=== PATIENT | male | born 1980 | race Caucasian/White ===

== ENCOUNTER 2017-11-24 05:33 | Inpatient (IN) ==
[2017-11-24] MEDS ORDERED: LORazepam 1 MG Tablet PO PRN (05:40)
--- NOTE | 2017-11-24 05:42 | ED ---
HPI General Chief Complaint: Psychiatric Symptoms Stated Complaint: Change in status Time Seen by Provider: 11/24/17 05:39 History of Present Illness HPI narrative: Patient is voluntary at [facility] alcohol detox became confused possibly hallucinating possibly going to alcohol withdrawal in spite of him being on a withdrawal protocol and is paramedics EVAC finds him to be hallucinating tachycardic hypertensive he arrives he is put on a [place] protocol Ativan 2 mg IV push is given and is put on a every 2hr CIWA protocol as well . continues with hallucinations and DT like presentation Related Data Home Medications Medication Instructions Recorded Confirmed desvenlafaxine succinate 50 mg PO DAILY 11/24/17 11/24/17 dexlansoprazole 60 mg PO DAILY 11/24/17 11/24/17 Allergies Allergy/AdvReac Type Severity Reaction Status Date / Time No Known Allergies Allergy Unverified 11/24/17 05:43 Review of Systems ROS Unobtainable ROS Unobtainable: unobtainable due to mental condition (acute alcohol withdrawal hallucinations) [facility] Medical History Medical History ETOH abuse (Acute) Social History Social History Substance History: No History of Abuse Smoking Status: Current every day smoker Tobacco Type: Cigarettes How Often Do You Have a Drink Containing Alcohol: 4 or more times a week Recent Travel in [facility] within the Last 8 Weeks: No Recent Out of Country Travel within the Last 8 Weeks: No Exam Narrative Exam Narrative: GENERAL: diaphoretic confused reacting to internal stimuli SKIN: Warm and diaphoretic HEAD: Atraumatic. Normocephalic. EYES: Pupils equal and round. No scleral icterus. No injection or drainage. ENT: No nasal bleeding or discharge. Mucous membranes pink and moist. NECK: Trachea midline. No JVD. CARDIOVASCULAR: tachycardia , htn RESPIRATORY: No accessory muscle use. Clear to auscultation. Breath sounds equal bilaterally. GASTROINTESTINAL: Abdomen soft, non-tender, nondistended. Hepatic and splenic margins not palpable. MUSCULOSKELETAL: Extremities without clubbing, cyanosis, or edema. No obvious deformities. NEUROLOGICAL: Awake confused ..No obvious cranial nerve deficits. Motor grossly within normal limits. Five out of 5 muscle strength in the arms and legs. bizarre speech reacting to hallucination PSYCHIATRIC: appears to be actively hallucinating in DTs Course Initial Documented Vital Signs Temperature 98.5 F 11/24/17 05:39 Pulse Rate 121 H 11/24/17 05:39 Respiratory Rate 18 11/24/17 05:39 Blood Pressure 145/77 H 11/24/17 05:39 Pulse Oximetry 95 11/24/17 05:39 Last Documented Vital Signs Temperature 101 F H 11/28/17 20:00 Pulse Rate 77 11/29/17 00:00 Respiratory Rate 21 11/28/17 23:45 Blood Pressure 118/74 11/28/17 20:00 Pulse Oximetry 100 11/29/17 01:40 Medical Decision Making MDM Narrative Medical decision making narrative: Pt immediately started on CIWA proeticol and Ativan @ mg IVP immediate and repeated 3 times in first hour still worsening DT benadryl 50 mg IVP and haldol 2 mg IVP and the Ketamine 50 mg IVP and ativan 2 mg followed by 2 mg ativan and then admitted to ICU discussed possible intubation and propofol drip with Dr Guerin of ICU , He will decide whether Intubation indicated when pt arriveds ti ICU Medical Screen Exam Complete: Yes Emergency Medical Condition: Yes Differential Diagnosis Differential Diagnosis: acute polysubstance intox vs acute alcohol withdrawal DTs hypertension tachycardia autonomic instability of etoh withdrawal syndrome acute Lab Data Result diagrams: 11/29/17 05:40 11/29/17 02:23 Lab Results 11/24/17 11/24/17 11/24/17 Range/Units 05:45 05:45 05:45 WBC 8.7 (4.0-11.0) th/mm3 RBC 5.61 (4.50-5.90) mil/mm3 Hgb 17.0 (13.0-17.0) gm/dL Hct 49.6 (39.0-51.0) % MCV 88.3 (80.0-100.0) fL MCH 30.3 (27.0-34.0) pg MCHC 34.3 (32.0-36.0) % RDW 15.2 (11.6-17.2) % Plt Count 184 (150-450) th/mm3 MPV 9.2 (7.0-11.0) fL Prelim Diff (Auto) Neut % (Auto) 77.0 H (16.0-70.0) % Lymph % (Auto) 11.1 (9.0-44.0) % Atkinson % (Auto) 10.7 H (0.0-8.0) % Eos % (Auto) 0.7 (0.0-4.0) % Baso % (Auto) 0.5 (0.0-2.0) % Neut # (Auto) 6.7 (1.8-7.7) th/mm3 Lymph # (Auto) 1.0 (1.0-4.8) th/mm3 Atkinson # (Auto) 0.9 (0.0-0.9) th/mm3 Eos # (Auto) 0.1 (0.0-0.4) th/mm3 Baso # (Auto) 0.0 (0.0-0.2) th/mm3 WBC Differential . Seg Neuts % (Manual) (16-70) % Band Neuts % (Manual) (0-6) % Lymphocytes % (Manual) (9-44) % Monocytes % (Manual) (0-8) % Myelocytes % (Man) (0-0) % Abs Neuts (Manual) (1.8-7.7) th/mm3 Differential Comment Auto diff final Toxic Vacuolation (None) Dohle Bodies (None) Platelet Estimate (Normal) Platelet Morphology (Normal) Stomatocytes (None) PT (9.8-11.6) sec INR Ratio APTT (24.3-30.1) sec Thrombin Time Fibrinogen (227-377) mg/dL Lupus Anticoagulant (NOT DETECTED) LA PTT Screen (< OR = 40) seconds dRVVT Screen (< OR = 45) seconds LA dRVVT Confirm (NEGATIVE) dRVVT Mix (CORRECTED) Hexagonal Phase Confirm APC Resistance (> OR = 2.1) ratio Antithrombin III Activ (80-120) % normal Factor VIII Activity (50-180) % normal Puncture Site Patient Temperature O2 Saturation (90-100) % ABG pH (7.380-7.420) ABG pCO2 (38-42) mmHg ABG pO2 (61-120) mmHG ABG HCO3 (22-26) mmol/L ABG O2 Content (12.0-20.0) Vol % ABG Base Excess (-2-2) mmol/L ABG Methemoglobin (0-2) % Hemal Test Hemoglobin (12.0-16.0) G/DL Carboxyhemoglobin (0-4) % O2 Delivery Device Vent Setting Inspired O2 % Critical Value Sodium 133 L (136-145) meq/L Potassium 3.2 L (3.5-5.1) meq/L Chloride 97 L (98-107) meq/L Carbon Dioxide 22.7 (21.0-32.0) meq/L Anion Gap 13 (5-15) meq/L BUN 8 (7-18) mg/dL Creatinine 1.00 (0.60-1.30) mg/dL Estimated GFR 85 L (>89) mL/min POC Glucose (68-110) mg/dl Random Glucose 119 H (74-106) mg/dL Calcium 9.1 (8.5-10.1) mg/dL Prot Corrected Calcium (8.5-10.1) mg/dL Phosphorus 2.7 (2.5-4.9) mg/dL Magnesium 1.5 (1.5-2.5) mg/dL Total Bilirubin 1.8 H (0.2-1.0) mg/dL AST 154 H (15-37) U/L ALT 158 H (12-78) U/L Alkaline Phosphatase 65 (45-117) U/L Total Creatine Kinase 450 H (39-308) U/L CK-MB (CK-2) 2.1 (0.5-3.6) ng/mL CK-MB (CK-2) % 0.5 (0.0-4.0) % Troponin I (0.02-0.05) ng/mL B-Natriuretic Peptide (0-100) pg/mL Total Protein 8.3 H (6.4-8.2) g/dL Albumin 4.2 (3.4-5.0) g/dL Lipase 131 (73-393) U/L Homocysteine Cardiovas (<11.4) umol/L Urine Color (Yellw/Straw) Urine Clarity (Clear) Urine pH (5.0-8.5) Ur Specific [place] (1.002-1.035) Urine Protein (Neg-Trace) mg/dL Urine Glucose (UA) (Negative) mg/dL Urine Ketones (Negative) mg/dL Urine Occult Blood (Negative) Urine Nitrate (Negative) Urine Bilirubin (Negative) Urine Urobilinogen (Less than 2) mg/dL Ur Leukocyte Esterase (Negative) Urine RBC (0-3) /hpf Urine WBC (0-5) /hpf Ur Squamous Epith Cells (0-5) /hpf Urine Bacteria (None) /hpf Urine Mucus (Occasional) /lpf Micro UA Comment Ur Microscopic Review Urine Culture Comments Nasal Screen MRSA (PCR) (Negative) Vancomycin Trough (5.0-10.0) mcg/mL Urine Opiates Screen (Neg) Ur Barbiturates Screen (Neg) Ur Amphetamines Screen (Neg) U Benzodiazepines Scrn (Neg) Urine Cocaine Screen (Neg) U Cannabinoids Screen (Neg) Serum Alcohol Less than 3 (0-5) mg/dL Hepatitis A IgM Ab (Nonreactive) Hep Bs Antigen (Nonreactive) Hep B Core IgM Ab (Nonreactive) Hep C IgG Ab (Nonreactive) MTHFR Mutation Detect Prothrombin [id number] Mut 11/24/17 11/24/17 11/24/17 Range/Units 07:14 07:33 07:33 WBC (4.0-11.0) th/mm3 RBC (4.50-5.90) mil/mm3 Hgb (13.0-17.0) gm/dL Hct (39.0-51.0) % MCV (80.0-100.0) fL MCH (27.0-34.0) pg MCHC (32.0-36.0) % RDW (11.6-17.2) % Plt Count (150-450) th/mm3 MPV (7.0-11.0) fL Prelim Diff (Auto) Neut % (Auto) (16.0-70.0) % Lymph % (Auto) (9.0-44.0) % Atkinson % (Auto) (0.0-8.0) % Eos % (Auto) (0.0-4.0) % Baso % (Auto) (0.0-2.0) % Neut # (Auto) (1.8-7.7) th/mm3 Lymph # (Auto) (1.0-4.8) th/mm3 Atkinson # (Auto) (0.0-0.9) th/mm3 Eos # (Auto) (0.0-0.4) th/mm3 Baso # (Auto) (0.0-0.2) th/mm3 WBC Differential Seg Neuts % (Manual) (16-70) % Band Neuts % (Manual) (0-6) % Lymphocytes % (Manual) (9-44) % Monocytes % (Manual) (0-8) % Myelocytes % (Man) (0-0) % Abs Neuts (Manual) (1.8-7.7) th/mm3 Differential Comment Toxic Vacuolation (None) Dohle Bodies (None) Platelet Estimate (Normal) Platelet Morphology (Normal) Stomatocytes (None) PT (9.8-11.6) sec INR Ratio APTT (24.3-30.1) sec Thrombin Time Fibrinogen (227-377) mg/dL Lupus Anticoagulant (NOT DETECTED) LA PTT Screen (< OR = 40) seconds dRVVT Screen (< OR = 45) seconds LA dRVVT Confirm (NEGATIVE) dRVVT Mix (CORRECTED) Hexagonal Phase Confirm APC Resistance (> OR = 2.1) ratio Antithrombin III Activ (80-120) % normal Factor VIII Activity (50-180) % normal Puncture Site Patient Temperature O2 Saturation (90-100) % ABG pH (7.380-7.420) ABG pCO2 (38-42) mmHg ABG pO2 (61-120) mmHG ABG HCO3 (22-26) mmol/L ABG O2 Content (12.0-20.0) Vol % ABG Base Excess (-2-2) mmol/L ABG Methemoglobin (0-2) % Hemal Test Hemoglobin (12.0-16.0) G/DL Carboxyhemoglobin (0-4) % O2 Delivery Device Vent Setting Inspired O2 % Critical Value Sodium (136-145) meq/L Potassium (3.5-5.1) meq/L Chloride (98-107) meq/L Carbon Dioxide (21.0-32.0) meq/L Anion Gap (5-15) meq/L BUN (7-18) mg/dL Creatinine (0.60-1.30) mg/dL Estimated GFR (>89) mL/min POC Glucose 123 H (68-110) mg/dl Random Glucose (74-106) mg/dL Calcium (8.5-10.1) mg/dL Prot Corrected Calcium (8.5-10.1) mg/dL Phosphorus (2.5-4.9) mg/dL Magnesium (1.5-2.5) mg/dL Total Bilirubin (0.2-1.0) mg/dL AST (15-37) U/L ALT (12-78) U/L Alkaline Phosphatase (45-117) U/L Total Creatine Kinase (39-308) U/L CK-MB (CK-2) (0.5-3.6) ng/mL CK-MB (CK-2) % (0.0-4.0) % Troponin I (0.02-0.05) ng/mL B-Natriuretic Peptide (0-100) pg/mL Total Protein (6.4-8.2) g/dL Albumin (3.4-5.0) g/dL Lipase (73-393) U/L Homocysteine Cardiovas (<11.4) umol/L Urine Color Yellow (Yellw/Straw) Urine Clarity Clear (Clear) Urine pH 6.0 (5.0-8.5) Ur Specific [place] 1.003 (1.002-1.035) Urine Protein Negative (Neg-Trace) mg/dL Urine Glucose (UA) Negative (Negative) mg/dL Urine Ketones Negative (Negative) mg/dL Urine Occult Blood Negative (Negative) Urine Nitrate Negative (Negative) Urine Bilirubin Negative (Negative) Urine Urobilinogen Less than 2 (Less than 2) mg/dL Ur Leukocyte Esterase Negative (Negative) Urine RBC 1 (0-3) /hpf Urine WBC Less than 1 (0-5) /hpf Ur Squamous Epith Cells (0-5) /hpf Urine Bacteria (None) /hpf Urine Mucus (Occasional) /lpf Micro UA Comment Ur Microscopic Review Not Reportable Urine Culture Comments Nasal Screen MRSA (PCR) (Negative) Vancomycin Trough (5.0-10.0) mcg/mL Urine Opiates Screen Neg (Neg) Ur Barbiturates Screen Neg (Neg) Ur Amphetamines Screen Neg (Neg) U Benzodiazepines Scrn Neg (Neg) Urine Cocaine Screen Neg (Neg) U Cannabinoids Screen Neg (Neg) Serum Alcohol (0-5) mg/dL Hepatitis A IgM Ab (Nonreactive) Hep Bs Antigen (Nonreactive) Hep B Core IgM Ab (Nonreactive) Hep C IgG Ab (Nonreactive) MTHFR Mutation Detect Prothrombin [id number] Mut 11/24/17 11/24/17 11/24/17 Range/Units 10:00 10:31 10:45 WBC (4.0-11.0) th/mm3 RBC (4.50-5.90) mil/mm3 Hgb (13.0-17.0) gm/dL Hct (39.0-51.0) % MCV (80.0-100.0) fL MCH (27.0-34.0) pg MCHC (32.0-36.0) % RDW (11.6-17.2) % Plt Count (150-450) th/mm3 MPV (7.0-11.0) fL Prelim Diff (Auto) Neut % (Auto) (16.0-70.0) % Lymph % (Auto) (9.0-44.0) % Atkinson % (Auto) (0.0-8.0) % Eos % (Auto) (0.0-4.0) % Baso % (Auto) (0.0-2.0) % Neut # (Auto) (1.8-7.7) th/mm3 Lymph # (Auto) (1.0-4.8) th/mm3 Atkinson # (Auto) (0.0-0.9) th/mm3 Eos # (Auto) (0.0-0.4) th/mm3 Baso # (Auto) (0.0-0.2) th/mm3 WBC Differential Seg Neuts % (Manual) (16-70) % Band Neuts % (Manual) (0-6) % Lymphocytes % (Manual) (9-44) % Monocytes % (Manual) (0-8) % Myelocytes % (Man) (0-0) % Abs Neuts (Manual) (1.8-7.7) th/mm3 Differential Comment Toxic Vacuolation (None) Dohle Bodies (None) Platelet Estimate (Normal) Platelet Morphology (Normal) Stomatocytes (None) PT (9.8-11.6) sec INR Ratio APTT (24.3-30.1) sec Thrombin Time Fibrinogen (227-377) mg/dL Lupus Anticoagulant (NOT DETECTED) LA PTT Screen (< OR = 40) seconds dRVVT Screen (< OR = 45) seconds LA dRVVT Confirm (NEGATIVE) dRVVT Mix (CORRECTED) Hexagonal Phase Confirm APC Resistance (> OR = 2.1) ratio Antithrombin III Activ (80-120) % normal Factor VIII Activity (50-180) % normal Puncture Site Right radial Patient Temperature 98.6 O2 Saturation 95 (90-100) % ABG pH 7.39 (7.380-7.420) ABG pCO2 40 (38-42) mmHg ABG pO2 114 (61-120) mmHG ABG HCO3 23 (22-26) mmol/L ABG O2 Content 20.1 H (12.0-20.0) Vol % ABG Base Excess -0.9 (-2-2) mmol/L ABG Methemoglobin 1.6 (0-2) % Hemal Test Present Hemoglobin 14.9 (12.0-16.0) G/DL Carboxyhemoglobin 0.9 (0-4) % O2 Delivery Device Ventilator Vent Setting [id number] Inspired O2 50 % Critical Value No Sodium (136-145) meq/L Potassium (3.5-5.1) meq/L Chloride (98-107) meq/L Carbon Dioxide (21.0-32.0) meq/L Anion Gap (5-15) meq/L BUN (7-18) mg/dL Creatinine (0.60-1.30) mg/dL Estimated GFR (>89) mL/min POC Glucose (68-110) mg/dl Random Glucose (74-106) mg/dL Calcium (8.5-10.1) mg/dL Prot Corrected Calcium (8.5-10.1) mg/dL Phosphorus (2.5-4.9) mg/dL Magnesium (1.5-2.5) mg/dL Total Bilirubin (0.2-1.0) mg/dL AST (15-37) U/L ALT (12-78) U/L Alkaline Phosphatase (45-117) U/L Total Creatine Kinase (39-308) U/L CK-MB (CK-2) (0.5-3.6) ng/mL CK-MB (CK-2) % (0.0-4.0) % Troponin I (0.02-0.05) ng/mL B-Natriuretic Peptide (0-100) pg/mL Total Protein (6.4-8.2) g/dL Albumin (3.4-5.0) g/dL Lipase (73-393) U/L Homocysteine Cardiovas (<11.4) umol/L Urine Color (Yellw/Straw) Urine Clarity (Clear) Urine pH (5.0-8.5) Ur Specific [place] (1.002-1.035) Urine Protein (Neg-Trace) mg/dL Urine Glucose (UA) (Negative) mg/dL Urine Ketones (Negative) mg/dL Urine Occult Blood (Negative) Urine Nitrate (Negative) Urine Bilirubin (Negative) Urine Urobilinogen (Less than 2) mg/dL Ur Leukocyte Esterase (Negative) Urine RBC (0-3) /hpf Urine WBC (0-5) /hpf Ur Squamous Epith Cells (0-5) /hpf Urine Bacteria (None) /hpf Urine Mucus (Occasional) /lpf Micro UA Comment Ur Microscopic Review Urine Culture Comments Nasal Screen MRSA (PCR) Not detected (Negative) Vancomycin Trough (5.0-10.0) mcg/mL Urine Opiates Screen (Neg) Ur Barbiturates Screen (Neg) Ur Amphetamines Screen (Neg) U Benzodiazepines Scrn (Neg) Urine Cocaine Screen (Neg) U Cannabinoids Screen (Neg) Serum Alcohol (0-5) mg/dL Hepatitis A IgM Ab Nonreactive (Nonreactive) Hep Bs Antigen Nonreactive (Nonreactive) Hep B Core IgM Ab Nonreactive (Nonreactive) Hep C IgG Ab Nonreactive (Nonreactive) MTHFR Mutation Detect Prothrombin [id number] Mut 11/24/17 11/24/17 11/24/17 Range/Units 11:16 12:07 16:46 WBC (4.0-11.0) th/mm3 RBC (4.50-5.90) mil/mm3 Hgb (13.0-17.0) gm/dL Hct (39.0-51.0) % MCV (80.0-100.0) fL MCH (27.0-34.0) pg MCHC (32.0-36.0) % RDW (11.6-17.2) % Plt Count (150-450) th/mm3 MPV (7.0-11.0) fL Prelim Diff (Auto) Neut % (Auto) (16.0-70.0) % Lymph % (Auto) (9.0-44.0) % Atkinson % (Auto) (0.0-8.0) % Eos % (Auto) (0.0-4.0) % Baso % (Auto) (0.0-2.0) % Neut # (Auto) (1.8-7.7) th/mm3 Lymph # (Auto) (1.0-4.8) th/mm3 Atkinson # (Auto) (0.0-0.9) th/mm3 Eos # (Auto) (0.0-0.4) th/mm3 Baso # (Auto) (0.0-0.2) th/mm3 WBC Differential Seg Neuts % (Manual) (16-70) % Band Neuts % (Manual) (0-6) % Lymphocytes % (Manual) (9-44) % Monocytes % (Manual) (0-8) % Myelocytes % (Man) (0-0) % Abs Neuts (Manual) (1.8-7.7) th/mm3 Differential Comment Toxic Vacuolation (None) Dohle Bodies (None) Platelet Estimate (Normal) Platelet Morphology (Normal) Stomatocytes (None) PT (9.8-11.6) sec INR Ratio APTT (24.3-30.1) sec Thrombin Time Fibrinogen (227-377) mg/dL Lupus Anticoagulant (NOT DETECTED) LA PTT Screen (< OR = 40) seconds dRVVT Screen (< OR = 45) seconds LA dRVVT Confirm (NEGATIVE) dRVVT Mix (CORRECTED) Hexagonal Phase Confirm APC Resistance (> OR = 2.1) ratio Antithrombin III Activ (80-120) % normal Factor VIII Activity (50-180) % normal Puncture Site Patient Temperature O2 Saturation (90-100) % ABG pH (7.380-7.420) ABG pCO2 (38-42) mmHg ABG pO2 (61-120) mmHG ABG HCO3 (22-26) mmol/L ABG O2 Content (12.0-20.0) Vol % ABG Base Excess (-2-2) mmol/L ABG Methemoglobin (0-2) % Hemal Test Hemoglobin (12.0-16.0) G/DL Carboxyhemoglobin (0-4) % O2 Delivery Device Vent Setting Inspired O2 % Critical Value Sodium (136-145) meq/L Potassium (3.5-5.1) meq/L Chloride (98-107) meq/L Carbon Dioxide (21.0-32.0) meq/L Anion Gap (5-15) meq/L BUN (7-18) mg/dL Creatinine (0.60-1.30) mg/dL Estimated GFR (>89) mL/min POC Glucose 112 H 127 H (68-110) mg/dl Random Glucose (74-106) mg/dL Calcium (8.5-10.1) mg/dL Prot Corrected Calcium (8.5-10.1) mg/dL Phosphorus (2.5-4.9) mg/dL Magnesium (1.5-2.5) mg/dL Total Bilirubin (0.2-1.0) mg/dL AST (15-37) U/L ALT (12-78) U/L Alkaline Phosphatase (45-117) U/L Total Creatine Kinase (39-308) U/L CK-MB (CK-2) (0.5-3.6) ng/mL CK-MB (CK-2) % (0.0-4.0) % Troponin I (0.02-0.05) ng/mL B-Natriuretic Peptide (0-100) pg/mL Total Protein (6.4-8.2) g/dL Albumin (3.4-5.0) g/dL Lipase (73-393) U/L Homocysteine Cardiovas (<11.4) umol/L Urine Color (Yellw/Straw) Urine Clarity (Clear) Urine pH (5.0-8.5) Ur Specific [place] (1.002-1.035) Urine Protein (Neg-Trace) mg/dL Urine Glucose (UA) (Negative) mg/dL Urine Ketones (Negative) mg/dL Urine Occult Blood (Negative) Urine Nitrate (Negative) Urine Bilirubin (Negative) Urine Urobilinogen (Less than 2) mg/dL Ur Leukocyte Esterase (Negative) Urine RBC (0-3) /hpf Urine WBC (0-5) /hpf Ur Squamous Epith Cells (0-5) /hpf Urine Bacteria (None) /hpf Urine Mucus (Occasional) /lpf Micro UA Comment Ur Microscopic Review Urine Culture Comments Nasal Screen MRSA (PCR) (Negative) Vancomycin Trough (5.0-10.0) mcg/mL Urine Opiates Screen Neg (Neg) Ur Barbiturates Screen Neg (Neg) Ur Amphetamines Screen Neg (Neg) U Benzodiazepines Scrn Neg (Neg) Urine Cocaine Screen Neg (Neg) U Cannabinoids Screen Neg (Neg) Serum Alcohol (0-5) mg/dL Hepatitis A IgM Ab (Nonreactive) Hep Bs Antigen (Nonreactive) Hep B Core IgM Ab (Nonreactive) Hep C IgG Ab (Nonreactive) MTHFR Mutation Detect Prothrombin [id number] Mut 11/25/17 11/25/17 11/25/17 Range/Units 00:06 00:46 04:04 WBC 8.3 (4.0-11.0) th/mm3 RBC 4.91 (4.50-5.90) mil/mm3 Hgb 14.8 D (13.0-17.0) gm/dL Hct 43.8 (39.0-51.0) % MCV 89.2 (80.0-100.0) fL MCH 30.1 (27.0-34.0) pg MCHC 33.7 (32.0-36.0) % RDW 15.3 (11.6-17.2) % Plt Count 147 L (150-450) th/mm3 MPV 9.6 (7.0-11.0) fL Prelim Diff (Auto) Neut % (Auto) 68.8 (16.0-70.0) % Lymph % (Auto) 16.0 (9.0-44.0) % Atkinson % (Auto) 9.6 H (0.0-8.0) % Eos % (Auto) 4.5 H (0.0-4.0) % Baso % (Auto) 1.1 (0.0-2.0) % Neut # (Auto) 5.7 (1.8-7.7) th/mm3 Lymph # (Auto) 1.3 (1.0-4.8) th/mm3 Atkinson # (Auto) 0.8 (0.0-0.9) th/mm3 Eos # (Auto) 0.4 (0.0-0.4) th/mm3 Baso # (Auto) 0.1 (0.0-0.2) th/mm3 WBC Differential . Seg Neuts % (Manual) (16-70) % Band Neuts % (Manual) (0-6) % Lymphocytes % (Manual) (9-44) % Monocytes % (Manual) (0-8) % Myelocytes % (Man) (0-0) % Abs Neuts (Manual) (1.8-7.7) th/mm3 Differential Comment Auto diff final Toxic Vacuolation (None) Dohle Bodies (None) Platelet Estimate (Normal) Platelet Morphology (Normal) Stomatocytes (None) PT (9.8-11.6) sec INR Ratio APTT (24.3-30.1) sec Thrombin Time Fibrinogen (227-377) mg/dL Lupus Anticoagulant (NOT DETECTED) LA PTT Screen (< OR = 40) seconds dRVVT Screen (< OR = 45) seconds LA dRVVT Confirm (NEGATIVE) dRVVT Mix (CORRECTED) Hexagonal Phase Confirm APC Resistance (> OR = 2.1) ratio Antithrombin III Activ (80-120) % normal Factor VIII Activity (50-180) % normal Puncture Site Patient Temperature O2 Saturation (90-100) % ABG pH (7.380-7.420) ABG pCO2 (38-42) mmHg ABG pO2 (61-120) mmHG ABG HCO3 (22-26) mmol/L ABG O2 Content (12.0-20.0) Vol % ABG Base Excess (-2-2) mmol/L ABG Methemoglobin (0-2) % Hemal Test Hemoglobin (12.0-16.0) G/DL Carboxyhemoglobin (0-4) % O2 Delivery Device Vent Setting Inspired O2 % Critical Value Sodium (136-145) meq/L Potassium 3.4 L (3.5-5.1) meq/L Chloride (98-107) meq/L Carbon Dioxide (21.0-32.0) meq/L Anion Gap (5-15) meq/L BUN (7-18) mg/dL Creatinine (0.60-1.30) mg/dL Estimated GFR (>89) mL/min POC Glucose 103 (68-110) mg/dl Random Glucose (74-106) mg/dL Calcium (8.5-10.1) mg/dL Prot Corrected Calcium (8.5-10.1) mg/dL Phosphorus (2.5-4.9) mg/dL Magnesium (1.5-2.5) mg/dL Total Bilirubin (0.2-1.0) mg/dL AST (15-37) U/L ALT (12-78) U/L Alkaline Phosphatase (45-117) U/L Total Creatine Kinase (39-308) U/L CK-MB (CK-2) (0.5-3.6) ng/mL CK-MB (CK-2) % (0.0-4.0) % Troponin I (0.02-0.05) ng/mL B-Natriuretic Peptide (0-100) pg/mL Total Protein (6.4-8.2) g/dL Albumin (3.4-5.0) g/dL Lipase (73-393) U/L Homocysteine Cardiovas (<11.4) umol/L Urine Color (Yellw/Straw) Urine Clarity (Clear) Urine pH (5.0-8.5) Ur Specific Forest (1.002-1.035) Urine Protein (Neg-Trace) mg/dL Urine Glucose (UA) (Negative) mg/dL Urine Ketones (Negative) mg/dL Urine Occult Blood (Negative) Urine Nitrate (Negative) Urine Bilirubin (Negative) Urine Urobilinogen (Less than 2) mg/dL Ur Leukocyte Esterase (Negative) Urine RBC (0-3) /hpf Urine WBC (0-5) /hpf Ur Squamous Epith Cells (0-5) /hpf Urine Bacteria (None) /hpf Urine Mucus (Occasional) /lpf Micro UA Comment Ur Microscopic Review Urine Culture Comments Nasal Screen MRSA (PCR) (Negative) Vancomycin Trough (5.0-10.0) mcg/mL Urine Opiates Screen (Neg) Ur Barbiturates Screen (Neg) Ur Amphetamines Screen (Neg) U Benzodiazepines Scrn (Neg) Urine Cocaine Screen (Neg) U Cannabinoids Screen (Neg) Serum Alcohol (0-5) mg/dL Hepatitis A IgM Ab (Nonreactive) Hep Bs Antigen (Nonreactive) Hep B Core IgM Ab (Nonreactive) Hep C IgG Ab (Nonreactive) MTHFR Mutation Detect Prothrombin [id number] Mut 11/25/17 11/25/17 11/25/17 Range/Units 04:04 05:25 11:00 WBC (4.0-11.0) th/mm3 RBC (4.50-5.90) mil/mm3 Hgb (13.0-17.0) gm/dL Hct (39.0-51.0) % MCV (80.0-100.0) fL MCH (27.0-34.0) pg MCHC (32.0-36.0) % RDW (11.6-17.2) % Plt Count (150-450) th/mm3 MPV (7.0-11.0) fL Prelim Diff (Auto) Neut % (Auto) (16.0-70.0) % Lymph % (Auto) (9.0-44.0) % Atkinson % (Auto) (0.0-8.0) % Eos % (Auto) (0.0-4.0) % Baso % (Auto) (0.0-2.0) % Neut # (Auto) (1.8-7.7) th/mm3 Lymph # (Auto) (1.0-4.8) th/mm3 Atkinson # (Auto) (0.0-0.9) th/mm3 Eos # (Auto) (0.0-0.4) th/mm3 Baso # (Auto) (0.0-0.2) th/mm3 WBC Differential Seg Neuts % (Manual) (16-70) % Band Neuts % (Manual) (0-6) % Lymphocytes % (Manual) (9-44) % Monocytes % (Manual) (0-8) % Myelocytes % (Man) (0-0) % Abs Neuts (Manual) (1.8-7.7) th/mm3 Differential Comment Toxic Vacuolation (None) Dohle Bodies (None) Platelet Estimate (Normal) Platelet Morphology (Normal) Stomatocytes (None) PT (9.8-11.6) sec INR Ratio APTT (24.3-30.1) sec Thrombin Time Fibrinogen (227-377) mg/dL Lupus Anticoagulant (NOT DETECTED) LA PTT Screen (< OR = 40) seconds dRVVT Screen (< OR = 45) seconds LA dRVVT Confirm (NEGATIVE) dRVVT Mix (CORRECTED) Hexagonal Phase Confirm APC Resistance (> OR = 2.1) ratio Antithrombin III Activ (80-120) % normal Factor VIII Activity (50-180) % normal Puncture Site Patient Temperature O2 Saturation (90-100) % ABG pH (7.380-7.420) ABG pCO2 (38-42) mmHg ABG pO2 (61-120) mmHG ABG HCO3 (22-26) mmol/L ABG O2 Content (12.0-20.0) Vol % ABG Base Excess (-2-2) mmol/L ABG Methemoglobin (0-2) % Hemal Test Hemoglobin (12.0-16.0) G/DL Carboxyhemoglobin (0-4) % O2 Delivery Device Vent Setting Inspired O2 % Critical Value Sodium 143 D (136-145) meq/L Potassium 3.3 L 3.5 (3.5-5.1) meq/L Chloride 109 H D (98-107) meq/L Carbon Dioxide 24.4 (21.0-32.0) meq/L Anion Gap 10 (5-15) meq/L BUN 6 L (7-18) mg/dL Creatinine 0.84 (0.60-1.30) mg/dL Estimated GFR Greater than 89 (>89) mL/min POC Glucose 109 (68-110) mg/dl Random Glucose 79 (74-106) mg/dL Calcium 7.9 L D (8.5-10.1) mg/dL Prot Corrected Calcium (8.5-10.1) mg/dL Phosphorus 2.5 (2.5-4.9) mg/dL Magnesium 2.5 D (1.5-2.5) mg/dL Total Bilirubin 0.9 (0.2-1.0) mg/dL AST 243 H (15-37) U/L ALT 224 H (12-78) U/L Alkaline Phosphatase 55 (45-117) U/L Total Creatine Kinase (39-308) U/L CK-MB (CK-2) (0.5-3.6) ng/mL CK-MB (CK-2) % (0.0-4.0) % Troponin I (0.02-0.05) ng/mL B-Natriuretic Peptide (0-100) pg/mL Total Protein 6.4 D (6.4-8.2) g/dL Albumin 3.1 L D (3.4-5.0) g/dL Lipase (73-393) U/L Homocysteine Cardiovas (<11.4) umol/L Urine Color (Yellw/Straw) Urine Clarity (Clear) Urine pH (5.0-8.5) Ur Specific [place] (1.002-1.035) Urine Protein (Neg-Trace) mg/dL Urine Glucose (UA) (Negative) mg/dL Urine Ketones (Negative) mg/dL Urine Occult Blood (Negative) Urine Nitrate (Negative) Urine Bilirubin (Negative) Urine Urobilinogen (Less than 2) mg/dL Ur Leukocyte Esterase (Negative) Urine RBC (0-3) /hpf Urine WBC (0-5) /hpf Ur Squamous Epith Cells (0-5) /hpf Urine Bacteria (None) /hpf Urine Mucus (Occasional) /lpf Micro UA Comment Ur Microscopic Review Urine Culture Comments Nasal Screen MRSA (PCR) (Negative) Vancomycin Trough (5.0-10.0) mcg/mL Urine Opiates Screen (Neg) Ur Barbiturates Screen (Neg) Ur Amphetamines Screen (Neg) U Benzodiazepines Scrn (Neg) Urine Cocaine Screen (Neg) U Cannabinoids Screen (Neg) Serum Alcohol (0-5) mg/dL Hepatitis A IgM Ab (Nonreactive) Hep Bs Antigen (Nonreactive) Hep B Core IgM Ab (Nonreactive) Hep C IgG Ab (Nonreactive) MTHFR Mutation Detect Prothrombin [id number] Mut 11/25/17 11/25/17 11/26/17 Range/Units 11:52 17:13 00:23 WBC (4.0-11.0) th/mm3 RBC (4.50-5.90) mil/mm3 Hgb (13.0-17.0) gm/dL Hct (39.0-51.0) % MCV (80.0-100.0) fL MCH (27.0-34.0) pg MCHC (32.0-36.0) % RDW (11.6-17.2) % Plt Count (150-450) th/mm3 MPV (7.0-11.0) fL Prelim Diff (Auto) Neut % (Auto) (16.0-70.0) % Lymph % (Auto) (9.0-44.0) % Atkinson % (Auto) (0.0-8.0) % Eos % (Auto) (0.0-4.0) % Baso % (Auto) (0.0-2.0) % Neut # (Auto) (1.8-7.7) th/mm3 Lymph # (Auto) (1.0-4.8) th/mm3 Atkinson # (Auto) (0.0-0.9) th/mm3 Eos # (Auto) (0.0-0.4) th/mm3 Baso # (Auto) (0.0-0.2) th/mm3 WBC Differential Seg Neuts % (Manual) (16-70) % Band Neuts % (Manual) (0-6) % Lymphocytes % (Manual) (9-44) % Monocytes % (Manual) (0-8) % Myelocytes % (Man) (0-0) % Abs Neuts (Manual) (1.8-7.7) th/mm3 Differential Comment Toxic Vacuolation (None) Dohle Bodies (None) Platelet Estimate (Normal) Platelet Morphology (Normal) Stomatocytes (None) PT (9.8-11.6) sec INR Ratio APTT (24.3-30.1) sec Thrombin Time Fibrinogen (227-377) mg/dL Lupus Anticoagulant (NOT DETECTED) LA PTT Screen (< OR = 40) seconds dRVVT Screen (< OR = 45) seconds LA dRVVT Confirm (NEGATIVE) dRVVT Mix (CORRECTED) Hexagonal Phase Confirm APC Resistance (> OR = 2.1) ratio Antithrombin III Activ (80-120) % normal Factor VIII Activity (50-180) % normal Puncture Site Patient Temperature O2 Saturation (90-100) % ABG pH (7.380-7.420) ABG pCO2 (38-42) mmHg ABG pO2 (61-120) mmHG ABG HCO3 (22-26) mmol/L ABG O2 Content (12.0-20.0) Vol % ABG Base Excess (-2-2) mmol/L ABG Methemoglobin (0-2) % Hemal Test Hemoglobin (12.0-16.0) G/DL Carboxyhemoglobin (0-4) % O2 Delivery Device Vent Setting Inspired O2 % Critical Value Sodium (136-145) meq/L Potassium (3.5-5.1) meq/L Chloride (98-107) meq/L Carbon Dioxide (21.0-32.0) meq/L Anion Gap (5-15) meq/L BUN (7-18) mg/dL Creatinine (0.60-1.30) mg/dL Estimated GFR (>89) mL/min POC Glucose 114 H 103 92 (68-110) mg/dl Random Glucose (74-106) mg/dL Calcium (8.5-10.1) mg/dL Prot Corrected Calcium (8.5-10.1) mg/dL Phosphorus (2.5-4.9) mg/dL Magnesium (1.5-2.5) mg/dL Total Bilirubin (0.2-1.0) mg/dL AST (15-37) U/L ALT (12-78) U/L Alkaline Phosphatase (45-117) U/L Total Creatine Kinase (39-308) U/L CK-MB (CK-2) (0.5-3.6) ng/mL CK-MB (CK-2) % (0.0-4.0) % Troponin I (0.02-0.05) ng/mL B-Natriuretic Peptide (0-100) pg/mL Total Protein (6.4-8.2) g/dL Albumin (3.4-5.0) g/dL Lipase (73-393) U/L Homocysteine Cardiovas (<11.4) umol/L Urine Color (Yellw/Straw) Urine Clarity (Clear) Urine pH (5.0-8.5) Ur Specific [place] (1.002-1.035) Urine Protein (Neg-Trace) mg/dL Urine Glucose (UA) (Negative) mg/dL Urine Ketones (Negative) mg/dL Urine Occult Blood (Negative) Urine Nitrate (Negative) Urine Bilirubin (Negative) Urine Urobilinogen (Less than 2) mg/dL Ur Leukocyte Esterase (Negative) Urine RBC (0-3) /hpf Urine WBC (0-5) /hpf Ur Squamous Epith Cells (0-5) /hpf Urine Bacteria (None) /hpf Urine Mucus (Occasional) /lpf Micro UA Comment Ur Microscopic Review Urine Culture Comments Nasal Screen MRSA (PCR) (Negative) Vancomycin Trough (5.0-10.0) mcg/mL Urine Opiates Screen (Neg) Ur Barbiturates Screen (Neg) Ur Amphetamines Screen (Neg) U Benzodiazepines Scrn (Neg) Urine Cocaine Screen (Neg) U Cannabinoids Screen (Neg) Serum Alcohol (0-5) mg/dL Hepatitis A IgM Ab (Nonreactive) Hep Bs Antigen (Nonreactive) Hep B Core IgM Ab (Nonreactive) Hep C IgG Ab (Nonreactive) MTHFR Mutation Detect Prothrombin [id number] Mut 11/26/17 11/26/17 11/26/17 Range/Units 03:38 05:05 05:38 WBC 13.6 H (4.0-11.0) th/mm3 RBC 5.06 (4.50-5.90) mil/mm3 Hgb 15.2 (13.0-17.0) gm/dL Hct 45.1 (39.0-51.0) % MCV 89.2 (80.0-100.0) fL MCH 30.0 (27.0-34.0) pg MCHC 33.7 (32.0-36.0) % RDW 16.0 (11.6-17.2) % Plt Count 158 (150-450) th/mm3 MPV 9.1 (7.0-11.0) fL Prelim Diff (Auto) Slide review pending Neut % (Auto) 84.6 H (16.0-70.0) % Lymph % (Auto) 4.3 L (9.0-44.0) % Atkinson % (Auto) 10.4 H (0.0-8.0) % Eos % (Auto) 0.4 (0.0-4.0) % Baso % (Auto) 0.3 (0.0-2.0) % Neut # (Auto) 11.5 H (1.8-7.7) th/mm3 Lymph # (Auto) 0.6 L (1.0-4.8) th/mm3 Atkinson # (Auto) 1.4 H (0.0-0.9) th/mm3 Eos # (Auto) 0.1 (0.0-0.4) th/mm3 Baso # (Auto) 0.0 (0.0-0.2) th/mm3 WBC Differential Manual diff final Seg Neuts % (Manual) 70 (16-70) % Band Neuts % (Manual) 19 H (0-6) % Lymphocytes % (Manual) 3 L (9-44) % Monocytes % (Manual) 7 (0-8) % Myelocytes % (Man) 1 H (0-0) % Abs Neuts (Manual) 12.2 H (1.8-7.7) th/mm3 Differential Comment . Toxic Vacuolation Present H (None) Dohle Bodies Present H (None) Platelet Estimate Normal (Normal) Platelet Morphology Normal (Normal) Stomatocytes 1+ H (None) PT (9.8-11.6) sec INR Ratio APTT (24.3-30.1) sec Thrombin Time Fibrinogen (227-377) mg/dL Lupus Anticoagulant (NOT DETECTED) LA PTT Screen (< OR = 40) seconds dRVVT Screen (< OR = 45) seconds LA dRVVT Confirm (NEGATIVE) dRVVT Mix (CORRECTED) Hexagonal Phase Confirm APC Resistance (> OR = 2.1) ratio Antithrombin III Activ (80-120) % normal Factor VIII Activity (50-180) % normal Puncture Site Right radial Right radial Patient Temperature 98.6 98.6 O2 Saturation 91 93 (90-100) % ABG pH 7.34 L 7.35 L (7.380-7.420) ABG pCO2 48 H 42 (38-42) mmHg ABG pO2 73 83 (61-120) mmHG ABG HCO3 25 23 (22-26) mmol/L ABG O2 Content 19.5 21.0 H (12.0-20.0) Vol % ABG Base Excess 0.1 -2.0 (-2-2) mmol/L ABG Methemoglobin 1.8 1.7 (0-2) % Hemal Test Present Present Hemoglobin 15.4 16.0 (12.0-16.0) G/DL Carboxyhemoglobin 0.8 0.6 (0-4) % O2 Delivery Device Ventilator Ventilator Vent Setting Aprv/biphasic Inspired O2 100 100 % Critical Value No No Sodium (136-145) meq/L Potassium (3.5-5.1) meq/L Chloride (98-107) meq/L Carbon Dioxide (21.0-32.0) meq/L Anion Gap (5-15) meq/L BUN (7-18) mg/dL Creatinine (0.60-1.30) mg/dL Estimated GFR (>89) mL/min POC Glucose (68-110) mg/dl Random Glucose (74-106) mg/dL Calcium (8.5-10.1) mg/dL Prot Corrected Calcium (8.5-10.1) mg/dL Phosphorus (2.5-4.9) mg/dL Magnesium (1.5-2.5) mg/dL Total Bilirubin (0.2-1.0) mg/dL AST (15-37) U/L ALT (12-78) U/L Alkaline Phosphatase (45-117) U/L Total Creatine Kinase (39-308) U/L CK-MB (CK-2) (0.5-3.6) ng/mL CK-MB (CK-2) % (0.0-4.0) % Troponin I (0.02-0.05) ng/mL B-Natriuretic Peptide (0-100) pg/mL Total Protein (6.4-8.2) g/dL Albumin (3.4-5.0) g/dL Lipase (73-393) U/L Homocysteine Cardiovas (<11.4) umol/L Urine Color (Yellw/Straw) Urine Clarity (Clear) Urine pH (5.0-8.5) Ur Specific [place] (1.002-1.035) Urine Protein (Neg-Trace) mg/dL Urine Glucose (UA) (Negative) mg/dL Urine Ketones (Negative) mg/dL Urine Occult Blood (Negative) Urine Nitrate (Negative) Urine Bilirubin (Negative) Urine Urobilinogen (Less than 2) mg/dL Ur Leukocyte Esterase (Negative) Urine RBC (0-3) /hpf Urine WBC (0-5) /hpf Ur Squamous Epith Cells (0-5) /hpf Urine Bacteria (None) /hpf Urine Mucus (Occasional) /lpf Micro UA Comment Ur Microscopic Review Urine Culture Comments Nasal Screen MRSA (PCR) (Negative) Vancomycin Trough (5.0-10.0) mcg/mL Urine Opiates Screen (Neg) Ur Barbiturates Screen (Neg) Ur Amphetamines Screen (Neg) U Benzodiazepines Scrn (Neg) Urine Cocaine Screen (Neg) U Cannabinoids Screen (Neg) Serum Alcohol (0-5) mg/dL Hepatitis A IgM Ab (Nonreactive) Hep Bs Antigen (Nonreactive) Hep B Core IgM Ab (Nonreactive) Hep C IgG Ab (Nonreactive) MTHFR Mutation Detect Prothrombin [id number] Mut 11/26/17 11/26/17 11/26/17 Range/Units 05:38 05:57 06:45 WBC (4.0-11.0) th/mm3 RBC (4.50-5.90) mil/mm3 Hgb (13.0-17.0) gm/dL Hct (39.0-51.0) % MCV (80.0-100.0) fL MCH (27.0-34.0) pg MCHC (32.0-36.0) % RDW (11.6-17.2) % Plt Count (150-450) th/mm3 MPV (7.0-11.0) fL Prelim Diff (Auto) Neut % (Auto) (16.0-70.0) % Lymph % (Auto) (9.0-44.0) % Atkinson % (Auto) (0.0-8.0) % Eos % (Auto) (0.0-4.0) % Baso % (Auto) (0.0-2.0) % Neut # (Auto) (1.8-7.7) th/mm3 Lymph # (Auto) (1.0-4.8) th/mm3 Atkinson # (Auto) (0.0-0.9) th/mm3 Eos # (Auto) (0.0-0.4) th/mm3 Baso # (Auto) (0.0-0.2) th/mm3 WBC Differential Seg Neuts % (Manual) (16-70) % Band Neuts % (Manual) (0-6) % Lymphocytes % (Manual) (9-44) % Monocytes % (Manual) (0-8) % Myelocytes % (Man) (0-0) % Abs Neuts (Manual) (1.8-7.7) th/mm3 Differential Comment Toxic Vacuolation (None) Dohle Bodies (None) Platelet Estimate (Normal) Platelet Morphology (Normal) Stomatocytes (None) PT (9.8-11.6) sec INR Ratio APTT (24.3-30.1) sec Thrombin Time Fibrinogen (227-377) mg/dL Lupus Anticoagulant (NOT DETECTED) LA PTT Screen (< OR = 40) seconds dRVVT Screen (< OR = 45) seconds LA dRVVT Confirm (NEGATIVE) dRVVT Mix (CORRECTED) Hexagonal Phase Confirm APC Resistance (> OR = 2.1) ratio Antithrombin III Activ (80-120) % normal Factor VIII Activity (50-180) % normal Puncture Site Art line Patient Temperature 98.6 O2 Saturation 91 (90-100) % ABG pH 7.40 (7.380-7.420) ABG pCO2 37 L (38-42) mmHg ABG pO2 67 (61-120) mmHG ABG HCO3 23 (22-26) mmol/L ABG O2 Content 19.1 (12.0-20.0) Vol % ABG Base Excess -1.3 (-2-2) mmol/L ABG Methemoglobin 1.7 (0-2) % Hemal Test Present Hemoglobin 15.0 (12.0-16.0) G/DL Carboxyhemoglobin 0.9 (0-4) % O2 Delivery Device Ventilator Vent Setting See comments Inspired O2 100 % Critical Value No Sodium 140 (136-145) meq/L Potassium 3.4 L (3.5-5.1) meq/L Chloride 107 (98-107) meq/L Carbon Dioxide 23.9 (21.0-32.0) meq/L Anion Gap 9 (5-15) meq/L BUN 7 (7-18) mg/dL Creatinine 1.04 (0.60-1.30) mg/dL Estimated GFR 81 L (>89) mL/min POC Glucose 96 (68-110) mg/dl Random Glucose 95 (74-106) mg/dL Calcium 8.0 L (8.5-10.1) mg/dL Prot Corrected Calcium (8.5-10.1) mg/dL Phosphorus 3.2 (2.5-4.9) mg/dL Magnesium 2.1 (1.5-2.5) mg/dL Total Bilirubin 1.5 H (0.2-1.0) mg/dL AST 144 H (15-37) U/L ALT 183 H (12-78) U/L Alkaline Phosphatase 90 (45-117) U/L Total Creatine Kinase (39-308) U/L CK-MB (CK-2) (0.5-3.6) ng/mL CK-MB (CK-2) % (0.0-4.0) % Troponin I (0.02-0.05) ng/mL B-Natriuretic Peptide (0-100) pg/mL Total Protein 6.8 (6.4-8.2) g/dL Albumin 3.1 L (3.4-5.0) g/dL Lipase (73-393) U/L Homocysteine Cardiovas (<11.4) umol/L Urine Color (Yellw/Straw) Urine Clarity (Clear) Urine pH (5.0-8.5) Ur Specific [place] (1.002-1.035) Urine Protein (Neg-Trace) mg/dL Urine Glucose (UA) (Negative) mg/dL Urine Ketones (Negative) mg/dL Urine Occult Blood (Negative) Urine Nitrate (Negative) Urine Bilirubin (Negative) Urine Urobilinogen (Less than 2) mg/dL Ur Leukocyte Esterase (Negative) Urine RBC (0-3) /hpf Urine WBC (0-5) /hpf Ur Squamous Epith Cells (0-5) /hpf Urine Bacteria (None) /hpf Urine Mucus (Occasional) /lpf Micro UA Comment Ur Microscopic Review Urine Culture Comments Nasal Screen MRSA (PCR) (Negative) Vancomycin Trough (5.0-10.0) mcg/mL Urine Opiates Screen (Neg) Ur Barbiturates Screen (Neg) Ur Amphetamines Screen (Neg) U Benzodiazepines Scrn (Neg) Urine Cocaine Screen (Neg) U Cannabinoids Screen (Neg) Serum Alcohol (0-5) mg/dL Hepatitis A IgM Ab (Nonreactive) Hep Bs Antigen (Nonreactive) Hep B Core IgM Ab (Nonreactive) Hep C IgG Ab (Nonreactive) MTHFR Mutation Detect Prothrombin [id number] Mut 11/26/17 11/26/17 11/26/17 Range/Units 10:20 10:20 11:00 WBC (4.0-11.0) th/mm3 RBC (4.50-5.90) mil/mm3 Hgb (13.0-17.0) gm/dL Hct (39.0-51.0) % MCV (80.0-100.0) fL MCH (27.0-34.0) pg MCHC (32.0-36.0) % RDW (11.6-17.2) % Plt Count (150-450) th/mm3 MPV (7.0-11.0) fL Prelim Diff (Auto) Neut % (Auto) (16.0-70.0) % Lymph % (Auto) (9.0-44.0) % Atkinson % (Auto) (0.0-8.0) % Eos % (Auto) (0.0-4.0) % Baso % (Auto) (0.0-2.0) % Neut # (Auto) (1.8-7.7) th/mm3 Lymph # (Auto) (1.0-4.8) th/mm3 Atkinson # (Auto) (0.0-0.9) th/mm3 Eos # (Auto) (0.0-0.4) th/mm3 Baso # (Auto) (0.0-0.2) th/mm3 WBC Differential Seg Neuts % (Manual) (16-70) % Band Neuts % (Manual) (0-6) % Lymphocytes % (Manual) (9-44) % Monocytes % (Manual) (0-8) % Myelocytes % (Man) (0-0) % Abs Neuts (Manual) (1.8-7.7) th/mm3 Differential Comment Toxic Vacuolation (None) Dohle Bodies (None) Platelet Estimate (Normal) Platelet Morphology (Normal) Stomatocytes (None) PT 10.3 (9.8-11.6) sec INR 1.0 Ratio APTT 25.5 (24.3-30.1) sec Thrombin Time Fibrinogen 464 H (227-377) mg/dL Lupus Anticoagulant (NOT DETECTED) LA PTT Screen (< OR = 40) seconds dRVVT Screen (< OR = 45) seconds LA dRVVT Confirm (NEGATIVE) dRVVT Mix (CORRECTED) Hexagonal Phase Confirm APC Resistance (> OR = 2.1) ratio Antithrombin III Activ (80-120) % normal Factor VIII Activity (50-180) % normal Puncture Site Patient Temperature O2 Saturation (90-100) % ABG pH (7.380-7.420) ABG pCO2 (38-42) mmHg ABG pO2 (61-120) mmHG ABG HCO3 (22-26) mmol/L ABG O2 Content (12.0-20.0) Vol % ABG Base Excess (-2-2) mmol/L ABG Methemoglobin (0-2) % Hemal Test Hemoglobin (12.0-16.0) G/DL Carboxyhemoglobin (0-4) % O2 Delivery Device Vent Setting Inspired O2 % Critical Value Sodium (136-145) meq/L Potassium (3.5-5.1) meq/L Chloride (98-107) meq/L Carbon Dioxide (21.0-32.0) meq/L Anion Gap (5-15) meq/L BUN (7-18) mg/dL Creatinine (0.60-1.30) mg/dL Estimated GFR (>89) mL/min POC Glucose (68-110) mg/dl Random Glucose (74-106) mg/dL Calcium (8.5-10.1) mg/dL Prot Corrected Calcium (8.5-10.1) mg/dL Phosphorus (2.5-4.9) mg/dL Magnesium (1.5-2.5) mg/dL Total Bilirubin (0.2-1.0) mg/dL AST (15-37) U/L ALT (12-78) U/L Alkaline Phosphatase (45-117) U/L Total Creatine Kinase (39-308) U/L CK-MB (CK-2) (0.5-3.6) ng/mL CK-MB (CK-2) % (0.0-4.0) % Troponin I Less than 0.02 L (0.02-0.05) ng/mL B-Natriuretic Peptide 25 (0-100) pg/mL Total Protein (6.4-8.2) g/dL Albumin (3.4-5.0) g/dL Lipase (73-393) U/L Homocysteine Cardiovas (<11.4) umol/L Urine Color (Yellw/Straw) Urine Clarity (Clear) Urine pH (5.0-8.5) Ur Specific [place] (1.002-1.035) Urine Protein (Neg-Trace) mg/dL Urine Glucose (UA) (Negative) mg/dL Urine Ketones (Negative) mg/dL Urine Occult Blood (Negative) Urine Nitrate (Negative) Urine Bilirubin (Negative) Urine Urobilinogen (Less than 2) mg/dL Ur Leukocyte Esterase (Negative) Urine RBC (0-3) /hpf Urine WBC (0-5) /hpf Ur Squamous Epith Cells (0-5) /hpf Urine Bacteria (None) /hpf Urine Mucus (Occasional) /lpf Micro UA Comment Ur Microscopic Review Urine Culture Comments Nasal Screen MRSA (PCR) (Negative) Vancomycin Trough (5.0-10.0) mcg/mL Urine Opiates Screen (Neg) Ur Barbiturates Screen (Neg) Ur Amphetamines Screen (Neg) U Benzodiazepines Scrn (Neg) Urine Cocaine Screen (Neg) U Cannabinoids Screen (Neg) Serum Alcohol (0-5) mg/dL Hepatitis A IgM Ab (Nonreactive) Hep Bs Antigen (Nonreactive) Hep B Core IgM Ab (Nonreactive) Hep C IgG Ab (Nonreactive) MTHFR Mutation Detect Prothrombin [id number] Mut 11/26/17 11/26/17 11/26/17 Range/Units 11:00 11:00 11:04 WBC (4.0-11.0) th/mm3 RBC (4.50-5.90) mil/mm3 Hgb (13.0-17.0) gm/dL Hct (39.0-51.0) % MCV (80.0-100.0) fL MCH (27.0-34.0) pg MCHC (32.0-36.0) % RDW (11.6-17.2) % Plt Count (150-450) th/mm3 MPV (7.0-11.0) fL Prelim Diff (Auto) Neut % (Auto) (16.0-70.0) % Lymph % (Auto) (9.0-44.0) % Atkinson % (Auto) (0.0-8.0) % Eos % (Auto) (0.0-4.0) % Baso % (Auto) (0.0-2.0) % Neut # (Auto) (1.8-7.7) th/mm3 Lymph # (Auto) (1.0-4.8) th/mm3 Atkinson # (Auto) (0.0-0.9) th/mm3 Eos # (Auto) (0.0-0.4) th/mm3 Baso # (Auto) (0.0-0.2) th/mm3 WBC Differential Seg Neuts % (Manual) (16-70) % Band Neuts % (Manual) (0-6) % Lymphocytes % (Manual) (9-44) % Monocytes % (Manual) (0-8) % Myelocytes % (Man) (0-0) % Abs Neuts (Manual) (1.8-7.7) th/mm3 Differential Comment Toxic Vacuolation (None) Dohle Bodies (None) Platelet Estimate (Normal) Platelet Morphology (Normal) Stomatocytes (None) PT (9.8-11.6) sec INR Ratio APTT (24.3-30.1) sec Thrombin Time ND Fibrinogen (227-377) mg/dL Lupus Anticoagulant (NOT DETECTED) LA PTT Screen 35 (< OR = 40) seconds dRVVT Screen 47 H (< OR = 45) seconds LA dRVVT Confirm Positive A (NEGATIVE) dRVVT Mix Corrected (CORRECTED) Hexagonal Phase Confirm ND APC Resistance 5.0 (> OR = 2.1) ratio Antithrombin III Activ 85 (80-120) % normal Factor VIII Activity 151 (50-180) % normal Puncture Site Patient Temperature O2 Saturation (90-100) % ABG pH (7.380-7.420) ABG pCO2 (38-42) mmHg ABG pO2 (61-120) mmHG ABG HCO3 (22-26) mmol/L ABG O2 Content (12.0-20.0) Vol % ABG Base Excess (-2-2) mmol/L ABG Methemoglobin (0-2) % Hemal Test Hemoglobin (12.0-16.0) G/DL Carboxyhemoglobin (0-4) % O2 Delivery Device Vent Setting Inspired O2 % Critical Value Sodium (136-145) meq/L Potassium (3.5-5.1) meq/L Chloride (98-107) meq/L Carbon Dioxide (21.0-32.0) meq/L Anion Gap (5-15) meq/L BUN (7-18) mg/dL Creatinine (0.60-1.30) mg/dL Estimated GFR (>89) mL/min POC Glucose 95 (68-110) mg/dl Random Glucose (74-106) mg/dL Calcium (8.5-10.1) mg/dL Prot Corrected Calcium (8.5-10.1) mg/dL Phosphorus (2.5-4.9) mg/dL Magnesium (1.5-2.5) mg/dL Total Bilirubin (0.2-1.0) mg/dL AST (15-37) U/L ALT (12-78) U/L Alkaline Phosphatase (45-117) U/L Total Creatine Kinase (39-308) U/L CK-MB (CK-2) (0.5-3.6) ng/mL CK-MB (CK-2) % (0.0-4.0) % Troponin I (0.02-0.05) ng/mL B-Natriuretic Peptide (0-100) pg/mL Total Protein (6.4-8.2) g/dL Albumin (3.4-5.0) g/dL Lipase (73-393) U/L Homocysteine Cardiovas 7.4 (<11.4) umol/L Urine Color (Yellw/Straw) Urine Clarity (Clear) Urine pH (5.0-8.5) Ur Specific [place] (1.002-1.035) Urine Protein (Neg-Trace) mg/dL Urine Glucose (UA) (Negative) mg/dL Urine Ketones (Negative) mg/dL Urine Occult Blood (Negative) Urine Nitrate (Negative) Urine Bilirubin (Negative) Urine Urobilinogen (Less than 2) mg/dL Ur Leukocyte Esterase (Negative) Urine RBC (0-3) /hpf Urine WBC (0-5) /hpf Ur Squamous Epith Cells (0-5) /hpf Urine Bacteria (None) /hpf Urine Mucus (Occasional) /lpf Micro UA Comment Ur Microscopic Review Urine Culture Comments Nasal Screen MRSA (PCR) (Negative) Vancomycin Trough (5.0-10.0) mcg/mL Urine Opiates Screen (Neg) Ur Barbiturates Screen (Neg) Ur Amphetamines Screen (Neg) U Benzodiazepines Scrn (Neg) Urine Cocaine Screen (Neg) U Cannabinoids Screen (Neg) Serum Alcohol (0-5) mg/dL Hepatitis A IgM Ab (Nonreactive) Hep Bs Antigen (Nonreactive) Hep B Core IgM Ab (Nonreactive) Hep C IgG Ab (Nonreactive) MTHFR Mutation Detect Prothrombin [id number] Mut 11/26/17 11/26/17 11/26/17 Range/Units 11:40 15:35 18:17 WBC (4.0-11.0) th/mm3 RBC (4.50-5.90) mil/mm3 Hgb (13.0-17.0) gm/dL Hct (39.0-51.0) % MCV (80.0-100.0) fL MCH (27.0-34.0) pg MCHC (32.0-36.0) % RDW (11.6-17.2) % Plt Count (150-450) th/mm3 MPV (7.0-11.0) fL Prelim Diff (Auto) Neut % (Auto) (16.0-70.0) % Lymph % (Auto) (9.0-44.0) % Atkinson % (Auto) (0.0-8.0) % Eos % (Auto) (0.0-4.0) % Baso % (Auto) (0.0-2.0) % Neut # (Auto) (1.8-7.7) th/mm3 Lymph # (Auto) (1.0-4.8) th/mm3 Atkinson # (Auto) (0.0-0.9) th/mm3 Eos # (Auto) (0.0-0.4) th/mm3 Baso # (Auto) (0.0-0.2) th/mm3 WBC Differential Seg Neuts % (Manual) (16-70) % Band Neuts % (Manual) (0-6) % Lymphocytes % (Manual) (9-44) % Monocytes % (Manual) (0-8) % Myelocytes % (Man) (0-0) % Abs Neuts (Manual) (1.8-7.7) th/mm3 Differential Comment Toxic Vacuolation (None) Dohle Bodies (None) Platelet Estimate (Normal) Platelet Morphology (Normal) Stomatocytes (None) PT (9.8-11.6) sec INR Ratio APTT 50.7 H D (24.3-30.1) sec Thrombin Time Fibrinogen (227-377) mg/dL Lupus Anticoagulant (NOT DETECTED) LA PTT Screen (< OR = 40) seconds dRVVT Screen (< OR = 45) seconds LA dRVVT Confirm (NEGATIVE) dRVVT Mix (CORRECTED) Hexagonal Phase Confirm APC Resistance (> OR = 2.1) ratio Antithrombin III Activ (80-120) % normal Factor VIII Activity (50-180) % normal Puncture Site Patient Temperature O2 Saturation (90-100) % ABG pH (7.380-7.420) ABG pCO2 (38-42) mmHg ABG pO2 (61-120) mmHG ABG HCO3 (22-26) mmol/L ABG O2 Content (12.0-20.0) Vol % ABG Base Excess (-2-2) mmol/L ABG Methemoglobin (0-2) % Hemal Test Hemoglobin (12.0-16.0) G/DL Carboxyhemoglobin (0-4) % O2 Delivery Device Vent Setting Inspired O2 % Critical Value Sodium (136-145) meq/L Potassium (3.5-5.1) meq/L Chloride (98-107) meq/L Carbon Dioxide (21.0-32.0) meq/L Anion Gap (5-15) meq/L BUN (7-18) mg/dL Creatinine (0.60-1.30) mg/dL Estimated GFR (>89) mL/min POC Glucose 100 (68-110) mg/dl Random Glucose (74-106) mg/dL Calcium (8.5-10.1) mg/dL Prot Corrected Calcium (8.5-10.1) mg/dL Phosphorus (2.5-4.9) mg/dL Magnesium (1.5-2.5) mg/dL Total Bilirubin (0.2-1.0) mg/dL AST (15-37) U/L ALT (12-78) U/L Alkaline Phosphatase (45-117) U/L Total Creatine Kinase (39-308) U/L CK-MB (CK-2) (0.5-3.6) ng/mL CK-MB (CK-2) % (0.0-4.0) % Troponin I (0.02-0.05) ng/mL B-Natriuretic Peptide (0-100) pg/mL Total Protein (6.4-8.2) g/dL Albumin (3.4-5.0) g/dL Lipase (73-393) U/L Homocysteine Cardiovas (<11.4) umol/L Urine Color Yellow (Yellw/Straw) Urine Clarity Clear (Clear) Urine pH 5.0 (5.0-8.5) Ur Specific [place] 1.051 H (1.002-1.035) Urine Protein Negative (Neg-Trace) mg/dL Urine Glucose (UA) Negative (Negative) mg/dL Urine Ketones Negative (Negative) mg/dL Urine Occult Blood Negative (Negative) Urine Nitrate Negative (Negative) Urine Bilirubin Negative (Negative) Urine Urobilinogen Less than 2 (Less than 2) mg/dL Ur Leukocyte Esterase Negative (Negative) Urine RBC 4 H (0-3) /hpf Urine WBC 1 (0-5) /hpf Ur Squamous Epith Cells <1 (0-5) /hpf Urine Bacteria Rare H (None) /hpf Urine Mucus Few H (Occasional) /lpf Micro UA Comment Cath-culture ind Ur Microscopic Review Not Reportable Urine Culture Comments Cath-cult indicated Nasal Screen MRSA (PCR) (Negative) Vancomycin Trough (5.0-10.0) mcg/mL Urine Opiates Screen (Neg) Ur Barbiturates Screen (Neg) Ur Amphetamines Screen (Neg) U Benzodiazepines Scrn (Neg) Urine Cocaine Screen (Neg) U Cannabinoids Screen (Neg) Serum Alcohol (0-5) mg/dL Hepatitis A IgM Ab (Nonreactive) Hep Bs Antigen (Nonreactive) Hep B Core IgM Ab (Nonreactive) Hep C IgG Ab (Nonreactive) MTHFR Mutation Detect Prothrombin [id number] Mut 11/26/17 11/27/17 11/27/17 Range/Units 18:20 00:59 01:00 WBC 10.1 (4.0-11.0) th/mm3 RBC 4.36 L (4.50-5.90) mil/mm3 Hgb 13.2 D (13.0-17.0) gm/dL Hct 38.3 L (39.0-51.0) % MCV 87.9 (80.0-100.0) fL MCH 30.3 (27.0-34.0) pg MCHC 34.5 (32.0-36.0) % RDW 15.6 (11.6-17.2) % Plt Count 131 L (150-450) th/mm3 MPV 9.3 (7.0-11.0) fL Prelim Diff (Auto) Neut % (Auto) (16.0-70.0) % Lymph % (Auto) (9.0-44.0) % Atkinson % (Auto) (0.0-8.0) % Eos % (Auto) (0.0-4.0) % Baso % (Auto) (0.0-2.0) % Neut # (Auto) (1.8-7.7) th/mm3 Lymph # (Auto) (1.0-4.8) th/mm3 Atkinson # (Auto) (0.0-0.9) th/mm3 Eos # (Auto) (0.0-0.4) th/mm3 Baso # (Auto) (0.0-0.2) th/mm3 WBC Differential Seg Neuts % (Manual) (16-70) % Band Neuts % (Manual) (0-6) % Lymphocytes % (Manual) (9-44) % Monocytes % (Manual) (0-8) % Myelocytes % (Man) (0-0) % Abs Neuts (Manual) (1.8-7.7) th/mm3 Differential Comment Toxic Vacuolation (None) Dohle Bodies (None) Platelet Estimate (Normal) Platelet Morphology (Normal) Stomatocytes (None) PT (9.8-11.6) sec INR Ratio APTT 54.1 H (24.3-30.1) sec Thrombin Time Fibrinogen (227-377) mg/dL Lupus Anticoagulant (NOT DETECTED) LA PTT Screen (< OR = 40) seconds dRVVT Screen (< OR = 45) seconds LA dRVVT Confirm (NEGATIVE) dRVVT Mix (CORRECTED) Hexagonal Phase Confirm APC Resistance (> OR = 2.1) ratio Antithrombin III Activ (80-120) % normal Factor VIII Activity (50-180) % normal Puncture Site Patient Temperature O2 Saturation (90-100) % ABG pH (7.380-7.420) ABG pCO2 (38-42) mmHg ABG pO2 (61-120) mmHG ABG HCO3 (22-26) mmol/L ABG O2 Content (12.0-20.0) Vol % ABG Base Excess (-2-2) mmol/L ABG Methemoglobin (0-2) % Hemal Test Hemoglobin (12.0-16.0) G/DL Carboxyhemoglobin (0-4) % O2 Delivery Device Vent Setting Inspired O2 % Critical Value Sodium (136-145) meq/L Potassium (3.5-5.1) meq/L Chloride (98-107) meq/L Carbon Dioxide (21.0-32.0) meq/L Anion Gap (5-15) meq/L BUN (7-18) mg/dL Creatinine (0.60-1.30) mg/dL Estimated GFR (>89) mL/min POC Glucose 115 H (68-110) mg/dl Random Glucose (74-106) mg/dL Calcium (8.5-10.1) mg/dL Prot Corrected Calcium (8.5-10.1) mg/dL Phosphorus (2.5-4.9) mg/dL Magnesium (1.5-2.5) mg/dL Total Bilirubin (0.2-1.0) mg/dL AST (15-37) U/L ALT (12-78) U/L Alkaline Phosphatase (45-117) U/L Total Creatine Kinase (39-308) U/L CK-MB (CK-2) (0.5-3.6) ng/mL CK-MB (CK-2) % (0.0-4.0) % Troponin I (0.02-0.05) ng/mL B-Natriuretic Peptide (0-100) pg/mL Total Protein (6.4-8.2) g/dL Albumin (3.4-5.0) g/dL Lipase (73-393) U/L Homocysteine Cardiovas (<11.4) umol/L Urine Color (Yellw/Straw) Urine Clarity (Clear) Urine pH (5.0-8.5) Ur Specific [place] (1.002-1.035) Urine Protein (Neg-Trace) mg/dL Urine Glucose (UA) (Negative) mg/dL Urine Ketones (Negative) mg/dL Urine Occult Blood (Negative) Urine Nitrate (Negative) Urine Bilirubin (Negative) Urine Urobilinogen (Less than 2) mg/dL Ur Leukocyte Esterase (Negative) Urine RBC (0-3) /hpf Urine WBC (0-5) /hpf Ur Squamous Epith Cells (0-5) /hpf Urine Bacteria (None) /hpf Urine Mucus (Occasional) /lpf Micro UA Comment Ur Microscopic Review Urine Culture Comments Nasal Screen MRSA (PCR) (Negative) Vancomycin Trough (5.0-10.0) mcg/mL Urine Opiates Screen (Neg) Ur Barbiturates Screen (Neg) Ur Amphetamines Screen (Neg) U Benzodiazepines Scrn (Neg) Urine Cocaine Screen (Neg) U Cannabinoids Screen (Neg) Serum Alcohol (0-5) mg/dL Hepatitis A IgM Ab (Nonreactive) Hep Bs Antigen (Nonreactive) Hep B Core IgM Ab (Nonreactive) Hep C IgG Ab (Nonreactive) MTHFR Mutation Detect Prothrombin [id number] Mut 11/27/17 11/27/17 11/27/17 Range/Units 01:00 01:00 05:47 WBC (4.0-11.0) th/mm3 RBC (4.50-5.90) mil/mm3 Hgb (13.0-17.0) gm/dL Hct (39.0-51.0) % MCV (80.0-100.0) fL MCH (27.0-34.0) pg MCHC (32.0-36.0) % RDW (11.6-17.2) % Plt Count (150-450) th/mm3 MPV (7.0-11.0) fL Prelim Diff (Auto) Neut % (Auto) (16.0-70.0) % Lymph % (Auto) (9.0-44.0) % Atkinson % (Auto) (0.0-8.0) % Eos % (Auto) (0.0-4.0) % Baso % (Auto) (0.0-2.0) % Neut # (Auto) (1.8-7.7) th/mm3 Lymph # (Auto) (1.0-4.8) th/mm3 Atkinson # (Auto) (0.0-0.9) th/mm3 Eos # (Auto) (0.0-0.4) th/mm3 Baso # (Auto) (0.0-0.2) th/mm3 WBC Differential Seg Neuts % (Manual) (16-70) % Band Neuts % (Manual) (0-6) % Lymphocytes % (Manual) (9-44) % Monocytes % (Manual) (0-8) % Myelocytes % (Man) (0-0) % Abs Neuts (Manual) (1.8-7.7) th/mm3 Differential Comment Toxic Vacuolation (None) Dohle Bodies (None) Platelet Estimate (Normal) Platelet Morphology (Normal) Stomatocytes (None) PT 10.7 (9.8-11.6) sec INR 1.1 Ratio APTT 60.4 H (24.3-30.1) sec Thrombin Time Fibrinogen (227-377) mg/dL Lupus Anticoagulant (NOT DETECTED) LA PTT Screen (< OR = 40) seconds dRVVT Screen (< OR = 45) seconds LA dRVVT Confirm (NEGATIVE) dRVVT Mix (CORRECTED) Hexagonal Phase Confirm APC Resistance (> OR = 2.1) ratio Antithrombin III Activ (80-120) % normal Factor VIII Activity (50-180) % normal Puncture Site Art line Patient Temperature 98.6 O2 Saturation 94 (90-100) % ABG pH 7.47 H (7.380-7.420) ABG pCO2 30 L (38-42) mmHg ABG pO2 78 (61-120) mmHG ABG HCO3 22 (22-26) mmol/L ABG O2 Content 18.1 (12.0-20.0) Vol % ABG Base Excess -1.5 (-2-2) mmol/L ABG Methemoglobin 1.6 (0-2) % Hemal Test Present Hemoglobin 13.7 (12.0-16.0) G/DL Carboxyhemoglobin 0.9 (0-4) % O2 Delivery Device Ventilator Vent Setting Pc/ac Inspired O2 45 % Critical Value No Sodium 141 (136-145) meq/L Potassium 3.2 L (3.5-5.1) meq/L Chloride 106 (98-107) meq/L Carbon Dioxide 22.8 (21.0-32.0) meq/L Anion Gap 12 (5-15) meq/L BUN 9 (7-18) mg/dL Creatinine 0.69 (0.60-1.30) mg/dL Estimated GFR Greater than 89 (>89) mL/min POC Glucose (68-110) mg/dl Random Glucose 104 (74-106) mg/dL Calcium 7.3 L* (8.5-10.1) mg/dL Prot Corrected Calcium 7.8 L (8.5-10.1) mg/dL Phosphorus 2.3 L (2.5-4.9) mg/dL Magnesium 1.9 (1.5-2.5) mg/dL Total Bilirubin 1.5 H (0.2-1.0) mg/dL AST 58 H (15-37) U/L ALT 109 H (12-78) U/L Alkaline Phosphatase 56 (45-117) U/L Total Creatine Kinase (39-308) U/L CK-MB (CK-2) (0.5-3.6) ng/mL CK-MB (CK-2) % (0.0-4.0) % Troponin I (0.02-0.05) ng/mL B-Natriuretic Peptide (0-100) pg/mL Total Protein 6.2 L D (6.4-8.2) g/dL Albumin 2.5 L D (3.4-5.0) g/dL Lipase (73-393) U/L Homocysteine Cardiovas (<11.4) umol/L Urine Color (Yellw/Straw) Urine Clarity (Clear) Urine pH (5.0-8.5) Ur Specific [place] (1.002-1.035) Urine Protein (Neg-Trace) mg/dL Urine Glucose (UA) (Negative) mg/dL Urine Ketones (Negative) mg/dL Urine Occult Blood (Negative) Urine Nitrate (Negative) Urine Bilirubin (Negative) Urine Urobilinogen (Less than 2) mg/dL Ur Leukocyte Esterase (Negative) Urine RBC (0-3) /hpf Urine WBC (0-5) /hpf Ur Squamous Epith Cells (0-5) /hpf Urine Bacteria (None) /hpf Urine Mucus (Occasional) /lpf Micro UA Comment Ur Microscopic Review Urine Culture Comments Nasal Screen MRSA (PCR) (Negative) Vancomycin Trough (5.0-10.0) mcg/mL Urine Opiates Screen (Neg) Ur Barbiturates Screen (Neg) Ur Amphetamines Screen (Neg) U Benzodiazepines Scrn (Neg) Urine Cocaine Screen (Neg) U Cannabinoids Screen (Neg) Serum Alcohol (0-5) mg/dL Hepatitis A IgM Ab (Nonreactive) Hep Bs Antigen (Nonreactive) Hep B Core IgM Ab (Nonreactive) Hep C IgG Ab (Nonreactive) MTHFR Mutation Detect Prothrombin [id number] Mut 11/27/17 11/27/17 11/27/17 Range/Units 06:20 06:35 08:14 WBC (4.0-11.0) th/mm3 RBC (4.50-5.90) mil/mm3 Hgb (13.0-17.0) gm/dL Hct (39.0-51.0) % MCV (80.0-100.0) fL MCH (27.0-34.0) pg MCHC (32.0-36.0) % RDW (11.6-17.2) % Plt Count (150-450) th/mm3 MPV (7.0-11.0) fL Prelim Diff (Auto) Neut % (Auto) (16.0-70.0) % Lymph % (Auto) (9.0-44.0) % Atkinson % (Auto) (0.0-8.0) % Eos % (Auto) (0.0-4.0) % Baso % (Auto) (0.0-2.0) % Neut # (Auto) (1.8-7.7) th/mm3 Lymph # (Auto) (1.0-4.8) th/mm3 Atkinson # (Auto) (0.0-0.9) th/mm3 Eos # (Auto) (0.0-0.4) th/mm3 Baso # (Auto) (0.0-0.2) th/mm3 WBC Differential Seg Neuts % (Manual) (16-70) % Band Neuts % (Manual) (0-6) % Lymphocytes % (Manual) (9-44) % Monocytes % (Manual) (0-8) % Myelocytes % (Man) (0-0) % Abs Neuts (Manual) (1.8-7.7) th/mm3 Differential Comment Toxic Vacuolation (None) Dohle Bodies (None) Platelet Estimate (Normal) Platelet Morphology (Normal) Stomatocytes (None) PT (9.8-11.6) sec INR Ratio APTT 54.0 H (24.3-30.1) sec Thrombin Time Fibrinogen (227-377) mg/dL Lupus Anticoagulant (NOT DETECTED) LA PTT Screen (< OR = 40) seconds dRVVT Screen (< OR = 45) seconds LA dRVVT Confirm (NEGATIVE) dRVVT Mix (CORRECTED) Hexagonal Phase Confirm APC Resistance (> OR = 2.1) ratio Antithrombin III Activ (80-120) % normal Factor VIII Activity (50-180) % normal Puncture Site Art line Patient Temperature 98.6 O2 Saturation 96 (90-100) % ABG pH 7.47 H (7.380-7.420) ABG pCO2 29 L (38-42) mmHg ABG pO2 129 H (61-120) mmHG ABG HCO3 21 L (22-26) mmol/L ABG O2 Content 17.5 (12.0-20.0) Vol % ABG Base Excess -2.6 L (-2-2) mmol/L ABG Methemoglobin 1.7 (0-2) % Hemal Test Present Hemoglobin 12.8 (12.0-16.0) G/DL Carboxyhemoglobin 0.9 (0-4) % O2 Delivery Device Ventilator Vent Setting Aprv/bilevel Inspired O2 45 % Critical Value No Sodium (136-145) meq/L Potassium (3.5-5.1) meq/L Chloride (98-107) meq/L Carbon Dioxide (21.0-32.0) meq/L Anion Gap (5-15) meq/L BUN (7-18) mg/dL Creatinine (0.60-1.30) mg/dL Estimated GFR (>89) mL/min POC Glucose 102 (68-110) mg/dl Random Glucose (74-106) mg/dL Calcium (8.5-10.1) mg/dL Prot Corrected Calcium (8.5-10.1) mg/dL Phosphorus (2.5-4.9) mg/dL Magnesium (1.5-2.5) mg/dL Total Bilirubin (0.2-1.0) mg/dL AST (15-37) U/L ALT (12-78) U/L Alkaline Phosphatase (45-117) U/L Total Creatine Kinase (39-308) U/L CK-MB (CK-2) (0.5-3.6) ng/mL CK-MB (CK-2) % (0.0-4.0) % Troponin I (0.02-0.05) ng/mL B-Natriuretic Peptide (0-100) pg/mL Total Protein (6.4-8.2) g/dL Albumin (3.4-5.0) g/dL Lipase (73-393) U/L Homocysteine Cardiovas (<11.4) umol/L Urine Color (Yellw/Straw) Urine Clarity (Clear) Urine pH (5.0-8.5) Ur Specific [place] (1.002-1.035) Urine Protein (Neg-Trace) mg/dL Urine Glucose (UA) (Negative) mg/dL Urine Ketones (Negative) mg/dL Urine Occult Blood (Negative) Urine Nitrate (Negative) Urine Bilirubin (Negative) Urine Urobilinogen (Less than 2) mg/dL Ur Leukocyte Esterase (Negative) Urine RBC (0-3) /hpf Urine WBC (0-5) /hpf Ur Squamous Epith Cells (0-5) /hpf Urine Bacteria (None) /hpf Urine Mucus (Occasional) /lpf Micro UA Comment Ur Microscopic Review Urine Culture Comments Nasal Screen MRSA (PCR) (Negative) Vancomycin Trough (5.0-10.0) mcg/mL Urine Opiates Screen (Neg) Ur Barbiturates Screen (Neg) Ur Amphetamines Screen (Neg) U Benzodiazepines Scrn (Neg) Urine Cocaine Screen (Neg) U Cannabinoids Screen (Neg) Serum Alcohol (0-5) mg/dL Hepatitis A IgM Ab (Nonreactive) Hep Bs Antigen (Nonreactive) Hep B Core IgM Ab (Nonreactive) Hep C IgG Ab (Nonreactive) MTHFR Mutation Detect Prothrombin [id number] Mut 11/27/17 11/27/17 11/27/17 Range/Units 11:47 17:20 17:25 WBC (4.0-11.0) th/mm3 RBC (4.50-5.90) mil/mm3 Hgb (13.0-17.0) gm/dL Hct (39.0-51.0) % MCV (80.0-100.0) fL MCH (27.0-34.0) pg MCHC (32.0-36.0) % RDW (11.6-17.2) % Plt Count (150-450) th/mm3 MPV (7.0-11.0) fL Prelim Diff (Auto) Neut % (Auto) (16.0-70.0) % Lymph % (Auto) (9.0-44.0) % Atkinson % (Auto) (0.0-8.0) % Eos % (Auto) (0.0-4.0) % Baso % (Auto) (0.0-2.0) % Neut # (Auto) (1.8-7.7) th/mm3 Lymph # (Auto) (1.0-4.8) th/mm3 Atkinson # (Auto) (0.0-0.9) th/mm3 Eos # (Auto) (0.0-0.4) th/mm3 Baso # (Auto) (0.0-0.2) th/mm3 WBC Differential Seg Neuts % (Manual) (16-70) % Band Neuts % (Manual) (0-6) % Lymphocytes % (Manual) (9-44) % Monocytes % (Manual) (0-8) % Myelocytes % (Man) (0-0) % Abs Neuts (Manual) (1.8-7.7) th/mm3 Differential Comment Toxic Vacuolation (None) Dohle Bodies (None) Platelet Estimate (Normal) Platelet Morphology (Normal) Stomatocytes (None) PT (9.8-11.6) sec INR Ratio APTT (24.3-30.1) sec Thrombin Time Fibrinogen (227-377) mg/dL Lupus Anticoagulant (NOT DETECTED) LA PTT Screen (< OR = 40) seconds dRVVT Screen (< OR = 45) seconds LA dRVVT Confirm (NEGATIVE) dRVVT Mix (CORRECTED) Hexagonal Phase Confirm APC Resistance (> OR = 2.1) ratio Antithrombin III Activ (80-120) % normal Factor VIII Activity (50-180) % normal Puncture Site Patient Temperature O2 Saturation (90-100) % ABG pH (7.380-7.420) ABG pCO2 (38-42) mmHg ABG pO2 (61-120) mmHG ABG HCO3 (22-26) mmol/L ABG O2 Content (12.0-20.0) Vol % ABG Base Excess (-2-2) mmol/L ABG Methemoglobin (0-2) % Hemal Test Hemoglobin (12.0-16.0) G/DL Carboxyhemoglobin (0-4) % O2 Delivery Device Vent Setting Inspired O2 % Critical Value Sodium (136-145) meq/L Potassium 3.6 (3.5-5.1) meq/L Chloride (98-107) meq/L Carbon Dioxide (21.0-32.0) meq/L Anion Gap (5-15) meq/L BUN (7-18) mg/dL Creatinine (0.60-1.30) mg/dL Estimated GFR (>89) mL/min POC Glucose 100 124 H (68-110) mg/dl Random Glucose (74-106) mg/dL Calcium (8.5-10.1) mg/dL Prot Corrected Calcium (8.5-10.1) mg/dL Phosphorus (2.5-4.9) mg/dL Magnesium (1.5-2.5) mg/dL Total Bilirubin (0.2-1.0) mg/dL AST (15-37) U/L ALT (12-78) U/L Alkaline Phosphatase (45-117) U/L Total Creatine Kinase (39-308) U/L CK-MB (CK-2) (0.5-3.6) ng/mL CK-MB (CK-2) % (0.0-4.0) % Troponin I (0.02-0.05) ng/mL B-Natriuretic Peptide (0-100) pg/mL Total Protein (6.4-8.2) g/dL Albumin (3.4-5.0) g/dL Lipase (73-393) U/L Homocysteine Cardiovas (<11.4) umol/L Urine Color (Yellw/Straw) Urine Clarity (Clear) Urine pH (5.0-8.5) Ur Specific [place] (1.002-1.035) Urine Protein (Neg-Trace) mg/dL Urine Glucose (UA) (Negative) mg/dL Urine Ketones (Negative) mg/dL Urine Occult Blood (Negative) Urine Nitrate (Negative) Urine Bilirubin (Negative) Urine Urobilinogen (Less than 2) mg/dL Ur Leukocyte Esterase (Negative) Urine RBC (0-3) /hpf Urine WBC (0-5) /hpf Ur Squamous Epith Cells (0-5) /hpf Urine Bacteria (None) /hpf Urine Mucus (Occasional) /lpf Micro UA Comment Ur Microscopic Review Urine Culture Comments Nasal Screen MRSA (PCR) (Negative) Vancomycin Trough (5.0-10.0) mcg/mL Urine Opiates Screen (Neg) Ur Barbiturates Screen (Neg) Ur Amphetamines Screen (Neg) U Benzodiazepines Scrn (Neg) Urine Cocaine Screen (Neg) U Cannabinoids Screen (Neg) Serum Alcohol (0-5) mg/dL Hepatitis A IgM Ab (Nonreactive) Hep Bs Antigen (Nonreactive) Hep B Core IgM Ab (Nonreactive) Hep C IgG Ab (Nonreactive) MTHFR Mutation Detect Prothrombin [id number] Mut 11/28/17 11/28/17 11/28/17 Range/Units 00:50 04:08 04:08 WBC 7.9 (4.0-11.0) th/mm3 RBC 3.80 L (4.50-5.90) mil/mm3 Hgb 11.4 L (13.0-17.0) gm/dL Hct 33.1 L (39.0-51.0) % MCV 87.1 (80.0-100.0) fL MCH 30.1 (27.0-34.0) pg MCHC 34.5 (32.0-36.0) % RDW 15.3 (11.6-17.2) % Plt Count 138 L (150-450) th/mm3 MPV 9.9 (7.0-11.0) fL Prelim Diff (Auto) Neut % (Auto) (16.0-70.0) % Lymph % (Auto) (9.0-44.0) % Atkinson % (Auto) (0.0-8.0) % Eos % (Auto) (0.0-4.0) % Baso % (Auto) (0.0-2.0) % Neut # (Auto) (1.8-7.7) th/mm3 Lymph # (Auto) (1.0-4.8) th/mm3 Atkinson # (Auto) (0.0-0.9) th/mm3 Eos # (Auto) (0.0-0.4) th/mm3 Baso # (Auto) (0.0-0.2) th/mm3 WBC Differential Seg Neuts % (Manual) (16-70) % Band Neuts % (Manual) (0-6) % Lymphocytes % (Manual) (9-44) % Monocytes % (Manual) (0-8) % Myelocytes % (Man) (0-0) % Abs Neuts (Manual) (1.8-7.7) th/mm3 Differential Comment Toxic Vacuolation (None) Dohle Bodies (None) Platelet Estimate (Normal) Platelet Morphology (Normal) Stomatocytes (None) PT (9.8-11.6) sec INR Ratio APTT (24.3-30.1) sec Thrombin Time Fibrinogen (227-377) mg/dL Lupus Anticoagulant (NOT DETECTED) LA PTT Screen (< OR = 40) seconds dRVVT Screen (< OR = 45) seconds LA dRVVT Confirm (NEGATIVE) dRVVT Mix (CORRECTED) Hexagonal Phase Confirm APC Resistance (> OR = 2.1) ratio Antithrombin III Activ (80-120) % normal Factor VIII Activity (50-180) % normal Puncture Site Patient Temperature O2 Saturation (90-100) % ABG pH (7.380-7.420) ABG pCO2 (38-42) mmHg ABG pO2 (61-120) mmHG ABG HCO3 (22-26) mmol/L ABG O2 Content (12.0-20.0) Vol % ABG Base Excess (-2-2) mmol/L ABG Methemoglobin (0-2) % Hemal Test Hemoglobin (12.0-16.0) G/DL Carboxyhemoglobin (0-4) % O2 Delivery Device Vent Setting Inspired O2 % Critical Value Sodium 139 (136-145) meq/L Potassium 2.9 L* (3.5-5.1) meq/L Chloride 104 (98-107) meq/L Carbon Dioxide 25.3 (21.0-32.0) meq/L Anion Gap 10 (5-15) meq/L BUN 7 (7-18) mg/dL Creatinine 0.61 (0.60-1.30) mg/dL Estimated GFR Greater than 89 (>89) mL/min POC Glucose 100 (68-110) mg/dl Random Glucose 160 H (74-106) mg/dL Calcium 7.3 L* (8.5-10.1) mg/dL Prot Corrected Calcium 7.9 L (8.5-10.1) mg/dL Phosphorus 2.0 L (2.5-4.9) mg/dL Magnesium 2.2 (1.5-2.5) mg/dL Total Bilirubin 1.7 H (0.2-1.0) mg/dL AST 111 H (15-37) U/L ALT 104 H (12-78) U/L Alkaline Phosphatase 54 (45-117) U/L Total Creatine Kinase (39-308) U/L CK-MB (CK-2) (0.5-3.6) ng/mL CK-MB (CK-2) % (0.0-4.0) % Troponin I (0.02-0.05) ng/mL B-Natriuretic Peptide (0-100) pg/mL Total Protein 6.0 L (6.4-8.2) g/dL Albumin 2.2 L (3.4-5.0) g/dL Lipase (73-393) U/L Homocysteine Cardiovas (<11.4) umol/L Urine Color (Yellw/Straw) Urine Clarity (Clear) Urine pH (5.0-8.5) Ur Specific [place] (1.002-1.035) Urine Protein (Neg-Trace) mg/dL Urine Glucose (UA) (Negative) mg/dL Urine Ketones (Negative) mg/dL Urine Occult Blood (Negative) Urine Nitrate (Negative) Urine Bilirubin (Negative) Urine Urobilinogen (Less than 2) mg/dL Ur Leukocyte Esterase (Negative) Urine RBC (0-3) /hpf Urine WBC (0-5) /hpf Ur Squamous Epith Cells (0-5) /hpf Urine Bacteria (None) /hpf Urine Mucus (Occasional) /lpf Micro UA Comment Ur Microscopic Review Urine Culture Comments Nasal Screen MRSA (PCR) (Negative) Vancomycin Trough (5.0-10.0) mcg/mL Urine Opiates Screen (Neg) Ur Barbiturates Screen (Neg) Ur Amphetamines Screen (Neg) U Benzodiazepines Scrn (Neg) Urine Cocaine Screen (Neg) U Cannabinoids Screen (Neg) Serum Alcohol (0-5) mg/dL Hepatitis A IgM Ab (Nonreactive) Hep Bs Antigen (Nonreactive) Hep B Core IgM Ab (Nonreactive) Hep C IgG Ab (Nonreactive) MTHFR Mutation Detect Prothrombin [id number] Mut 11/28/17 11/28/17 11/28/17 Range/Units 04:08 05:05 05:58 WBC (4.0-11.0) th/mm3 RBC (4.50-5.90) mil/mm3 Hgb (13.0-17.0) gm/dL Hct (39.0-51.0) % MCV (80.0-100.0) fL MCH (27.0-34.0) pg MCHC (32.0-36.0) % RDW (11.6-17.2) % Plt Count (150-450) th/mm3 MPV (7.0-11.0) fL Prelim Diff (Auto) Neut % (Auto) (16.0-70.0) % Lymph % (Auto) (9.0-44.0) % Atkinson % (Auto) (0.0-8.0) % Eos % (Auto) (0.0-4.0) % Baso % (Auto) (0.0-2.0) % Neut # (Auto) (1.8-7.7) th/mm3 Lymph # (Auto) (1.0-4.8) th/mm3 Atkinson # (Auto) (0.0-0.9) th/mm3 Eos # (Auto) (0.0-0.4) th/mm3 Baso # (Auto) (0.0-0.2) th/mm3 WBC Differential Seg Neuts % (Manual) (16-70) % Band Neuts % (Manual) (0-6) % Lymphocytes % (Manual) (9-44) % Monocytes % (Manual) (0-8) % Myelocytes % (Man) (0-0) % Abs Neuts (Manual) (1.8-7.7) th/mm3 Differential Comment Toxic Vacuolation (None) Dohle Bodies (None) Platelet Estimate (Normal) Platelet Morphology (Normal) Stomatocytes (None) PT 9.5 L (9.8-11.6) sec INR 0.9 Ratio APTT 36.4 H D (24.3-30.1) sec Thrombin Time Fibrinogen (227-377) mg/dL Lupus Anticoagulant (NOT DETECTED) LA PTT Screen (< OR = 40) seconds dRVVT Screen (< OR = 45) seconds LA dRVVT Confirm (NEGATIVE) dRVVT Mix (CORRECTED) Hexagonal Phase Confirm APC Resistance (> OR = 2.1) ratio Antithrombin III Activ (80-120) % normal Factor VIII Activity (50-180) % normal Puncture Site Antonia Patient Temperature 98.6 O2 Saturation 97 (90-100) % ABG pH 7.47 H (7.380-7.420) ABG pCO2 31 L (38-42) mmHg ABG pO2 160 H (61-120) mmHG ABG HCO3 22 (22-26) mmol/L ABG O2 Content 16.3 (12.0-20.0) Vol % ABG Base Excess -1.1 (-2-2) mmol/L ABG Methemoglobin 1.6 (0-2) % Hemal Test Hemoglobin 11.8 L (12.0-16.0) G/DL Carboxyhemoglobin 1.0 (0-4) % O2 Delivery Device Vent Vent Setting See comments Inspired O2 45 % Critical Value No Sodium (136-145) meq/L Potassium (3.5-5.1) meq/L Chloride (98-107) meq/L Carbon Dioxide (21.0-32.0) meq/L Anion Gap (5-15) meq/L BUN (7-18) mg/dL Creatinine (0.60-1.30) mg/dL Estimated GFR (>89) mL/min POC Glucose 140 H (68-110) mg/dl Random Glucose (74-106) mg/dL Calcium (8.5-10.1) mg/dL Prot Corrected Calcium (8.5-10.1) mg/dL Phosphorus (2.5-4.9) mg/dL Magnesium (1.5-2.5) mg/dL Total Bilirubin (0.2-1.0) mg/dL AST (15-37) U/L ALT (12-78) U/L Alkaline Phosphatase (45-117) U/L Total Creatine Kinase (39-308) U/L CK-MB (CK-2) (0.5-3.6) ng/mL CK-MB (CK-2) % (0.0-4.0) % Troponin I (0.02-0.05) ng/mL B-Natriuretic Peptide (0-100) pg/mL Total Protein (6.4-8.2) g/dL Albumin (3.4-5.0) g/dL Lipase (73-393) U/L Homocysteine Cardiovas (<11.4) umol/L Urine Color (Yellw/Straw) Urine Clarity (Clear) Urine pH (5.0-8.5) Ur Specific [place] (1.002-1.035) Urine Protein (Neg-Trace) mg/dL Urine Glucose (UA) (Negative) mg/dL Urine Ketones (Negative) mg/dL Urine Occult Blood (Negative) Urine Nitrate (Negative) Urine Bilirubin (Negative) Urine Urobilinogen (Less than 2) mg/dL Ur Leukocyte Esterase (Negative) Urine RBC (0-3) /hpf Urine WBC (0-5) /hpf Ur Squamous Epith Cells (0-5) /hpf Urine Bacteria (None) /hpf Urine Mucus (Occasional) /lpf Micro UA Comment Ur Microscopic Review Urine Culture Comments Nasal Screen MRSA (PCR) (Negative) Vancomycin Trough (5.0-10.0) mcg/mL Urine Opiates Screen (Neg) Ur Barbiturates Screen (Neg) Ur Amphetamines Screen (Neg) U Benzodiazepines Scrn (Neg) Urine Cocaine Screen (Neg) U Cannabinoids Screen (Neg) Serum Alcohol (0-5) mg/dL Hepatitis A IgM Ab (Nonreactive) Hep Bs Antigen (Nonreactive) Hep B Core IgM Ab (Nonreactive) Hep C IgG Ab (Nonreactive) MTHFR Mutation Detect Prothrombin [id number] Mut 11/28/17 11/28/17 11/28/17 Range/Units 11:45 11:55 13:30 WBC (4.0-11.0) th/mm3 RBC (4.50-5.90) mil/mm3 Hgb (13.0-17.0) gm/dL Hct (39.0-51.0) % MCV (80.0-100.0) fL MCH (27.0-34.0) pg MCHC (32.0-36.0) % RDW (11.6-17.2) % Plt Count (150-450) th/mm3 MPV (7.0-11.0) fL Prelim Diff (Auto) Neut % (Auto) (16.0-70.0) % Lymph % (Auto) (9.0-44.0) % Atkinson % (Auto) (0.0-8.0) % Eos % (Auto) (0.0-4.0) % Baso % (Auto) (0.0-2.0) % Neut # (Auto) (1.8-7.7) th/mm3 Lymph # (Auto) (1.0-4.8) th/mm3 Atkinson # (Auto) (0.0-0.9) th/mm3 Eos # (Auto) (0.0-0.4) th/mm3 Baso # (Auto) (0.0-0.2) th/mm3 WBC Differential Seg Neuts % (Manual) (16-70) % Band Neuts % (Manual) (0-6) % Lymphocytes % (Manual) (9-44) % Monocytes % (Manual) (0-8) % Myelocytes % (Man) (0-0) % Abs Neuts (Manual) (1.8-7.7) th/mm3 Differential Comment Toxic Vacuolation (None) Dohle Bodies (None) Platelet Estimate (Normal) Platelet Morphology (Normal) Stomatocytes (None) PT (9.8-11.6) sec INR Ratio APTT 32.7 H (24.3-30.1) sec Thrombin Time Fibrinogen (227-377) mg/dL Lupus Anticoagulant (NOT DETECTED) LA PTT Screen (< OR = 40) seconds dRVVT Screen (< OR = 45) seconds LA dRVVT Confirm (NEGATIVE) dRVVT Mix (CORRECTED) Hexagonal Phase Confirm APC Resistance (> OR = 2.1) ratio Antithrombin III Activ (80-120) % normal Factor VIII Activity (50-180) % normal Puncture Site Patient Temperature O2 Saturation (90-100) % ABG pH (7.380-7.420) ABG pCO2 (38-42) mmHg ABG pO2 (61-120) mmHG ABG HCO3 (22-26) mmol/L ABG O2 Content (12.0-20.0) Vol % ABG Base Excess (-2-2) mmol/L ABG Methemoglobin (0-2) % Hemal Test Hemoglobin (12.0-16.0) G/DL Carboxyhemoglobin (0-4) % O2 Delivery Device Vent Setting Inspired O2 % Critical Value Sodium (136-145) meq/L Potassium (3.5-5.1) meq/L Chloride (98-107) meq/L Carbon Dioxide (21.0-32.0) meq/L Anion Gap (5-15) meq/L BUN (7-18) mg/dL Creatinine (0.60-1.30) mg/dL Estimated GFR (>89) mL/min POC Glucose 140 H (68-110) mg/dl Random Glucose (74-106) mg/dL Calcium (8.5-10.1) mg/dL Prot Corrected Calcium (8.5-10.1) mg/dL Phosphorus (2.5-4.9) mg/dL Magnesium (1.5-2.5) mg/dL Total Bilirubin (0.2-1.0) mg/dL AST (15-37) U/L ALT (12-78) U/L Alkaline Phosphatase (45-117) U/L Total Creatine Kinase (39-308) U/L CK-MB (CK-2) (0.5-3.6) ng/mL CK-MB (CK-2) % (0.0-4.0) % Troponin I (0.02-0.05) ng/mL B-Natriuretic Peptide (0-100) pg/mL Total Protein (6.4-8.2) g/dL Albumin (3.4-5.0) g/dL Lipase (73-393) U/L Homocysteine Cardiovas (<11.4) umol/L Urine Color (Yellw/Straw) Urine Clarity (Clear) Urine pH (5.0-8.5) Ur Specific [place] (1.002-1.035) Urine Protein (Neg-Trace) mg/dL Urine Glucose (UA) (Negative) mg/dL Urine Ketones (Negative) mg/dL Urine Occult Blood (Negative) Urine Nitrate (Negative) Urine Bilirubin (Negative) Urine Urobilinogen (Less than 2) mg/dL Ur Leukocyte Esterase (Negative) Urine RBC (0-3) /hpf Urine WBC (0-5) /hpf Ur Squamous Epith Cells (0-5) /hpf Urine Bacteria (None) /hpf Urine Mucus (Occasional) /lpf Micro UA Comment Ur Microscopic Review Urine Culture Comments Nasal Screen MRSA (PCR) (Negative) Vancomycin Trough 11.8 H (5.0-10.0) mcg/mL Urine Opiates Screen (Neg) Ur Barbiturates Screen (Neg) Ur Amphetamines Screen (Neg) U Benzodiazepines Scrn (Neg) Urine Cocaine Screen (Neg) U Cannabinoids Screen (Neg) Serum Alcohol (0-5) mg/dL Hepatitis A IgM Ab (Nonreactive) Hep Bs Antigen (Nonreactive) Hep B Core IgM Ab (Nonreactive) Hep C IgG Ab (Nonreactive) MTHFR Mutation Detect Prothrombin [id number] Mut 11/28/17 11/28/17 11/28/17 Range/Units 16:50 17:54 23:59 WBC (4.0-11.0) th/mm3 RBC (4.50-5.90) mil/mm3 Hgb (13.0-17.0) gm/dL Hct (39.0-51.0) % MCV (80.0-100.0) fL MCH (27.0-34.0) pg MCHC (32.0-36.0) % RDW (11.6-17.2) % Plt Count (150-450) th/mm3 MPV (7.0-11.0) fL Prelim Diff (Auto) Neut % (Auto) (16.0-70.0) % Lymph % (Auto) (9.0-44.0) % Atkinson % (Auto) (0.0-8.0) % Eos % (Auto) (0.0-4.0) % Baso % (Auto) (0.0-2.0) % Neut # (Auto) (1.8-7.7) th/mm3 Lymph # (Auto) (1.0-4.8) th/mm3 Atkinson # (Auto) (0.0-0.9) th/mm3 Eos # (Auto) (0.0-0.4) th/mm3 Baso # (Auto) (0.0-0.2) th/mm3 WBC Differential Seg Neuts % (Manual) (16-70) % Band Neuts % (Manual) (0-6) % Lymphocytes % (Manual) (9-44) % Monocytes % (Manual) (0-8) % Myelocytes % (Man) (0-0) % Abs Neuts (Manual) (1.8-7.7) th/mm3 Differential Comment Toxic Vacuolation (None) Dohle Bodies (None) Platelet Estimate (Normal) Platelet Morphology (Normal) Stomatocytes (None) PT (9.8-11.6) sec INR Ratio APTT (24.3-30.1) sec Thrombin Time Fibrinogen (227-377) mg/dL Lupus Anticoagulant (NOT DETECTED) LA PTT Screen (< OR = 40) seconds dRVVT Screen (< OR = 45) seconds LA dRVVT Confirm (NEGATIVE) dRVVT Mix (CORRECTED) Hexagonal Phase Confirm APC Resistance (> OR = 2.1) ratio Antithrombin III Activ (80-120) % normal Factor VIII Activity (50-180) % normal Puncture Site Patient Temperature O2 Saturation (90-100) % ABG pH (7.380-7.420) ABG pCO2 (38-42) mmHg ABG pO2 (61-120) mmHG ABG HCO3 (22-26) mmol/L ABG O2 Content (12.0-20.0) Vol % ABG Base Excess (-2-2) mmol/L ABG Methemoglobin (0-2) % Hemal Test Hemoglobin (12.0-16.0) G/DL Carboxyhemoglobin (0-4) % O2 Delivery Device Vent Setting Inspired O2 % Critical Value Sodium (136-145) meq/L Potassium 3.3 L (3.5-5.1) meq/L Chloride (98-107) meq/L Carbon Dioxide (21.0-32.0) meq/L Anion Gap (5-15) meq/L BUN (7-18) mg/dL Creatinine (0.60-1.30) mg/dL Estimated GFR (>89) mL/min POC Glucose 125 H 135 H (68-110) mg/dl Random Glucose (74-106) mg/dL Calcium (8.5-10.1) mg/dL Prot Corrected Calcium (8.5-10.1) mg/dL Phosphorus 2.5 (2.5-4.9) mg/dL Magnesium (1.5-2.5) mg/dL Total Bilirubin (0.2-1.0) mg/dL AST (15-37) U/L ALT (12-78) U/L Alkaline Phosphatase (45-117) U/L Total Creatine Kinase (39-308) U/L CK-MB (CK-2) (0.5-3.6) ng/mL CK-MB (CK-2) % (0.0-4.0) % Troponin I (0.02-0.05) ng/mL B-Natriuretic Peptide (0-100) pg/mL Total Protein (6.4-8.2) g/dL Albumin (3.4-5.0) g/dL Lipase (73-393) U/L Homocysteine Cardiovas (<11.4) umol/L Urine Color (Yellw/Straw) Urine Clarity (Clear) Urine pH (5.0-8.5) Ur Specific Forest (1.002-1.035) Urine Protein (Neg-Trace) mg/dL Urine Glucose (UA) (Negative) mg/dL Urine Ketones (Negative) mg/dL Urine Occult Blood (Negative) Urine Nitrate (Negative) Urine Bilirubin (Negative) Urine Urobilinogen (Less than 2) mg/dL Ur Leukocyte Esterase (Negative) Urine RBC (0-3) /hpf Urine WBC (0-5) /hpf Ur Squamous Epith Cells (0-5) /hpf Urine Bacteria (None) /hpf Urine Mucus (Occasional) /lpf Micro UA Comment Ur Microscopic Review Urine Culture Comments Nasal Screen MRSA (PCR) (Negative) Vancomycin Trough (5.0-10.0) mcg/mL Urine Opiates Screen (Neg) Ur Barbiturates Screen (Neg) Ur Amphetamines Screen (Neg) U Benzodiazepines Scrn (Neg) Urine Cocaine Screen (Neg) U Cannabinoids Screen (Neg) Serum Alcohol (0-5) mg/dL Hepatitis A IgM Ab (Nonreactive) Hep Bs Antigen (Nonreactive) Hep B Core IgM Ab (Nonreactive) Hep C IgG Ab (Nonreactive) MTHFR Mutation Detect Prothrombin [id number] Mut 11/29/17 11/29/17 11/29/17 Range/Units 02:23 02:36 05:40 WBC 9.9 (4.0-11.0) th/mm3 RBC 4.48 L (4.50-5.90) mil/mm3 Hgb 13.3 (13.0-17.0) gm/dL Hct 39.5 (39.0-51.0) % MCV 88.3 (80.0-100.0) fL MCH 29.6 (27.0-34.0) pg MCHC 33.6 (32.0-36.0) % RDW 15.3 (11.6-17.2) % Plt Count 205 D (150-450) th/mm3 MPV 9.7 (7.0-11.0) fL Prelim Diff (Auto) Neut % (Auto) (16.0-70.0) % Lymph % (Auto) (9.0-44.0) % Atkinson % (Auto) (0.0-8.0) % Eos % (Auto) (0.0-4.0) % Baso % (Auto) (0.0-2.0) % Neut # (Auto) (1.8-7.7) th/mm3 Lymph # (Auto) (1.0-4.8) th/mm3 Atkinson # (Auto) (0.0-0.9) th/mm3 Eos # (Auto) (0.0-0.4) th/mm3 Baso # (Auto) (0.0-0.2) th/mm3 WBC Differential Seg Neuts % (Manual) (16-70) % Band Neuts % (Manual) (0-6) % Lymphocytes % (Manual) (9-44) % Monocytes % (Manual) (0-8) % Myelocytes % (Man) (0-0) % Abs Neuts (Manual) (1.8-7.7) th/mm3 Differential Comment Toxic Vacuolation (None) Dohle Bodies (None) Platelet Estimate (Normal) Platelet Morphology (Normal) Stomatocytes (None) PT (9.8-11.6) sec INR Ratio APTT 31.3 H (24.3-30.1) sec Thrombin Time Fibrinogen (227-377) mg/dL Lupus Anticoagulant (NOT DETECTED) LA PTT Screen (< OR = 40) seconds dRVVT Screen (< OR = 45) seconds LA dRVVT Confirm (NEGATIVE) dRVVT Mix (CORRECTED) Hexagonal Phase Confirm APC Resistance (> OR = 2.1) ratio Antithrombin III Activ (80-120) % normal Factor VIII Activity (50-180) % normal Puncture Site Patient Temperature O2 Saturation (90-100) % ABG pH (7.380-7.420) ABG pCO2 (38-42) mmHg ABG pO2 (61-120) mmHG ABG HCO3 (22-26) mmol/L ABG O2 Content (12.0-20.0) Vol % ABG Base Excess (-2-2) mmol/L ABG Methemoglobin (0-2) % Hemal Test Hemoglobin (12.0-16.0) G/DL Carboxyhemoglobin (0-4) % O2 Delivery Device Vent Setting Inspired O2 % Critical Value Sodium (136-145) meq/L Potassium 3.4 L (3.5-5.1) meq/L Chloride (98-107) meq/L Carbon Dioxide (21.0-32.0) meq/L Anion Gap (5-15) meq/L BUN (7-18) mg/dL Creatinine (0.60-1.30) mg/dL Estimated GFR (>89) mL/min POC Glucose (68-110) mg/dl Random Glucose (74-106) mg/dL Calcium (8.5-10.1) mg/dL Prot Corrected Calcium (8.5-10.1) mg/dL Phosphorus (2.5-4.9) mg/dL Magnesium (1.5-2.5) mg/dL Total Bilirubin (0.2-1.0) mg/dL AST (15-37) U/L ALT (12-78) U/L Alkaline Phosphatase (45-117) U/L Total Creatine Kinase (39-308) U/L CK-MB (CK-2) (0.5-3.6) ng/mL CK-MB (CK-2) % (0.0-4.0) % Troponin I (0.02-0.05) ng/mL B-Natriuretic Peptide (0-100) pg/mL Total Protein (6.4-8.2) g/dL Albumin (3.4-5.0) g/dL Lipase (73-393) U/L Homocysteine Cardiovas (<11.4) umol/L Urine Color (Yellw/Straw) Urine Clarity (Clear) Urine pH (5.0-8.5) Ur Specific Forest (1.002-1.035) Urine Protein (Neg-Trace) mg/dL Urine Glucose (UA) (Negative) mg/dL Urine Ketones (Negative) mg/dL Urine Occult Blood (Negative) Urine Nitrate (Negative) Urine Bilirubin (Negative) Urine Urobilinogen (Less than 2) mg/dL Ur Leukocyte Esterase (Negative) Urine RBC (0-3) /hpf Urine WBC (0-5) /hpf Ur Squamous Epith Cells (0-5) /hpf Urine Bacteria (None) /hpf Urine Mucus (Occasional) /lpf Micro UA Comment Ur Microscopic Review Urine Culture Comments Nasal Screen MRSA (PCR) (Negative) Vancomycin Trough (5.0-10.0) mcg/mL Urine Opiates Screen (Neg) Ur Barbiturates Screen (Neg) Ur Amphetamines Screen (Neg) U Benzodiazepines Scrn (Neg) Urine Cocaine Screen (Neg) U Cannabinoids Screen (Neg) Serum Alcohol (0-5) mg/dL Hepatitis A IgM Ab (Nonreactive) Hep Bs Antigen (Nonreactive) Hep B Core IgM Ab (Nonreactive) Hep C IgG Ab (Nonreactive) MTHFR Mutation Detect Prothrombin [id number] Mut 11/29/17 Range/Units 05:40 WBC (4.0-11.0) th/mm3 RBC (4.50-5.90) mil/mm3 Hgb (13.0-17.0) gm/dL Hct (39.0-51.0) % MCV (80.0-100.0) fL MCH (27.0-34.0) pg MCHC (32.0-36.0) % RDW (11.6-17.2) % Plt Count (150-450) th/mm3 MPV (7.0-11.0) fL Prelim Diff (Auto) Neut % (Auto) (16.0-70.0) % Lymph % (Auto) (9.0-44.0) % Atkinson % (Auto) (0.0-8.0) % Eos % (Auto) (0.0-4.0) % Baso % (Auto) (0.0-2.0) % Neut # (Auto) (1.8-7.7) th/mm3 Lymph # (Auto) (1.0-4.8) th/mm3 Atkinson # (Auto) (0.0-0.9) th/mm3 Eos # (Auto) (0.0-0.4) th/mm3 Baso # (Auto) (0.0-0.2) th/mm3 WBC Differential Seg Neuts % (Manual) (16-70) % Band Neuts % (Manual) (0-6) % Lymphocytes % (Manual) (9-44) % Monocytes % (Manual) (0-8) % Myelocytes % (Man) (0-0) % Abs Neuts (Manual) (1.8-7.7) th/mm3 Differential Comment Toxic Vacuolation (None) Dohle Bodies (None) Platelet Estimate (Normal) Platelet Morphology (Normal) Stomatocytes (None) PT 9.3 L (9.8-11.6) sec INR 0.9 Ratio APTT (24.3-30.1) sec Thrombin Time Fibrinogen (227-377) mg/dL Lupus Anticoagulant (NOT DETECTED) LA PTT Screen (< OR = 40) seconds dRVVT Screen (< OR = 45) seconds LA dRVVT Confirm (NEGATIVE) dRVVT Mix (CORRECTED) Hexagonal Phase Confirm APC Resistance (> OR = 2.1) ratio Antithrombin III Activ (80-120) % normal Factor VIII Activity (50-180) % normal Puncture Site Patient Temperature O2 Saturation (90-100) % ABG pH (7.380-7.420) ABG pCO2 (38-42) mmHg ABG pO2 (61-120) mmHG ABG HCO3 (22-26) mmol/L ABG O2 Content (12.0-20.0) Vol % ABG Base Excess (-2-2) mmol/L ABG Methemoglobin (0-2) % Hemal Test Hemoglobin (12.0-16.0) G/DL Carboxyhemoglobin (0-4) % O2 Delivery Device Vent Setting Inspired O2 % Critical Value Sodium (136-145) meq/L Potassium (3.5-5.1) meq/L Chloride (98-107) meq/L Carbon Dioxide (21.0-32.0) meq/L Anion Gap (5-15) meq/L BUN (7-18) mg/dL Creatinine (0.60-1.30) mg/dL Estimated GFR (>89) mL/min POC Glucose (68-110) mg/dl Random Glucose (74-106) mg/dL Calcium (8.5-10.1) mg/dL Prot Corrected Calcium (8.5-10.1) mg/dL Phosphorus (2.5-4.9) mg/dL Magnesium (1.5-2.5) mg/dL Total Bilirubin (0.2-1.0) mg/dL AST (15-37) U/L ALT (12-78) U/L Alkaline Phosphatase (45-117) U/L Total Creatine Kinase (39-308) U/L CK-MB (CK-2) (0.5-3.6) ng/mL CK-MB (CK-2) % (0.0-4.0) % Troponin I (0.02-0.05) ng/mL B-Natriuretic Peptide (0-100) pg/mL Total Protein (6.4-8.2) g/dL Albumin (3.4-5.0) g/dL Lipase (73-393) U/L Homocysteine Cardiovas (<11.4) umol/L Urine Color (Yellw/Straw) Urine Clarity (Clear) Urine pH (5.0-8.5) Ur Specific Forest (1.002-1.035) Urine Protein (Neg-Trace) mg/dL Urine Glucose (UA) (Negative) mg/dL Urine Ketones (Negative) mg/dL Urine Occult Blood (Negative) Urine Nitrate (Negative) Urine Bilirubin (Negative) Urine Urobilinogen (Less than 2) mg/dL Ur Leukocyte Esterase (Negative) Urine RBC (0-3) /hpf Urine WBC (0-5) /hpf Ur Squamous Epith Cells (0-5) /hpf Urine Bacteria (None) /hpf Urine Mucus (Occasional) /lpf Micro UA Comment Ur Microscopic Review Urine Culture Comments Nasal Screen MRSA (PCR) (Negative) Vancomycin Trough (5.0-10.0) mcg/mL Urine Opiates Screen (Neg) Ur Barbiturates Screen (Neg) Ur Amphetamines Screen (Neg) U Benzodiazepines Scrn (Neg) Urine Cocaine Screen (Neg) U Cannabinoids Screen (Neg) Serum Alcohol (0-5) mg/dL Hepatitis A IgM Ab (Nonreactive) Hep Bs Antigen (Nonreactive) Hep B Core IgM Ab (Nonreactive) Hep C IgG Ab (Nonreactive) MTHFR Mutation Detect Prothrombin [id number] Mut Imaging Data Radiologist's impression: Liver Ultrasound 11/24/17 00:00 CONCLUSION: 1. Hepatomegaly with steatosis. 2. Spleen measures at the upper limits for normal in size. Chest X-Ray 11/24/17 07:25 CONCLUSION: Cardiac silhouette size is at the upper limits for normal. Otherwise, no acute finding is identified. Chest X-Ray 11/24/17 10:11 CONCLUSION: 1. Endotracheal tube in appropriate position with tip measuring approximately 3.7 cm from the lucy. 2. Underinflated examination with suspected subsegmental atelectasis at the bases. Chest CTA 11/26/17 00:00 CONCLUSION: 1. Small volume right sided acute pulmonary emboli. 2. Bibasilar pulmonary consolidations. Chest X-Ray 11/26/17 00:00 CONCLUSION: 1. Stable ETT and NGT. 2. Persistent patchy airspace consolidation throughout the right lung. 3. Improved aeration in the left lower lung zone. Chest X-Ray 11/26/17 00:00 CONCLUSION: 1. No pneumothorax status post placement of right internal jugular central line which has its tip in the superior vena cava. 2. No significant change in the bilateral pulmonary infiltrates (right worse than left). Chest X-Ray 11/26/17 03:21 CONCLUSION: 1. Stable ETT and NGT. 2. Developing right-sided pleural effusion and associated airspace disease. 3. Persistent left lung base airspace disease. Head CT 11/27/17 05:00 CONCLUSION: 1. No acute intracranial abnormality. 2. Paranasal sinus mucosal disease. . Chest X-Ray 11/27/17 07:16 CONCLUSION: Support apparatus in good position. Minimal interval improvement with less interstitial changes. Discharge Plan Discharge Disposition Patient Disposition: 30 Still Patient Physicians Team ED Provider: Mike Pablo Primary Care Provider: Flakita Barroso Attending Provider: Gt Nava Status ED Status: Left Department Discharge Information Discharge Date/Time: 11/24/17 08:15
[2017-11-24 06:08] LABS: Baso % (Auto) 0.5 % (0.0-2.0); Eos # (Auto) 0.1 th/mm3 (0.0-0.4); Eos % (Auto) 0.7 % (0.0-4.0); Hematocrit 49.6 % (39.0-51.0); Lymph % (Auto) 11.1 % (9.0-44.0); Mean Corpuscular HGB Conc 34.3 % (32.0-36.0); Mean Corpuscular Hemoglobin 30.3 pg (27.0-34.0); Mean Corpuscular Volume 88.3 fL (80.0-100.0); Mean Platelet Volume 9.2 fL (7.0-11.0); Mono # (Auto) 0.9 th/mm3 (0.0-0.9); Mono % (Auto) 10.7 % (0.0-8.0); Neut # (Auto) 6.7 th/mm3 (1.8-7.7); Platelet Count 184 th/mm3 (150-450); Red Blood Count 5.61 mil/mm3 (4.50-5.90); Red Cell Distribution Width 15.2 % (11.6-17.2); White Blood Count 8.7 th/mm3 (4.0-11.0)
[2017-11-24 06:29] LABS: Alanine Aminotransferase 158 U/L (12-78); Albumin 4.2 g/dL (3.4-5.0); Alkaline Phosphatase 65 U/L (45-117); Anion Gap 13 meq/L (5-15); Aspartate Aminotransferase 154 U/L (15-37); Blood Urea Nitrogen 8 mg/dL (7-18); Calcium 9.1 mg/dL (8.5-10.1); Carbon Dioxide 22.7 meq/L (21.0-32.0); Chloride 97 meq/L (98-107); Creatine Kinase 450 U/L (39-308); Glomerular Filtration Rate 85 mL/min (>89); Glucose,Random 119 mg/dL (74-106); Lipase 131 U/L (73-393); Sodium 133 meq/L (136-145); Total Protein 8.3 g/dL (6.4-8.2)
[2017-11-24 06:31] LABS: Potassium 3.2 meq/L (3.5-5.1)
[2017-11-24] MEDS ORDERED: Haloperidol Inj 5 MG/ML Ampul IV.PUSH ONE (06:55)
[2017-11-24 06:57] LABS: CKMB Percent 0.5 % (0.0-4.0); Creatine Kinase MB 2.1 ng/mL (0.5-3.6)
[2017-11-24] MEDS ORDERED: Ketamine Inj 50 MG/5 ML Syringe IV.PUSH ONE (07:01)
[2017-11-24] MEDS ORDERED: Multivitamin Inj 10 ML, Thiamine Inj 100 MG, Folic Acid Inj 1 MG in Sodium Chlor 0.9% I... IV.SIG ONE (07:13)
[2017-11-24] MEDS ORDERED: Sodium Phosphate Inj 30 MMOL in Sodium Chlor 0.9% Inj 250 ML IV.SIG PRN (07:32)
[2017-11-24] MEDS ORDERED: Potassium Chloride 25 MEQ Effervescent Tablet PO PRN (07:32)
[2017-11-24] MEDS ORDERED: Potassium Chlor 40 mEq Premix 40 MEQ/100 ML PIGGYBACK IV.SIG PRN (07:32)
[2017-11-24] MEDS ORDERED: Dextrose 50% in Water 50 ML Vial IV.PUSH PRN (07:32)
[2017-11-24] MEDS ORDERED: Magnesium Sulfate Inj 2 GM in Sodium Chlor 0.9% Inj 96 ML IV.SIG PRN (07:32)
[2017-11-24] MEDS ORDERED: Potassium Phosphate 500 MG Soluble Tablet PO PRN ×2 (07:32)
[2017-11-24] MEDS ORDERED: Magnesium Sulfate Inj 4 GM in Sodium Chlor 0.9% Inj 92 ML IV.SIG PRN (07:32)
[2017-11-24] MEDS ORDERED: Magnesium Oxide 400 MG Tablet PO PRN (07:32)
[2017-11-24] MEDS ORDERED: Sod Chloride 0.9% Inj 1,000 ML IV.SIG SCH (07:45)
--- NOTE | 2017-11-24 07:55 | XR ---
EXAM DATE: 11/24/2017 7:25 AM EDT AGE/SEX: 36 years / Male INDICATIONS: Hypertension. CLINICAL DATA: This is the patient's initial encounter. Patient reports that signs and symptoms have been present for 1 day and indicates a pain score of Nonresponsive. MEDICAL/SURGICAL HISTORY: Non-responsive. Non-responsive. COMPARISON: No prior exams available for comparison. FINDINGS: Portable AP view of the chest demonstrates cardiac silhouette size at the upper limits for normal. No effusion, consolidation, or pneumothorax is appreciated. There is possible atelectasis in the left l ower lobe. The bones and soft tissues demonstrate no acute finding. EKG lines overlie the patient. CONCLUSION: Cardiac silhouette size is at the upper limits for normal. Otherwise, no acute finding is identified. Electronically signed by: Higinio Gaitan MD 11/24/2017 7:54 AM EDT
[2017-11-24] MEDS: Dextrose 5%/NaCl 0.9% Inj 1,000 ML IV.CONT SCH ×2 (08:04→19:41)
[2017-11-24 08:26] LABS: Bilirubin,Urine Negative (Negative); Clarity,Urine Clear (Clear); Color,Urine Yellow (Yellw/Straw); Glucose,Urine (UA) Negative (Negative); Leukocyte Esterase,Urine Negative (Negative); Nitrite,Urine Negative (Negative); Specific Gravity,Urine 1.003 (1.002-1.035)
[2017-11-24] MEDS: Haloperidol Inj 5 MG/ML Ampul IV.PUSH PRN ×2 (08:33→21:25)
[2017-11-24] MEDS ORDERED: Dexmedetomidine Inj 200 MCG in Sodium Chlor 0.9% Inj 48 ML IV.CONT PRN (08:38)
[2017-11-24 08:48] LABS: Amphetamine Screen,Urine Neg (Neg); Barbiturate Screen,Urine Neg (Neg); Cannabinoid Screen,Urine Neg (Neg); Cocaine Screen,Urine Neg (Neg)
[2017-11-24 09:08] LABS: Opiate Screen,Urine Neg (Neg)
--- NOTE | 2017-11-24 09:13 | US ---
EXAM DATE: 11/24/2017 12:00 AM EDT AGE/SEX: 36 years / Male INDICATIONS: Elevated liver function. CLINICAL DATA: This is the patient's initial encounter. Patient reports that signs and symptoms have been present for 1 day and indicates a pain score of Nonresponsive. MEDICAL/SURGICAL HISTORY: . ETOH. None. COMPARISON: No prior exams available for comparison. MEASUREMENTS: Liver:__ 19.9 cm. Common Bile Duct:__ 3mm. Right Kidney:__ 10.2 x 5.3 x 5.7 cm. FINDINGS: Liver: Increased echotexture without focal lesion or ductal dilation. Portal Vein: Hepatopedal flow seen in portal vein. Common Duct: No intraluminal mass or stone visualized. Gallbladder: Demonstrates no wall thickening or pericholecystic fluid. No stones visualized. Pancreas: The visualized portions are within normal limits Right Kidney: Normal echotexture and cortical thickness. No mass or hydronephrosis. Other: None. CONCLUSION: 1. Hepatomegaly with steatosis. 2. Spleen measures at the upper limits for normal in size. Electronically signed by: Higinio Gaitan MD 11/24/2017 9:11 AM EDT
--- NOTE | 2017-11-24 09:22 | MH ---
cc: Gt Nava MD DATE OF ADMISSION: 11/24/2017 HISTORY OF PRESENT ILLNESS: The patient is a 36-year-old male with a history of ETOH abuse, who was at a [facility] for alcohol detoxification, became confused, hallucinating and possibly going into alcohol withdrawal. [facility] found him tachycardic, hypertensive. In the ER, he was given Ativan 10 mg total, Benadryl 50 mg and ketamine. His laboratory data is significant for elevated liver enzymes with AST 154, ALT 158 and total bilirubin 1.8. Urine drug screen is pending and his serum alcohol level is less than 3. Chest x-ray in the ED showed no acute findings identified. When seen, the patient is tachycardic with heart rate in the 120s, hypertensive with blood pressure 156/85. He is on room air oxygen with a saturation of 98-100%. History was obtained from reviewing medical records, as the patient is a poor historian due to his mental status. PAST MEDICAL HISTORY: Significant for ETOH abuse. PAST SURGICAL HISTORY: Unknown. ALLERGIES: NO KNOWN DRUG ALLERGIES. SOCIAL HISTORY: Active alcohol use and smoker. FAMILY HISTORY: Noncontributing to present illness. MEDICATIONS AT HOME: Dexlansoprazole. REVIEW OF SYSTEMS: As per HPI. Rest of review of systems is limited. PHYSICAL EXAMINATION: GENERAL: A 36-year-old male lying in bed in no acute distress, hallucinating, tachypneic and tachycardic. VITAL SIGNS: Temperature 98.5, pulse of 124, respiratory rate of 27, blood pressure 156/85, saturation 98-100%. HEENT: Atraumatic, normocephalic. Pupils are equal, round, reactive to light and accommodation. Extraocular muscles intact. Conjunctivae pink, anicteric sclerae. Oral mucosa within normal. NECK: Supple. No JVD, adenopathy or thyromegaly. Trachea in the midline. CARDIOVASCULAR: Tachycardic. Normal S1, S2. No murmurs, rubs or gallops noted. PULMONARY: Bilateral air entry. No rales or wheezing. ABDOMEN: Soft, nontender. No distention. Positive bowel sounds. EXTREMITIES: No cyanosis, clubbing, edema. NEUROLOGIC: No focal sensory deficit. LABORATORY DATA: WBC 8.7, hemoglobin 17, hematocrit 49, platelet count 184. Sodium 133, potassium 3.2, chloride 97, CO2 of 22, BUN 8, creatinine 1, glucose of 119, total bilirubin 1.8, AST 154, ALT 158, total CK 450. RADIOGRAPHIC STUDIES: Chest x-ray showed no acute disease. ASSESSMENT AND PLAN: 1. Altered mental status. 2. ETOH intoxication. 3. Elevated liver enzymes. 4. Hyponatremia. 5. Hypokalemia. RECOMMENDATIONS: 1. Monitor neuro status closely. We will place on a Precedex drip for agitation. Monitor for signs of alcohol withdrawal. Placed on a Clinical Goode Withdrawal Assessment protocol, and will add thiamine, multivitamins and folic acid. 2. Oxygen p.r.n. to maintain sats above 92%. 3. Bronchodilators on a p.r.n. basis and aspiration precautions. Monitor heart rate and blood pressure closely and maintain MAP greater than 65 mmHg. 4. Will give 1 liter bolus of normal saline and place on D5 NS at 84 mL an hour. 5. Monitor renal function, intake and output, and electrolyte replacement per protocol. 6. IV fluids as stated above. 7. Monitor for signs of infection, which include fever and WBC. A cheng culture if spikes a fever. A chest x-ray in ED showed no acute disease. 8. Sliding scale insulin with Accu-Cheks if needed to maintain euglycemia. 9. Keep n.p.o. for now and place on Protonix 40 mg daily for gastrointestinal prophylaxis. 10. Monitor CBC and LFTs. 11. We will check hepatitis profile and ultrasound of the liver. 12. Gastrointestinal prophylaxis with Protonix. 13. Deep vein thrombosis prophylaxis with sequential compression devices and heparin subcutaneous. 14. Further recommendations will be based on hospital course. MD JESSENIA Strange/genoveva , 08:48 AM , 08:58 AM
[2017-11-24] MEDS ORDERED: Etomidate Inj 40 MG/20 ML Vial IV.PUSH ONE (09:43)
[2017-11-24] MEDS ORDERED: Propofol Inj 500 MG/50 ML Vial ONE ×2 (09:44→11:02)
[2017-11-24] MEDS ORDERED: fentaNYL Citrate Inj 100 MCG/2 ML Ampul ONE (09:46)
[2017-11-24] MEDS: Senna/Docusate Sodium 8.6/50 MG Tablet PO SCH ×2 (10:39→20:47)
[2017-11-24] MEDS: Heparin - SQ 10,000 UNITS/ML Vial SQ SCH ×2 (10:40→20:47)
[2017-11-24] MEDS: Folic Acid 1 MG Tablet PO SCH (10:40)
[2017-11-24] MEDS: Pantoprazole Inj 40 MG Vial IV.PUSH SCH (10:40)
[2017-11-24 10:54] LABS: ABG Base Excess -0.9 mmol/L (-2-2); ABG PCO2 40 mmHg (38-42); ABG PO2 114 mmHG (61-120)
--- NOTE | 2017-11-24 11:05 | P.DIET ---
Nutritional Evaluation Type of nutrition evaluation: initial Nutrition consult regarding: Tube Feeding Objective - Diagnosis Acute Delerium Tremens, hallucination - Objective [place] body weight: 81 kg % IBW: 95 Body Weight Used for Calculations: Actual (77.1kg) Energy Needs - Lower Range (kCal/kg): 22 Energy Needs - Upper Range (kCal/kg): 27 Lower Limit kCal/kg (kCals): 1,696 Upper Limit kCal/kg (kCals): 2,082 Lower Limit Protein Factor (Grams per Kg): 1.1 Upper Limit Protein Factor (Grams per Kg): 1.4 Lower Protein Needs (Protein): 85 Upper Protein Needs (Protein): 108 Dietitian Reviewed in Medical Record: Curent medications, Intake & Output, Labs , Medical history, Tube feeding Diet Order: NPO Objective Comments: PMH: Alcohol Abuse Glucose 119 Meds Include: Theragran, Thiamine, folic acid, Haldol, Novolin R, Ativan, Protonix Assessment Assessment: Pt is at nutritional risk r/t diagnosis and need for TF'ing. For TF'ing w/ Glucerna 1.5, Rec a goal rate @ 50ml/hr to offer 1800 kcal, 99g Protein and 911ml free water. Propofol provides some additional kcals(1.1 kcal/ml)when running). Additional Recs r/t Clinical Course. Recommendations: 1. For TF'ing w/Glucerna 1.5, Rec a goal rate @ 50ml/hr 2. Propofol provides some additional kcals(1.1 kcal/ml)when running) 3. Additional Recs r/t Clinical Course Dietitian to Monitor: Lab values, Electrolytes, Liver enzymes, Glucose level, Intake & Output, Tube feeding tolerance, Weight change, Medical course
--- NOTE | 2017-11-24 11:08 | XR ---
EXAM DATE: 11/24/2017 10:11 AM EDT AGE/SEX: 36 years / Male INDICATIONS: Intubation. CLINICAL DATA: This is the patient's initial encounter. Patient reports that signs and symptoms have been present for 1 day and indicates a pain score of Nonresponsive. MEDICAL/SURGICAL HISTORY: None. None. COMPARISON: [facility] – [place], CHEST 1V SINGLE AP, 11/24/2017. . FINDINGS: Portable AP view of the chest demonstrates a normal size cardiac silhouette. Endotracheal tube is pre sent with distal tip measuring approximately 3.7 cm from the lucy. Nasogastric tube courses beyond the GE junction and EKG lines overlie the patient. Lungs are underinflated with mild bibasilar opacit y. No pleural effusion or pneumothorax is identified. Bones and soft tissues demonstrate no acute abn ormality. CONCLUSION: 1. Endotracheal tube in appropriate position with tip measuring approximately 3.7 cm from the lucy . 2. Underinflated examination with suspected subsegmental atelectasis at the bases. Electronically signed by: Higinio Gaitan MD 11/24/2017 11:07 AM EDT
[2017-11-24] MEDS: fentaNYL 10 mcg/mL Premix Drip 2,500 MCG/250 ML BAG IV.SIG PRN ×2 (11:42→19:41)
[2017-11-24 11:45] LABS: Magnesium 1.5 mg/dL (1.5-2.5); Phosphorus 2.7 mg/dL (2.5-4.9)
[2017-11-24 12:16] LABS: Hepatitits B Surface Antigen Nonreactive (Nonreactive)
[2017-11-24 12:27] LABS: Hepatitis A IgM Antibody Nonreactive (Nonreactive)
[2017-11-24] MEDS: Oral Hygiene Kit OROPHARYNG SCH ×2 (12:34→16:04)
[2017-11-24] MEDS: Propofol 1000 mg/100 ml Inj 1,000 MG/100 ML BOTTLE IV.CONT PRN ×4 (12:34→22:05)
[2017-11-24] MEDS: Insulin NovoLIN Regular Correctional Sugar Inj SQ SCH ×2 (12:34→17:52)
[2017-11-24] MEDS: Potassium Chlor 20 mEq Premix 20 MEQ/100 ML PIGGYBACK IV.SIG PRN ×4 (12:35→18:06)
[2017-11-24 12:46] LABS: Amphetamine Screen,Urine Neg (Neg); Barbiturate Screen,Urine Neg (Neg); Cannabinoid Screen,Urine Neg (Neg); Cocaine Screen,Urine Neg (Neg)
[2017-11-24 12:57] LABS: Opiate Screen,Urine Neg (Neg)
[2017-11-24] MEDS: Chlorhexidine 0.12% Oral Kit 15 ML UDC OROPHARYNG SCH (19:42)
[2017-11-25] MEDS: Insulin NovoLIN Regular Correctional Sugar Inj SQ SCH ×4 (00:46→17:28)
[2017-11-25] MEDS: Oral Hygiene Kit OROPHARYNG SCH ×4 (00:46→17:27)
[2017-11-25] MEDS: Propofol 1000 mg/100 ml Inj 1,000 MG/100 ML BOTTLE IV.CONT PRN ×6 (02:05→22:26)
[2017-11-25] MEDS: Haloperidol Inj 5 MG/ML Ampul IV.PUSH PRN (02:30)
[2017-11-25] MEDS: Potassium Chlor 20 mEq Premix 20 MEQ/100 ML PIGGYBACK IV.SIG PRN ×2 (03:07→05:26)
[2017-11-25] MEDS: Chlorhexidine Gluconate 2% 1 Pack (2 Cloths) TOPICAL SCH (03:08)
[2017-11-25] MEDS ORDERED: Chlorhexidine Gluconate 2% 1 Pack (2 Cloths) TOPICAL PRN (04:00)
[2017-11-25 04:59] LABS: Baso # (Auto) 0.1 th/mm3 (0.0-0.2); Baso % (Auto) 1.1 % (0.0-2.0); Eos # (Auto) 0.4 th/mm3 (0.0-0.4); Eos % (Auto) 4.5 % (0.0-4.0); Hematocrit 43.8 % (39.0-51.0); Hemoglobin 14.8 gm/dL (13.0-17.0); Lymph # (Auto) 1.3 th/mm3 (1.0-4.8); Mean Corpuscular HGB Conc 33.7 % (32.0-36.0); Mean Corpuscular Hemoglobin 30.1 pg (27.0-34.0); Mean Corpuscular Volume 89.2 fL (80.0-100.0); Mean Platelet Volume 9.6 fL (7.0-11.0); Mono # (Auto) 0.8 th/mm3 (0.0-0.9); Mono % (Auto) 9.6 % (0.0-8.0); Neut # (Auto) 5.7 th/mm3 (1.8-7.7); Neut % (Auto) 68.8 % (16.0-70.0); Platelet Count 147 th/mm3 (150-450); Red Blood Count 4.91 mil/mm3 (4.50-5.90); Red Cell Distribution Width 15.3 % (11.6-17.2); White Blood Count 8.3 th/mm3 (4.0-11.0)
[2017-11-25 05:32] LABS: Alanine Aminotransferase 224 U/L (12-78); Albumin 3.1 g/dL (3.4-5.0); Alkaline Phosphatase 55 U/L (45-117); Anion Gap 10 meq/L (5-15); Aspartate Aminotransferase 243 U/L (15-37); Blood Urea Nitrogen 6 mg/dL (7-18); Calcium 7.9 mg/dL (8.5-10.1); Carbon Dioxide 24.4 meq/L (21.0-32.0); Chloride 109 meq/L (98-107); Glomerular Filtration Rate Greater Than 89 mL/min (>89); Glucose,Random 79 mg/dL (74-106); Magnesium 2.5 mg/dL (1.5-2.5); Phosphorus 2.5 mg/dL (2.5-4.9); Potassium 3.3 meq/L (3.5-5.1); Sodium 143 meq/L (136-145); Total Protein 6.4 g/dL (6.4-8.2)
[2017-11-25] MEDS: fentaNYL 10 mcg/mL Premix Drip 2,500 MCG/250 ML BAG IV.SIG PRN ×2 (05:56→15:34)
[2017-11-25] MEDS: Dextrose 5%/NaCl 0.9% Inj 1,000 ML IV.CONT SCH (06:53)
--- NOTE | 2017-11-25 07:34 | P.PNCC ---
Subjective Subjective Remarks/Hospital Course: The patient is a 36-year-old male with a history of ETOH abuse, who was at a [facility] for alcohol detoxification, became confused, hallucinating and possibly going into alcohol withdrawal. EVAC found him tachycardic, hypertensive. In the ER, he was given Ativan 10 mg total, Benadryl 50 mg and ketamine. His laboratory data is significant for elevated liver enzymes with AST 154, ALT 158 and total bilirubin 1.8. Urine drug screen is pending and his serum alcohol level is less than 3. Chest x-ray in the ED showed no acute findings identified. When seen, the patient is tachycardic with heart rate in the 120s, hypertensive with blood pressure 156/85. He is on room air oxygen with a saturation of 98-100%. History was obtained from reviewing medical records, as the patient is a poor historian due to his mental status. 11/25 Patient was intubated yesterday sedated with Diprivan and Fentanyl. Afebrile. Objective Vital Signs / I&O: Vital Signs 11/24/17 09:00 11/24/17 09:05 11/24/17 09:30 Temperature 99.5 F Pulse Rate 105 H 105 H 156 H Respiratory Rate 43 H Blood Pressure 119/84 119/84 Pulse Oximetry 11/24/17 10:00 11/24/17 10:09 11/24/17 12:00 Temperature 97.1 F L Pulse Rate 83 62 Respiratory Rate 16 16 16 Blood Pressure 127/69 92/55 L Pulse Oximetry 95 99 98 11/24/17 14:00 11/24/17 15:22 11/24/17 16:00 Temperature 98.3 F Pulse Rate 83 70 Respiratory Rate 16 20 Blood Pressure 100/67 Pulse Oximetry 11/24/17 18:00 11/24/17 19:24 11/24/17 19:30 Temperature Pulse Rate 78 71 70 Respiratory Rate 16 16 Blood Pressure 88/55 L Pulse Oximetry 96 96 11/24/17 19:45 11/24/17 20:00 11/24/17 20:15 Temperature 98.7 F Pulse Rate 71 70 72 Respiratory Rate 16 16 16 Blood Pressure 91/59 L 92/59 L 93/61 L Pulse Oximetry 97 97 96 11/24/17 20:30 11/24/17 20:45 11/24/17 21:00 Temperature Pulse Rate 72 71 70 Respiratory Rate 17 17 16 Blood Pressure 96/63 L 99/66 L 100/71 Pulse Oximetry 97 97 99 11/24/17 21:15 11/24/17 21:17 11/24/17 21:30 Temperature Pulse Rate 71 102 H Respiratory Rate 17 16 15 Blood Pressure 103/70 119/69 Pulse Oximetry 100 96 98 11/24/17 21:45 11/24/17 22:00 11/24/17 22:15 Temperature Pulse Rate 83 81 84 Respiratory Rate 16 16 16 Blood Pressure 109/66 105/64 97/59 L Pulse Oximetry 100 100 97 11/24/17 22:30 11/24/17 22:45 11/24/17 23:00 Temperature Pulse Rate 82 79 75 Respiratory Rate 16 16 16 Blood Pressure 94/58 L 91/55 L 88/53 L Pulse Oximetry 96 96 96 11/24/17 23:15 11/24/17 23:30 11/24/17 23:45 Temperature Pulse Rate 73 73 71 Respiratory Rate 16 16 16 Blood Pressure 89/55 L 87/54 L 87/54 L Pulse Oximetry 96 96 96 11/25/17 00:00 11/25/17 00:15 11/25/17 00:30 Temperature 98.8 F Pulse Rate 98 H 79 76 Respiratory Rate 20 16 16 Blood Pressure 96/62 L 95/58 L 91/57 L Pulse Oximetry 78 L 100 100 11/25/17 00:45 11/25/17 01:00 11/25/17 01:15 Temperature Pulse Rate 75 79 77 Respiratory Rate 16 16 16 Blood Pressure 92/57 L 89/58 L 87/53 L Pulse Oximetry 97 97 97 11/25/17 01:30 11/25/17 01:45 11/25/17 02:00 Temperature Pulse Rate 75 72 102 H Respiratory Rate 16 16 32 H Blood Pressure 86/54 L 87/54 L Pulse Oximetry 96 96 93 L 11/25/17 02:04 11/25/17 02:16 11/25/17 02:30 Temperature Pulse Rate 106 H 114 H 118 H Respiratory Rate 12 18 21 Blood Pressure 143/83 H 178/77 H 137/65 Pulse Oximetry 72 L 73 L 66 L 11/25/17 02:45 11/25/17 03:00 11/25/17 03:15 Temperature Pulse Rate 100 H 98 H 108 H Respiratory Rate 16 16 16 Blood Pressure 127/63 111/63 117/60 Pulse Oximetry 94 L 91 L 95 11/25/17 03:30 11/25/17 03:45 11/25/17 04:00 Temperature 101.1 F H Pulse Rate 105 H 106 H 97 H Respiratory Rate 16 16 17 Blood Pressure 117/58 L 111/58 L 132/72 Pulse Oximetry 93 L 93 L 92 L 11/25/17 04:14 11/25/17 06:00 Temperature Pulse Rate 97 H Respiratory Rate 17 Blood Pressure Pulse Oximetry 94 L Intake & Output 11/24/17 11/25/17 11/25/17 18:59 06:59 18:59 Intake Total 600 / 600 4178 / 4178 Output Total 975 / 975 350 / 350 Balance -375 / -375 3828 / 3828 Weight 90.5 kg Intake: IV 500 / 500 3665 / 3665 Precedex Inj 200 MCG In NS Inj 50 / 50 48 ML @ 0.2 MCG/KG/HR 3.85 mls/ hr IV.CONT TITRATE PRN Rx#: [id number] D5W/Normal Saline Inj 1,000 ML 2000 / 2000 @ 84 mls/hr IV.CONT .[id number] NAYELY Rx#:[id number] Diprivan 1000 mg/100 ml Inj 1, 200 / 200 300 / 300 000 mg In 100 ml @ 5 MCG/KG/MIN 2.313 mls/hr IV.CONT TITRATE PRN Rx#:[id number] Magnesium Sulfate Inj 2 GM In 100 / 100 NS Inj 96 ML @ 50 mls/hr IV.SIG UNSCH PRN Rx#:[id number] KCl 20 mEq Premix Inj 20 meq In 300 / 300 200 / 200 100 ml @ 50 mls/hr IV.SIG Q2H PRN Rx#:[id number] fentaNYL 10 mcg/mL Premix Drip 500 / 500 2,500 mcg In 250 ml @ 50 MCG/HR 5 mls/hr IV.SIG TITRATE PRN Rx #:[id number] Tube Feeding 100 / 100 513 / 513 Output: Urine 975 / 975 350 / 350 Result Diagrams: 11/25/17 04:04 11/25/17 04:04 Other Results: Laboratory Results - last 12 hr 11/25/17 11/25/1711/25/18 00:06 00:46 04:04 WBC 8.3 RBC 4.91 Hgb 14.8 D Hct 43.8 MCV 89.2 MCH 30.1 MCHC 33.7 RDW 15.3 Plt Count 147 L MPV 9.6 Neut % (Auto) 68.8 Lymph % (Auto) 16.0 [place] % (Auto) 9.6 H Eos % (Auto) 4.5 H Baso % (Auto) 1.1 Neut # (Auto) 5.7 Lymph # (Auto) 1.3 [place] # (Auto) 0.8 Eos # (Auto) 0.4 Baso # (Auto) 0.1 WBC Differential . Differential Comment Auto diff final Sodium Potassium 3.4 L Chloride Carbon Dioxide Anion Gap BUN Creatinine Estimated GFR POC Glucose 103 Random Glucose Calcium Phosphorus Magnesium Total Bilirubin AST ALT Alkaline Phosphatase Total Protein Albumin 11/25/17 11/25/17 04:04 05:25 WBC RBC Hgb Hct MCV MCH MCHC RDW Plt Count MPV Neut % (Auto) Lymph % (Auto) [place] % (Auto) Eos % (Auto) Baso % (Auto) Neut # (Auto) Lymph # (Auto) [place] # (Auto) Eos # (Auto) Baso # (Auto) WBC Differential Differential Comment Sodium 143 D Potassium 3.3 L Chloride 109 H D Carbon Dioxide 24.4 Anion Gap 10 BUN 6 L Creatinine 0.84 Estimated GFR Greater than 89 POC Glucose 109 Random Glucose 79 Calcium 7.9 L D Phosphorus 2.5 Magnesium 2.5 D Total Bilirubin 0.9 AST 243 H ALT 224 H Alkaline Phosphatase 55 Total Protein 6.4 D Albumin 3.1 L D Imaging: Liver Ultrasound 11/24/17 00:00 CONCLUSION: 1. Hepatomegaly with steatosis. 2. Spleen measures at the upper limits for normal in size. Chest X-Ray 11/24/17 10:11 CONCLUSION: 1. Endotracheal tube in appropriate position with tip measuring approximately 3.7 cm from the lucy. 2. Underinflated examination with suspected subsegmental atelectasis at the bases. Assessment and Plan - Assessment and Plan Plan: 1. VDRF 2. Altered mental status. 3. ETOH intoxication. 4. Elevated liver enzymes. 5. Hypokalemia. Plan Neuro: On Diprivan and Fentanyl infusion for sedation. Monitor neuro status closely. Daily sedation vacation. Continue thiamine, multivitamins and folic acid. Pulm: Continue with vent support keep sats >92%. Bronchodilators, ICU vent bundle SBT daily as henri CV: Monitor HR and BP and maintain MAP >65mmHg : Monitor renal function, intake and output, and electrolyte replacement per protocol. Will need K replacement today ID: Monitor for signs of infection( fever and WBC). panculture if spikes a fever. Endo: SSI with Accu-Cheks if needed to maintain euglycemia. GI: on Protonix 40 mg daily for GI prophylaxis. Glucerna 1.5 @45ml/hr Monitor LFT's, US Liver: Hepatomegaly with steatosis Hepatitis profile negative. Heme: Monitor CBC GI prophylaxis with Protonix. DVT prophylaxis with SCD and heparin subcutaneous. Level 3
[2017-11-25] MEDS: Pantoprazole Inj 40 MG Vial IV.PUSH SCH (08:45)
[2017-11-25] MEDS: Senna/Docusate Sodium 8.6/50 MG Tablet PO SCH ×2 (08:45→20:20)
[2017-11-25] MEDS: Heparin - SQ 10,000 UNITS/ML Vial SQ SCH ×2 (08:45→20:20)
[2017-11-25] MEDS: Folic Acid 1 MG Tablet PO SCH (08:45)
[2017-11-25] MEDS: Chlorhexidine 0.12% Oral Kit 15 ML UDC OROPHARYNG SCH ×2 (08:46→20:21)
[2017-11-25] MEDS: Sodium Chloride 0.9% 2 ML Flush BID IV.FLUSH SCH (20:21)
[2017-11-26] MEDS: Oral Hygiene Kit OROPHARYNG SCH ×4 (00:28→16:10)
[2017-11-26] MEDS: Insulin NovoLIN Regular Correctional Sugar Inj SQ SCH ×4 (00:28→18:52)
[2017-11-26] MEDS ORDERED: Acetaminophen Inj 650 MG/65 ML VIAL IV.SIG ONE (00:38)
[2017-11-26] MEDS: Propofol 1000 mg/100 ml Inj 1,000 MG/100 ML BOTTLE IV.CONT PRN ×6 (01:07→20:59)
[2017-11-26] MEDS: Midazolam 50 MG/50 ML Inj 50 MG/50 ML BAG IV.CONT PRN ×4 (02:50→20:59)
[2017-11-26] MEDS: Epoprostenol (30,000/mL) Neb 100 ML in Sodium Chlor 0.9% Inj 0 ML NEB SCH ×2 (04:06→14:23)
[2017-11-26] MEDS: Chlorhexidine Gluconate 2% 1 Pack (2 Cloths) TOPICAL SCH (04:07)
[2017-11-26 04:09] LABS: ABG Base Excess 0.1 mmol/L (-2-2); ABG PCO2 48 mmHg (38-42); ABG PO2 73 mmHG (61-120)
--- NOTE | 2017-11-26 04:44 | P.PCN ---
Date of procedure: 11/26/17 Pre-op diagnosis: Refractory hypoxemic respiratory failure/acute Post-op diagnosis: same Procedure: DATE: 11/26/2017 Bronchoscopy/diagnostic and therapeutic INDICATION: Refractory hypoxemic respiratory failure/acute CONSENT Informed consent for procedure was not obtained from father Brett Thrasher as procedure was considered emergent due to life-threatening worsening of clinical condition DESCRIPTION OF THE PROCEDURE The patient was placed in supine position. The patient was on pressure control /assist control ventilation. FiO2 100%. PEEP of 10. I entered the 8.0 ET tube with the fiberoptic bronchoscope. Minimal to no thin secretions noted in ETT. The lucy was sharp. I evaluated the right upper, middle and lower lobes. Few thin secretions noted in the right lower lobe. These were suctioned and quickly. The mucosa was normal. No masses were identified. I evaluated the left upper/lingula lower lobe. No secretions were noted. Gently lavaged with 30 cc saline. Bronchus scope was withdrawn and the procedure stopped. I did not perform a Lukens trap lavage due to severity of patient's clinical condition. And minimal secretions. ESTIMATED BLOOD LOSS: Minimal COMPLICATIONS: No apparent complications. STAT chest x-ray pending at time of dictation.
--- NOTE | 2017-11-26 04:48 | P.PNCC ---
Critical Care Event Note Code activated: No Narrative: Called to evaluate patient as patient acutely desaturated. Received 50 mg rocuronium and attempted inverse ratio ventilation. Saturations remained in the mid 80s. Once paralytic wore off. Placed on APRV with minimal success. Emergent bronchoscopy was performed see orders under pressure control ventilation. Afterwards, patient was placed back on APRV and started epoprostenol aerosolized. Saturation currently 92%. Follow-up ABG pending. Attempted to contact father but no answer. Critical care time: less than 30 mins
--- NOTE | 2017-11-26 04:53 | XR ---
EXAM DATE: 11/26/2017 3:21 AM EDT AGE/SEX: 36 years / Male INDICATIONS: Short of breath. CLINICAL DATA: This is the patient's subsequent encounter. Patient reports that signs and symptoms h ave been present for 1 week and indicates a pain score of 0/10. MEDICAL/SURGICAL HISTORY: Non-responsive. Non-responsive. COMPARISON: [facility] [place], CHEST 1V SINGLE AP, 11/24/2017. . FINDINGS: Stable ETT and NGT coursing beyond the GE junction. Lungs are hypoaerated with worsening hazy opacity in the right hemithorax. Persistent airspace disease in the left lung base. Cardiomediastinal contou rs are stable. Remainder of the exam is unchanged. CONCLUSION: 1. Stable ETT and NGT. 2. Developing right-sided pleural effusion and associated airspace disease. 3. Persistent left lung base airspace disease. Electronically signed by: David Smart MD 11/26/2017 4:52 AM EDT
[2017-11-26 05:26] LABS: ABG PCO2 42 mmHg (38-42); ABG PO2 83 mmHG (61-120)
--- NOTE | 2017-11-26 05:34 | XR ---
EXAM DATE: 11/26/2017 12:00 AM EDT AGE/SEX: 36 years / Male INDICATIONS: Post bronch, short of breath. CLINICAL DATA: This is the patient's subsequent encounter. Patient reports that signs and symptoms h ave been present for 1 week and indicates a pain score of 0/10. MEDICAL/SURGICAL HISTORY: Non-responsive. Non-responsive. COMPARISON: [facility] [place], CHEST 1V SINGLE AP, 11/26/2017. . FINDINGS: Stable ETT and NGT. Slightly improved aeration in the left lower lung zone. Persistent patchy airspac e disease throughout the right lung. Cardiomediastinal contours are within normal limits. Bony thorax is intact. CONCLUSION: 1. Stable ETT and NGT. 2. Persistent patchy airspace consolidation throughout the right lung. 3. Improved aeration in the left lower lung zone. Electronically signed by: David Smart MD 11/26/2017 5:33 AM EDT
[2017-11-26 05:55] LABS: Baso % (Auto) 0.3 % (0.0-2.0); Eos # (Auto) 0.1 th/mm3 (0.0-0.4); Eos % (Auto) 0.4 % (0.0-4.0); Hematocrit 45.1 % (39.0-51.0); Hemoglobin 15.2 gm/dL (13.0-17.0); Lymph # (Auto) 0.6 th/mm3 (1.0-4.8); Lymph % (Auto) 4.3 % (9.0-44.0); Mean Corpuscular HGB Conc 33.7 % (32.0-36.0); Mean Corpuscular Volume 89.2 fL (80.0-100.0); Mean Platelet Volume 9.1 fL (7.0-11.0); Mono # (Auto) 1.4 th/mm3 (0.0-0.9); Mono % (Auto) 10.4 % (0.0-8.0); Neut # (Auto) 11.5 th/mm3 (1.8-7.7); Neut % (Auto) 84.6 % (16.0-70.0); Platelet Count 158 th/mm3 (150-450); Red Blood Count 5.06 mil/mm3 (4.50-5.90); White Blood Count 13.6 th/mm3 (4.0-11.0)
[2017-11-26 06:18] LABS: Albumin 3.1 g/dL (3.4-5.0); Anion Gap 9 meq/L (5-15); Aspartate Aminotransferase 144 U/L (15-37); Blood Urea Nitrogen 7 mg/dL (7-18); Carbon Dioxide 23.9 meq/L (21.0-32.0); Chloride 107 meq/L (98-107); Glomerular Filtration Rate 81 mL/min (>89); Glucose,Random 95 mg/dL (74-106); Magnesium 2.1 mg/dL (1.5-2.5); Potassium 3.4 meq/L (3.5-5.1); Sodium 140 meq/L (136-145)
[2017-11-26 06:22] LABS: Alanine Aminotransferase 183 U/L (12-78); Alkaline Phosphatase 90 U/L (45-117); Phosphorus 3.2 mg/dL (2.5-4.9); Total Protein 6.8 g/dL (6.4-8.2)
[2017-11-26 07:07] LABS: ABG Base Excess -1.3 mmol/L (-2-2); ABG PCO2 37 mmHg (38-42); ABG PO2 67 mmHG (61-120)
--- NOTE | 2017-11-26 07:17 | P.PNCC ---
Subjective Subjective Remarks/Hospital Course: The patient is a 36-year-old male with a history of ETOH abuse, who was at a [facility] for alcohol detoxification, became confused, hallucinating and possibly going into alcohol withdrawal. EVAC found him tachycardic, hypertensive. In the ER, he was given Ativan 10 mg total, Benadryl 50 mg and ketamine. His laboratory data is significant for elevated liver enzymes with AST 154, ALT 158 and total bilirubin 1.8. Urine drug screen is pending and his serum alcohol level is less than 3. Chest x-ray in the ED showed no acute findings identified. When seen, the patient is tachycardic with heart rate in the 120s, hypertensive with blood pressure 156/85. He is on room air oxygen with a saturation of 98-100%. History was obtained from reviewing medical records, as the patient is a poor historian due to his mental status. 11/25 Patient was intubated yesterday sedated with Diprivan and Fentanyl. Afebrile. 11/26: persistently hypoxic overnight requiring 100% fio2. this AM, CT chest demonstrates large clot burden right-sided PE as well as severe airspace disease on the right, concerning for aspiration pneumonitis/pneumonia. Objective Vital Signs / I&O: Vital Signs 11/25/17 08:00 11/25/17 10:00 11/25/17 12:00 Temperature 37.7 C H 38.4 C H Pulse Rate 91 H 98 H 88 Respiratory Rate 16 16 Blood Pressure 105/59 L 111/59 L Pulse Oximetry 95 95 11/25/17 12:13 11/25/17 14:00 11/25/17 16:00 Temperature 36.6 C Pulse Rate 100 H 89 Respiratory Rate 16 22 Blood Pressure 113/58 L Pulse Oximetry 95 96 11/25/17 16:09 11/25/17 16:15 11/25/17 16:30 Temperature Pulse Rate 93 H 86 Respiratory Rate 16 23 14 Blood Pressure 115/62 109/60 Pulse Oximetry 96 95 95 11/25/17 16:45 11/25/17 17:00 11/25/17 17:15 Temperature Pulse Rate 85 83 97 H Respiratory Rate 15 16 22 Blood Pressure 107/59 L 106/57 L 119/73 Pulse Oximetry 96 96 98 11/25/17 17:27 11/25/17 17:30 11/25/17 17:45 Temperature Pulse Rate 87 99 H Respiratory Rate 16 16 21 Blood Pressure 111/57 L 119/67 Pulse Oximetry 97 96 11/25/17 18:00 11/25/17 18:15 11/25/17 18:30 Temperature Pulse Rate 89 93 H 86 Respiratory Rate 16 16 16 Blood Pressure 111/62 114/63 112/60 Pulse Oximetry 94 L 96 91 L 11/25/17 18:45 11/25/17 19:00 11/25/17 19:09 Temperature Pulse Rate 87 116 H 100 H Respiratory Rate 16 21 18 Blood Pressure 111/58 L 127/62 Pulse Oximetry 92 L 89 L 93 L 11/25/17 20:00 11/25/17 21:00 11/25/17 21:05 Temperature 38.2 C H Pulse Rate 93 H 103 H Respiratory Rate 17 18 16 Blood Pressure 119/58 L 124/62 Pulse Oximetry 93 L 96 94 L 11/25/17 22:00 11/25/17 23:00 11/26/17 00:00 Temperature 38.8 C H Pulse Rate 87 86 100 H Respiratory Rate 16 16 18 Blood Pressure 107/64 105/62 123/65 Pulse Oximetry 93 L 97 93 L 11/26/17 01:00 11/26/17 01:30 11/26/17 02:00 Temperature Pulse Rate 122 H 91 H Respiratory Rate 40 H 17 16 Blood Pressure 131/81 117/66 Pulse Oximetry 85 L 94 L 11/26/17 03:00 11/26/17 03:50 11/26/17 04:00 Temperature Pulse Rate 123 H 147 H Respiratory Rate 23 20 Blood Pressure 149/89 H 147/89 H Pulse Oximetry 90 L 91 L 83 L 11/26/17 04:02 11/26/17 04:04 11/26/17 04:10 Temperature Pulse Rate 160 H 137 H 135 H Respiratory Rate 24 21 13 Blood Pressure 201/110 H 165/81 H 88/50 L Pulse Oximetry 82 L 83 L 82 L 11/26/17 04:12 11/26/17 04:15 11/26/17 04:30 Temperature Pulse Rate 138 H 125 H 129 H Respiratory Rate 13 19 13 Blood Pressure 97/54 L 118/60 92/54 L Pulse Oximetry 82 L 84 L 89 L 11/26/17 04:35 11/26/17 04:40 11/26/17 04:45 Temperature Pulse Rate 130 H 130 H 128 H Respiratory Rate 13 18 13 Blood Pressure 83/49 L 88/51 L 85/50 L Pulse Oximetry 92 L 94 L 92 L 11/26/17 04:50 11/26/17 04:55 11/26/17 05:35 Temperature Pulse Rate 129 H 128 H Respiratory Rate 13 13 12 Blood Pressure 82/49 L 81/51 L Pulse Oximetry 92 L 92 L 93 L Intake & Output 11/25/17 11/26/17 11/26/17 18:59 06:59 18:59 Intake Total 1939 / 1939 365 / 365 Output Total 1700 / 1700 Balance 239 / 239 365 / 365 Intake: IV 1450 / 1450 365 / 365 D5W/Normal Saline Inj 1,000 ML 800 / 800 @ 84 mls/hr IV.CONT .[id number] NAYELY Rx#:[id number] Diprivan 1000 mg/100 ml Inj 1, 300 / 300 300 / 300 000 mg In 100 ml @ 5 MCG/KG/MIN 2.313 mls/hr IV.CONT TITRATE PRN Rx#:[id number] Ofirmev Inj 650 mg In 65 ml @ 65 / 65 260 mls/hr IV.SIG ONCE ONE Rx#: [id number] KCl 20 mEq Premix Inj 20 meq In 100 / 100 100 ml @ 50 mls/hr IV.SIG Q2H PRN Rx#:[id number] fentaNYL 10 mcg/mL Premix Drip 250 / 250 2,500 mcg In 250 ml @ 50 MCG/HR 5 mls/hr IV.SIG TITRATE PRN Rx #:[id number] Tube Feeding 489 / 489 Output: Urine 1700 / 1700 Result Diagrams: 11/26/17 05:38 11/26/17 05:38 Objective Remarks: GENERAL: young male, lying in bed, intubated, sedated, cyanotic HEENT: Normocephalic. Atraumatic. Pupils equal, round, reactive, conjugate. Mucous membranes are moist NECK: Trachea is midline. There is no JVD. CHEST: PC/AC peep 12, fio2 100%. coarse breath sounds, R>L. spo2 91%. CARDIOVASCULAR: normal rate, regular rhythm. sinus. ABDOMEN: Soft, nontender, nondistended. No guarding. MUSCULOSKELETAL: Pulses 2+. No peripheral edema. NEUROLOGICAL: RASS -4. deeply sedated. Assessment and Plan - Assessment and Plan Plan: Assessment: 36yM with etoh withdraw syndrome now with severe life-threatening aspiration pneumonitis/pneumonia and massive pulmonary embolism causing life- threatening hypoxemia. have discussed with his father who is also a physician and he agrees with me and recommends lytic therapy. I have ordered TPA and heparin infusion to follow. continue maximal ventilatory support. Plan by systems: Neurologic: Acute alcohol withdrawal syndrome Delirium tremens Acute agitated deliriumsevere Acute metabolic encephalopathy Frequent neurochecks Propofol, Versed, fentanyl for goal RASS -2 Avoid long-acting sedatives No weaning sedation today given severe hypoxemia Respiratory: Severe life-threatening massive pulmonary embolism Severe aspiration pneumonitis/pneumonia Severe acute hypoxemia Acute hypoxic and hypercarbic respiratory failure Vent bundle Head of bed elevated Nebs Inhaled Flolan IV systemic TPA Continue pressure control mode of ventilation Wean FiO2 for goal SPO2 greater than 90% No SBT or weaning mechanical ventilation until severe hypoxemia improves Order echo to rule out intracardiac shunt and eval for RV dysfunction Cardiovascular: Submassive pulmonary embolism Systemic TPA Check troponin and BNP 2D echo Heparin drip Renal: Acute kidney injury Secondary to shock from PE -- Strict I/Os FEN/GI: N.p.o. Place orogastric tube to suction Daily BMP, mag, phosphorus Heme/ID: Severe aspiration pneumonia PE Send hypercoagulable labs Patient's father says that 6 months ago he had a new diagnosis of a PE, may be familial Cover empirically with vancomycin/zosyn send sputum, blood cultures Endocrine: hyperglycemia of critical illness -- SSI Prophylaxis: GI Prophylaxis pepcid DVT Prophylaxis -- SCDs heparin drip Lines: 11/26: left radial art line 102: right IJ TLC Dispo: remain in ICU. critically ill. This patient remains critically ill with one or more organ systems which are or may become a threat to life. I have spent in excess of 52 minutes discontinuously in the care and management of this patient. This time is exclusive of procedures, and includes, but is not limited to, evaluation of the patient, review of the medical record, discussions with family, consultants, nursing staff, or respiratory therapy, and documentation in the medical record. Procedures - Arterial Line Time out performed: Yes Size (Gauge): 20 Technique used: direct puncture technique Post-Procedure: line sutured into place Site: left, radial Additional comments: Procedure: Arterial Line Placement Left radial arterial line Diagnosis: Acute hypoxemia Indications: Need for serial arterial blood gas sampling Consent: Emergent Description of the Procedure: The left wrist was prepped and draped sterilely. 1% lidocaine was used for local anesthesia. The pulse was located and a needle was advanced into the artery. A 20 gauge, 12 cm catheter was advanced into the artery using a modified Seldinger technique. The catheter was sutured to the skin and a sterile dressing was applied. The catheter was connected to a pressure transducer and an arterial waveform was noted. There were no immediate complications noted. There was minimal EBL. I personally performed the procedure. - Central Line Placement Right IJ Time out performed: Yes Patient placed on monitor/pulse ox: Yes MD prep: mask, gown, gloves Central line prep: Chlorhexidine scrub Local anesthesia used: lidocaine 1% Ultrasound used for placement: Yes Central line lumen inserted: triple Post procedure: sutured in place Post procedure x-ray: tip of catheter in good position, no pneumothorax seen Additional comments: Central Line Procedure Note 7 [place] 20 cm right IJ triple-lumen catheter Diagnosis: Acute hypoxemia Indications: Need for highly potent vasoactive substances Consent: Emergent Anesthesia: Propofol, fentanyl, Versed IV Description of the Procedure: The patient was placed in the supine, mild- Trendelenburg position. The area was prepped and draped sterilely. A 19g needle was inserted under negative pressure aspiration and dark venous blood was obtained. A guidewire was inserted easily without resistance. A small incision was made using a #11 blade. Using a modified Seldinger technique, the dilator and 7 Libyan, 20 cm catheter were advanced over the guidewire without resistance. All ports were aspirated and flushed, and had brisk blood return. The line was secured at 16 cm at the skin using 2-0 silk interrupted sutures. Suture was used instead of a non-suture StatLock device because the patient was too diaphoretic for the non-suture StatLock device to secure appropriately. A Biopatch and Transparent sterile dressing were applied. There were no immediate complications noted. There was minimal EBL. The patient tolerated the procedure well. Ultrasound Guidance: Ultrasound guidance was used to identify the right internal jugular vein. The vascular anatomy of the right anterior neck was normal. The vessel was cannulated under direct, real-time ultrasound visualization. After placement of the guidewire, confirmation of the guidewire in the lumen of the vessel was made using ultrasound visualization, before dilation of the tract. A Chest x-ray has been ordered. I personally performed the procedure.
[2017-11-26] MEDS: Heparin - SQ 10,000 UNITS/ML Vial SQ SCH ×2 (08:02→22:00)
[2017-11-26] MEDS: Folic Acid 1 MG Tablet PO SCH (08:02)
[2017-11-26] MEDS: Chlorhexidine 0.12% Oral Kit 15 ML UDC OROPHARYNG SCH ×2 (08:02→21:59)
[2017-11-26] MEDS: Senna/Docusate Sodium 8.6/50 MG Tablet PO SCH ×2 (08:03→22:00)
[2017-11-26] MEDS: Sodium Chloride 0.9% 2 ML Flush PRN IV.FLUSH (08:03)
[2017-11-26] MEDS: Sodium Chloride 0.9% 2 ML Flush BID IV.FLUSH SCH ×2 (08:03→22:00)
[2017-11-26] MEDS: Pantoprazole Inj 40 MG Vial IV.PUSH SCH (08:03)
[2017-11-26 08:07] LABS: Lymphocytes 3 % (9-44); Monocytes 7 % (0-8); Myelocytes 1 % (0-0)
[2017-11-26 08:08] LABS: Dohle Bodies Present; Platelet Estimate Normal (Normal); Platelet Morphology Normal (Normal); Toxic Vacuolation Present
[2017-11-26 08:09] LABS: Stomatocytes 1+
--- NOTE | 2017-11-26 09:32 | CT ---
EXAM DATE: 11/26/2017 8:37 AM EDT AGE/SEX: 36 years / Male INDICATIONS: Short of breath, decreased sats. CLINICAL DATA: This is the patient's initial encounter. Patient reports that signs and symptoms have been present for 1 day and indicates a pain score of Nonresponsive. MEDICAL/SURGICAL HISTORY: None. ETOH None. RADIATION DOSE: 10.73 CTDI (mGy) COMPARISON: No prior exams available for comparison. TECHNIQUE: Volumetric scanning was performed using a multi-row detector CT scanner during bolus infu nitish of 75 ml Omnipaque 350 (iohexol) nonionic water-soluble contrast as a single exam dose. The aruna a was post processed with a variety of visualization algorithms including full volume maximum intensi ty projection and sliding thin slab reformation. Using automated exposure control and adjustment of t he mA and/or kV according to patient size, radiation dose was kept as low as reasonably achievable to obtain optimal diagnostic quality images. DICOM format image data is available electronically for r eview and comparison. FINDINGS: Pulmonary Arteries: Acute pulmonary emboli noted on the right. There is small volume nearly occlusiv e thrombus involving the right upper lobe pulmonary artery extending from its origin into the first b ranch point. There is nonocclusive thrombus seen situated at the interlobar pulmonary artery at its b ifurcation point extending into the origin of the segmental branches of the lower lobe. No thrombus s een on the left. No large saddle emboli observed. Lung: Dense consolidation with mild air bronchogram formation involving both lower lobes but more pr onounced on the right.. Effusion: None. Mediastinum: Endotracheal tube observed with the tip 4 cm from the lucy. Heart is normal in size. No pericardial effusion. Aorta is normal in caliber. No mass or adenopathy.. Other: The axilla is unremarkable. CONCLUSION: 1. Small volume right sided acute pulmonary emboli. 2. Bibasilar pulmonary consolidations. Electronically signed by: Robert Foley MD 11/26/2017 9:31 AM EDT
[2017-11-26] MEDS ORDERED: Alteplase Inj 50 MG in Water for Inj, Sterile 50 ML IV.SIG ONE (10:22)
[2017-11-26] MEDS: fentaNYL 10 mcg/mL Premix Drip 2,500 MCG/250 ML BAG IV.SIG PRN ×2 (11:00→21:00)
--- NOTE | 2017-11-26 11:03 | XR ---
EXAM DATE: 11/26/2017 12:00 AM EDT AGE/SEX: 36 years / Male INDICATIONS: Central line placement. CLINICAL DATA: This is the patient's initial encounter. Patient reports that signs and symptoms have been present for 1 day and indicates a pain score of Nonresponsive. MEDICAL/SURGICAL HISTORY: None. None. COMPARISON: [facility] [place], CHEST 1V SINGLE AP, 11/26/2017. . FINDINGS: There is persistent diffuse infiltrate of the right lung as well as left basilar patchiness which is stable. Endotracheal tube and nasogastric tube are unchanged. Right internal jugular central line has been placed and has its tip in the superior vena cava. There is no pneumothorax. The heart is stable . CONCLUSION: 1. No pneumothorax status post placement of right internal jugular central line which has its tip in the superior vena cava. 2. No significant change in the bilateral pulmonary infiltrates (right worse than left). Electronically signed by: Casper Gallegos MD 11/26/2017 11:02 AM EDT
[2017-11-26 11:27] LABS: Activated Partial Thrombo Time 25.5 sec (24.3-30.1)
[2017-11-26 11:30] LABS: Prothrombin Time 10.3 sec (9.8-11.6)
[2017-11-26] MEDS: Heparin Drip 25,000 UNIT/250 ML BAG IV.CONT PRN (12:24)
[2017-11-26] MEDS: Potassium Chlor 20 mEq Premix 20 MEQ/100 ML PIGGYBACK IV.SIG PRN ×3 (12:25→14:11)
[2017-11-26 14:08] LABS: Bacteria,Urine Rare /hpf; Bilirubin,Urine Negative (Negative); Clarity,Urine Clear (Clear); Color,Urine Yellow (Yellw/Straw); Glucose,Urine (UA) Negative (Negative); Leukocyte Esterase,Urine Negative (Negative); Mucus,Urine Few /lpf (Occasional); Nitrite,Urine Negative (Negative); Specific Gravity,Urine 1.051 (1.002-1.035); Squamous Epithelial Cell,Urine <1 /hpf (0-5)
[2017-11-26] MEDS ORDERED: Vancomycin Consult Pharmacy OTHER PRN (17:22)
[2017-11-26] MEDS ORDERED: Vancomycin Inj 1,500 MG in Sodium Chlor 0.9% Inj 500 ML IV.SIG ONE (20:00)
[2017-11-26] MEDS: Piperacil/Tazo 4.5 GM Premix 4.5 GM/100 ML BAG IV.SIG SCH (21:00)
[2017-11-27] MEDS: Propofol 1000 mg/100 ml Inj 1,000 MG/100 ML BOTTLE IV.CONT PRN ×7 (01:20→22:48)
[2017-11-27] MEDS: Oral Hygiene Kit OROPHARYNG SCH ×4 (01:21→15:57)
[2017-11-27] MEDS: Piperacil/Tazo 4.5 GM Premix 4.5 GM/100 ML BAG IV.SIG SCH ×4 (01:21→20:27)
[2017-11-27] MEDS: Insulin NovoLIN Regular Correctional Sugar Inj SQ SCH ×4 (01:22→17:20)
[2017-11-27 01:24] LABS: Hematocrit 38.3 % (39.0-51.0); Hemoglobin 13.2 gm/dL (13.0-17.0); Mean Corpuscular HGB Conc 34.5 % (32.0-36.0); Mean Corpuscular Hemoglobin 30.3 pg (27.0-34.0); Mean Corpuscular Volume 87.9 fL (80.0-100.0); Mean Platelet Volume 9.3 fL (7.0-11.0); Platelet Count 131 th/mm3 (150-450); Red Blood Count 4.36 mil/mm3 (4.50-5.90); Red Cell Distribution Width 15.6 % (11.6-17.2); White Blood Count 10.1 th/mm3 (4.0-11.0)
[2017-11-27 01:36] LABS: Activated Partial Thrombo Time 60.4 sec (24.3-30.1); INR 1.1 Ratio; Prothrombin Time 10.7 sec (9.8-11.6)
[2017-11-27] MEDS: Heparin Drip 25,000 UNIT/250 ML BAG IV.CONT PRN ×2 (02:00→15:56)
[2017-11-27 02:15] LABS: Alanine Aminotransferase 109 U/L (12-78); Albumin 2.5 g/dL (3.4-5.0); Alkaline Phosphatase 56 U/L (45-117); Anion Gap 12 meq/L (5-15); Aspartate Aminotransferase 58 U/L (15-37); Blood Urea Nitrogen 9 mg/dL (7-18); Calcium 7.3 mg/dL (8.5-10.1); Carbon Dioxide 22.8 meq/L (21.0-32.0); Chloride 106 meq/L (98-107); Glomerular Filtration Rate Greater Than 89 mL/min (>89); Glucose,Random 104 mg/dL (74-106); Magnesium 1.9 mg/dL (1.5-2.5); Phosphorus 2.3 mg/dL (2.5-4.9); Potassium 3.2 meq/L (3.5-5.1); Sodium 141 meq/L (136-145); Total Protein 6.2 g/dL (6.4-8.2)
[2017-11-27] MEDS: Chlorhexidine Gluconate 2% 1 Pack (2 Cloths) TOPICAL SCH (04:23)
[2017-11-27] MEDS: Epoprostenol (30,000/mL) Neb 100 ML in Sodium Chlor 0.9% Inj 0 ML NEB SCH (04:23)
[2017-11-27] MEDS: Midazolam 50 MG/50 ML Inj 50 MG/50 ML BAG IV.CONT PRN (04:55)
--- NOTE | 2017-11-27 05:44 | CT ---
EXAM DATE: 11/27/2017 4:37 AM EDT AGE/SEX: 36 years / Male INDICATIONS: Altered mental status. CLINICAL DATA: This is the patient's initial encounter. Patient reports that signs and symptoms have been present for 1 day and indicates a pain score of 0/10. MEDICAL/SURGICAL HISTORY: . ETOH Abuse. Pulmonary embolism. None. RADIATION DOSE: 58.58 CTDI (mGy) COMPARISON: No prior exams available for comparison. TECHNIQUE: CT of the head without contrast. Using automated exposure control and adjustment of the mA and/or kV according to patient size, radiation dose was kept as low as reasonably achievable to ob tain optimal diagnostic quality images. DICOM format image data is available electronically for revi ew and comparison. FINDINGS: Cerebrum: The ventricles are normal for age. No evidence of midline shift, mass lesion, hemorrhage o r acute infarction. No extraaxial fluid collections are seen. Posterior Fossa: The cerebellum and brainstem are intact. The 4th ventricle is midline. The cerebe llopontine angle is unremarkable. Extracranial: The visualized portion of the orbits is intact. Mucopyocele thickening involving the m axillary sinuses and ethmoid air cells with fluid noted in the sphenoid sinuses. Skull: The calvaria is intact. No evidence of skull fracture. CONCLUSION: 1. No acute intracranial abnormality. 2. Paranasal sinus mucosal disease. . Electronically signed by: David Smart MD 11/27/2017 5:43 AM EDT
[2017-11-27] MEDS ORDERED: Vancomycin Inj 1,000 MG in Sodium Chlor 0.9% Inj 250 ML IV.SIG SCH (06:00)
[2017-11-27 06:04] LABS: ABG Base Excess -1.5 mmol/L (-2-2); ABG PCO2 30 mmHg (38-42); ABG PO2 78 mmHG (61-120)
[2017-11-27] MEDS: fentaNYL 10 mcg/mL Premix Drip 2,500 MCG/250 ML BAG IV.SIG PRN ×2 (06:23→17:30)
[2017-11-27] MEDS: Potassium Phosphate Inj 30 MMOL in Sodium Chlor 0.9% Inj 250 ML IV.SIG PRN (06:23)
--- NOTE | 2017-11-27 07:57 | XR ---
EXAM DATE: 11/27/2017 7:16 AM EDT AGE/SEX: 36 years / Male INDICATIONS: Shortness of breath. CLINICAL DATA: This is the patient's subsequent encounter. Patient reports that signs and symptoms h ave been present for 4 - 6 days and indicates a pain score of Nonresponsive. MEDICAL/SURGICAL HISTORY: Non-responsive. Non-responsive. COMPARISON: [facility], CHEST 1V SINGLE AP, 11/26/2017. . FINDINGS: ET tube nasogastric tube and central venous catheter in good position. Moderate bibasilar parenchymal changes are present with persistent interstitial edema improving in the interval. CONCLUSION: Support apparatus in good position. Minimal interval improvement with less interstitial changes. Electronically signed by: Shon Ivory MD 11/27/2017 7:56 AM EDT
--- NOTE | 2017-11-27 08:24 | P.PNCC ---
Subjective Subjective Remarks/Hospital Course: The patient is a 36-year-old male with a history of ETOH abuse, who was at a [facility] for alcohol detoxification, became confused, hallucinating and possibly going into alcohol withdrawal. [facility]AC found him tachycardic, hypertensive. In the ER, he was given Ativan 10 mg total, Benadryl 50 mg and ketamine. His laboratory data is significant for elevated liver enzymes with AST 154, ALT 158 and total bilirubin 1.8. Urine drug screen is pending and his serum alcohol level is less than 3. Chest x-ray in the ED showed no acute findings identified. When seen, the patient is tachycardic with heart rate in the 120s, hypertensive with blood pressure 156/85. He is on room air oxygen with a saturation of 98-100%. History was obtained from reviewing medical records, as the patient is a poor historian due to his mental status. 11/25 Patient was intubated yesterday sedated with Diprivan and Fentanyl. Afebrile. 11/26: persistently hypoxic overnight requiring 100% fio2. this AM, CT chest demonstrates large clot burden right-sided PE as well as severe airspace disease on the right, concerning for aspiration pneumonitis/pneumonia. 11/27: oxygenation improving today. some oral bleeding persists. ct head negative for bleed. Objective Vital Signs / I&O: Vital Signs 11/26/17 08:16 11/26/17 08:20 11/26/17 08:24 Temperature Pulse Rate 86 91 H 90 Respiratory Rate 18 18 18 Blood Pressure 103/67 106/75 102/64 Pulse Oximetry 98 99 97 11/26/17 08:28 11/26/17 09:00 11/26/17 09:37 Temperature Pulse Rate 90 82 Respiratory Rate 18 13 Blood Pressure 95/59 L 104/66 Pulse Oximetry 95 99 100 11/26/17 09:40 11/26/17 09:42 11/26/17 09:45 Temperature Pulse Rate 80 80 81 Respiratory Rate 18 23 24 Blood Pressure 106/68 107/68 107/69 Pulse Oximetry 100 100 100 11/26/17 09:47 11/26/17 09:50 11/26/17 09:52 Temperature Pulse Rate 80 81 82 Respiratory Rate 18 4 L 0 L Blood Pressure 110/73 108/67 104/62 Pulse Oximetry 100 100 100 11/26/17 09:55 11/26/17 09:57 11/26/17 10:00 Temperature Pulse Rate 80 82 81 Respiratory Rate 16 14 18 Blood Pressure 106/62 104/60 99/59 L Pulse Oximetry 99 98 97 11/26/17 10:02 11/26/17 10:05 11/26/17 10:07 Temperature Pulse Rate 81 81 83 Respiratory Rate 18 26 H 15 Blood Pressure 100/56 L 95/56 L 97/63 L Pulse Oximetry 97 97 97 11/26/17 10:10 11/26/17 10:12 11/26/17 10:15 Temperature Pulse Rate 83 82 82 Respiratory Rate 23 19 13 Blood Pressure 101/64 102/63 100/62 Pulse Oximetry 100 99 98 11/26/17 10:17 11/26/17 10:20 11/26/17 10:22 Temperature Pulse Rate 82 81 82 Respiratory Rate 7 L 2 L 0 L Blood Pressure 99/58 L 98/55 L 98/55 L Pulse Oximetry 97 97 97 11/26/17 10:25 11/26/17 10:27 11/26/17 10:30 Temperature Pulse Rate 82 81 82 Respiratory Rate 18 18 18 Blood Pressure 100/59 L 99/58 L 98/56 L Pulse Oximetry 99 99 98 11/26/17 11:00 11/26/17 11:17 11/26/17 11:30 Temperature Pulse Rate 80 80 Respiratory Rate 18 19 14 Blood Pressure 97/53 L 91/53 L Pulse Oximetry 98 96 92 L 11/26/17 12:00 11/26/17 12:08 11/26/17 12:30 Temperature 37.2 C 37.2 C Pulse Rate 79 79 78 Respiratory Rate 15 15 8 L Blood Pressure 95/59 L 95/59 L 103/63 Pulse Oximetry 94 L 94 L 100 11/26/17 13:00 11/26/17 13:30 11/26/17 14:00 Temperature Pulse Rate 77 79 80 Respiratory Rate 18 Blood Pressure 106/64 107/64 107/66 Pulse Oximetry 99 99 98 11/26/17 14:08 11/26/17 14:30 11/26/17 15:00 Temperature Pulse Rate 80 77 78 Respiratory Rate 18 Blood Pressure 107/66 110/69 106/66 Pulse Oximetry 98 100 98 11/26/17 15:08 11/26/17 15:19 11/26/17 15:30 Temperature Pulse Rate 78 80 Respiratory Rate 18 Blood Pressure 106/66 113/71 Pulse Oximetry 98 98 98 11/26/17 16:00 11/26/17 16:08 11/26/17 16:30 Temperature 37.1 C 37.1 C Pulse Rate 92 H 82 89 Respiratory Rate 18 18 Blood Pressure 103/59 L 107/57 L 95/58 L Pulse Oximetry 99 99 96 11/26/17 17:00 11/26/17 17:30 11/26/17 18:00 Temperature Pulse Rate 86 85 87 Respiratory Rate Blood Pressure 95/62 L 98/63 L 99/65 L Pulse Oximetry 98 97 96 11/26/17 18:30 11/26/17 19:00 11/26/17 19:15 Temperature Pulse Rate 85 86 Respiratory Rate 18 Blood Pressure 98/58 L 97/62 L Pulse Oximetry 96 96 93 L 11/26/17 19:30 11/26/17 20:00 11/26/17 20:30 Temperature 38.0 C H Pulse Rate 85 90 88 Respiratory Rate 18 Blood Pressure 104/61 99/57 L 99/66 L Pulse Oximetry 99 96 97 11/26/17 21:00 11/26/17 21:01 11/26/17 21:30 Temperature Pulse Rate 100 H 98 H 92 H Respiratory Rate Blood Pressure 140/64 125/73 Pulse Oximetry 96 90 L 100 11/26/17 22:00 11/26/17 22:30 11/26/17 23:00 Temperature Pulse Rate 90 83 80 Respiratory Rate Blood Pressure 108/59 L 106/62 108/64 Pulse Oximetry 94 L 91 L 95 11/26/17 23:30 11/27/17 00:00 11/27/17 00:12 Temperature 37.9 C H Pulse Rate 96 H 87 Respiratory Rate 18 18 Blood Pressure 111/80 109/61 Pulse Oximetry 100 96 94 L 11/27/17 00:30 11/27/17 01:00 11/27/17 01:30 Temperature Pulse Rate 86 82 79 Respiratory Rate Blood Pressure 104/59 L 105/60 110/62 Pulse Oximetry 93 L 94 L 96 11/27/17 02:00 11/27/17 02:30 11/27/17 03:00 Temperature Pulse Rate 82 80 81 Respiratory Rate Blood Pressure 116/67 109/66 103/59 L Pulse Oximetry 97 94 L 93 L 11/27/17 03:30 11/27/17 04:00 11/27/17 04:30 Temperature 38.0 C H Pulse Rate 79 100 H 91 H Respiratory Rate 18 Blood Pressure 103/60 112/70 117/72 Pulse Oximetry 95 95 100 11/27/17 05:00 11/27/17 05:25 11/27/17 05:30 Temperature Pulse Rate 85 84 95 H Respiratory Rate 13 Blood Pressure 102/55 L 100/57 L 100/55 L Pulse Oximetry 98 100 97 11/27/17 05:38 11/27/17 05:45 11/27/17 05:51 Temperature Pulse Rate 88 86 84 Respiratory Rate 16 19 Blood Pressure 108/59 L 101/57 L 109/59 L Pulse Oximetry 98 99 99 11/27/17 05:57 11/27/17 06:00 11/27/17 06:15 Temperature Pulse Rate 85 80 Respiratory Rate Blood Pressure 97/53 L 98/57 L Pulse Oximetry 100 93 L 95 11/27/17 06:30 11/27/17 06:45 11/27/17 07:00 Temperature Pulse Rate 79 79 78 Respiratory Rate Blood Pressure 101/57 L 102/59 L 99/59 L Pulse Oximetry 95 96 96 11/27/17 07:15 11/27/17 07:30 11/27/17 07:45 Temperature Pulse Rate 78 69 79 Respiratory Rate Blood Pressure 97/56 L 124/70 98/51 L Pulse Oximetry 95 100 96 11/27/17 08:00 Temperature 37.7 C H Pulse Rate 78 Respiratory Rate Blood Pressure 103/57 L Pulse Oximetry 99 Intake & Output 11/26/17 11/27/17 11/27/17 18:59 06:59 18:59 Intake Total 700 / 700 1865 / 1865 Output Total 1626 / 1626 995 / 995 76 / 76 Balance -926 / -926 870 / 870 -76 / -76 Weight 91 kg Intake: IV 700 / 700 1865 / 1865 Heparin/D5W 25,000 U/250 mL 25, 250 / 250 000 unit In 250 ml @ 1,700 UNITS/HR 17 mls/hr IV.CONT TITRATE PRN Rx#:[id number] Versed Inj 50 mg In 50 ml @ 2 50 / 50 100 / 100 MG/HR 2 mls/hr IV.CONT TITRATE PRN Rx#:[id number] Diprivan 1000 mg/100 ml Inj 1, 300 / 300 300 / 300 000 mg In 100 ml @ 5 MCG/KG/MIN 2.313 mls/hr IV.CONT TITRATE PRN Rx#:[id number] Activase Inj 50 MG In Sterile 50 / 50 Water for Inj 50 ML @ Per Protocol IV.SIG ONCE ONE Rx#: [id number] Zosyn 4.5 GM Premix 4.5 gm In 100 / 100 100 ml @ 200 mls/hr IV.SIG Q6H NAYELY Rx#:[id number] KCl 20 mEq Premix Inj 20 meq In 200 / 200 100 ml @ 50 mls/hr IV.SIG Q2H PRN Rx#:[id number] Vancomycin Inj 1,500 MG In NS 515 / 515 Inj 500 ML @ 250 mls/hr IV.SIG ONCE ONE Rx#:[id number] fentaNYL 10 mcg/mL Premix Drip 500 / 500 2,500 mcg In 250 ml @ 50 MCG/HR 5 mls/hr IV.SIG TITRATE PRN Rx #:[id number] Flolan (30,000 ng/mL) Neb 100 100 / 100 100 / 100 ML In NS Inj 0 ML @ 5 mls/hr NEB Q8H [facility] Rx#:[id number] Output: Urine Amount (Catheter) 1276 / 1276 595 / 595 76 / 76 Indwelling Urethral Catheter 1276 / 1276 595 / 595 76 / 76 Gastric Drainage 350 / 350 400 / 400 Orogastric Tube 350 / 350 400 / 400 Other: # Bowel Movements 0 Result Diagrams: 11/27/17 01:00 11/27/17 01:00 Objective Remarks: GENERAL: young male, lying in bed, intubated, sedated improved color and perfusion. HEENT: Normocephalic. Atraumatic. Pupils equal, round, reactive, conjugate. Mucous membranes are moist NECK: Trachea is midline. There is no JVD. CHEST: PC/AC peep 10, fio2 45%. coarse breath sounds, R>L. spo2 98%. CARDIOVASCULAR: normal rate, regular rhythm. sinus. ABDOMEN: Soft, nontender, nondistended. No guarding. MUSCULOSKELETAL: Pulses 2+. No peripheral edema. NEUROLOGICAL: RASS -3. deeply sedated. withdraws to pain Assessment and Plan - Assessment and Plan Plan: Assessment: 36yM with etoh withdraw syndrome now with severe life-threatening aspiration pneumonitis/pneumonia and massive pulmonary embolism causing life- threatening hypoxemia. now s/p systemic tpa with improved oxygenation. will start to wean inhaled epoprostanol today. will watch oral bleeding closely. remains critically ill, although some modest improvements in lung function. Plan by systems: Neurologic: Acute alcohol withdrawal syndrome Delirium tremens Acute agitated deliriumsevere Acute metabolic encephalopathy Frequent neurochecks Propofol, Versed, fentanyl for goal RASS -2 Avoid long-acting sedatives No weaning sedation today given severe hypoxemia Respiratory: Severe life-threatening massive pulmonary embolism s/p systemic TPA Severe aspiration pneumonitis/pneumonia Severe acute hypoxemia- slightly improving Acute hypoxic and hypercarbic respiratory failure Vent bundle Head of bed elevated Nebs Inhaled Flolan: start to wean today. s/p systemic TPA 10/2 change to APRV mode of ventilation 26/0, 5:1. very different pulmonary compliance between left and right lungs: need to protect left lung from barotrauma. Wean FiO2 for goal SPO2 greater than 90% No SBT or weaning mechanical ventilation until severe hypoxemia improves 2d echo pending. Cardiovascular: Submassive pulmonary embolism Systemic TPA 10/2 trop negative. 2D echo pending Heparin drip Renal: Acute kidney injury- improving. Secondary to shock from PE -- Strict I/Os FEN/GI: start tube feeds. Daily BMP, mag, phosphorus electrolyte replacement protocol Heme/ID: Severe aspiration pneumonia PE Send hypercoagulable labs Patient's father says that 6 months ago he had a new diagnosis of a PE, may be familial Cover empirically with vancomycin/zosyn send sputum, blood cultures Endocrine: hyperglycemia of critical illness -- SSI Prophylaxis: GI Prophylaxis pepcid DVT Prophylaxis -- SCDs heparin drip Lines: 11/26: left radial art line 102: right IJ TLC Dispo: remain in ICU. critically ill. This patient remains critically ill with one or more organ systems which are or may become a threat to life. I have spent in excess of 41 minutes discontinuously in the care and management of this patient. This time is exclusive of procedures, and includes, but is not limited to, evaluation of the patient, review of the medical record, discussions with family, consultants, nursing staff, or respiratory therapy, and documentation in the medical record. Procedures - Arterial Line Size (Gauge): 20
[2017-11-27 08:30] LABS: ABG Base Excess -2.6 mmol/L (-2-2); ABG PCO2 29 mmHg (38-42); ABG PO2 129 mmHG (61-120)
[2017-11-27] MEDS: Folic Acid 1 MG Tablet PO SCH (09:07)
[2017-11-27] MEDS: Sodium Chloride 0.9% 2 ML Flush BID IV.FLUSH SCH ×2 (09:07→20:28)
[2017-11-27] MEDS: Sodium Chloride 0.9% 2 ML Flush PRN IV.FLUSH (09:07)
[2017-11-27] MEDS: Senna/Docusate Sodium 8.6/50 MG Tablet PO SCH ×2 (09:08→20:27)
[2017-11-27] MEDS: Pantoprazole Inj 40 MG Vial IV.PUSH SCH (09:09)
[2017-11-27] MEDS: Chlorhexidine 0.12% Oral Kit 15 ML UDC OROPHARYNG SCH ×2 (09:10→20:28)
[2017-11-27] MEDS: Heparin - SQ 10,000 UNITS/ML Vial SQ SCH (09:34)
[2017-11-27] MEDS: Vancomycin Inj 2,000 MG in Sodium Chlor 0.9% Inj 500 ML IV.SIG SCH (12:29)
[2017-11-27] MEDS ORDERED: Epoprostenol (30,000/mL) Neb 60 ML in Sodium Chlor 0.9% Inj 40 ML NEB SCH (15:00)
--- NOTE | 2017-11-27 15:41 | ECHRPT ---
Indication: SHORTNESS OF BREATH CONCLUSIONS The left ventricular systolic function is normal with an estimated ejection fraction in the range of 60-65%. Normal left ventricular size. Wall thickness is normal. No regional wall motion abnormalities are present. BP: / HR: Rhythm: Sinus MEASUREMENTS (Male / Female) Normal Values Technical Quality:Fair 2D ECHO LV Diastolic Diameter PLAX 5.3 cm 4.2 - 5.9 / 3.9 - 5.3 cm LV Systolic Diameter PLAX 3.5 cm IVS Diastolic Thickness 0.8 cm 0.6 - 1.0 / 0.6 - 0.9 cm LVPW Diastolic Thickness 0.8 cm 0.6 - 1.0 / 0.6 - 0.9 cm LV Relative Wall Thickness 0.3 LVOT Diameter 2.1 cm LA Systolic Diameter LX 3.8 cm 3.0 - 4.0 / 2.7 - 3.8 cm M-MODE Aortic Root Diameter MM 2.3 cm LA Systolic Diameter MM 3.8 cm LA Ao Ratio MM 1.7 AV Cusp Separation MM 1.9 cm DOPPLER AV Peak Velocity 97.7 cm/s AV Peak Gradient 3.8 mmHg LVOT Peak Velocity 95.8 cm/s LVOT Peak Gradient 3.7 mmHg AV Area Cont Eq pk 3.4 cm MV Area PHT 3.8 cm Mitral E Point Velocity 76.5 cm/s Mitral A Point Velocity 63.2 cm/s Mitral E to A Ratio 1.2 LV E' Lateral Velocity 6.1 cm/s Mitral E to LV E' Lateral Ratio 12.5 LV E' Septal Velocity 8.8 cm/s Mitral E to LV E' Septal Ratio 8.7 FINDINGS LEFT VENTRICLE The left ventricular systolic function is normal with an estimated ejection fraction in the range of 60-65%. Normal left ventricular size. Wall thickness is normal. No regional wall motion abnormalities are present. RIGHT VENTRICLE Normal right ventricular size and systolic function. LEFT ATRIUM The left atrial size is normal. RIGHT ATRIUM The right atrial size is normal. ATRIAL SEPTUM Normal atrial septal thickness without atrial level shunting by limited color doppler interrogation. AORTA The aortic root and proximal ascending aorta are normal in size on limited imaging. MITRAL VALVE Structurally normal mitral valve. No mitral valve stenosis or regurgitation. AORTIC VALVE Trileaflet aortic valve. No aortic valve stenosis or regurgitation. TRICUSPID VALVE Structurally normal tricuspid valve. No tricuspid valve stenosis or regurgitation. PULMONARY VALVE The pulmonary valve is not well visualized. VESSELS The inferior vena cava is normal in size. PERICARDIUM No pericardial effusion. Chucky Mathew MD, FACC, FSCAI (Electronically Signed) Final Date:27 November 2017 15:41
[2017-11-27] MEDS ORDERED: Pharmacy Ordered Lab Info OTHER ONE (22:45)
[2017-11-27] MEDS ORDERED: Epoprostenol (30,000/mL) Neb 20 ML in Sodium Chlor 0.9% Inj 80 ML NEB SCH (23:00)
[2017-11-28] MEDS ORDERED: HYDROmorphone PF Inj 2 MG/ML Vial IV.PUSH ONE (00:43)
[2017-11-28] MEDS: Vancomycin Inj 2,000 MG in Sodium Chlor 0.9% Inj 500 ML IV.SIG SCH ×2 (00:51→12:16)
[2017-11-28] MEDS: Midazolam 50 MG/50 ML Inj 50 MG/50 ML BAG IV.CONT PRN (00:51)
[2017-11-28] MEDS: Insulin NovoLIN Regular Correctional Sugar Inj SQ SCH ×4 (00:52→19:07)
[2017-11-28] MEDS: Oral Hygiene Kit OROPHARYNG SCH ×4 (00:52→16:27)
[2017-11-28] MEDS: Epoprostenol (30,000/mL) Neb 100 ML in Sodium Chlor 0.9% Inj 0 ML NEB SCH (02:09)
[2017-11-28] MEDS: Propofol 1000 mg/100 ml Inj 1,000 MG/100 ML BOTTLE IV.CONT PRN ×7 (02:10→22:57)
[2017-11-28] MEDS: Piperacil/Tazo 4.5 GM Premix 4.5 GM/100 ML BAG IV.SIG SCH ×4 (02:56→20:19)
[2017-11-28] MEDS: fentaNYL 10 mcg/mL Premix Drip 2,500 MCG/250 ML BAG IV.SIG PRN ×3 (03:11→22:39)
[2017-11-28 04:37] LABS: Hematocrit 33.1 % (39.0-51.0); Hemoglobin 11.4 gm/dL (13.0-17.0); Mean Corpuscular HGB Conc 34.5 % (32.0-36.0); Mean Corpuscular Hemoglobin 30.1 pg (27.0-34.0); Mean Corpuscular Volume 87.1 fL (80.0-100.0); Mean Platelet Volume 9.9 fL (7.0-11.0); Platelet Count 138 th/mm3 (150-450); Red Cell Distribution Width 15.3 % (11.6-17.2); White Blood Count 7.9 th/mm3 (4.0-11.0)
[2017-11-28 04:42] LABS: Activated Partial Thrombo Time 36.4 sec (24.3-30.1); INR 0.9 Ratio; Prothrombin Time 9.5 sec (9.8-11.6)
[2017-11-28 05:03] LABS: Alanine Aminotransferase 104 U/L (12-78); Albumin 2.2 g/dL (3.4-5.0); Alkaline Phosphatase 54 U/L (45-117); Anion Gap 10 meq/L (5-15); Aspartate Aminotransferase 111 U/L (15-37); Blood Urea Nitrogen 7 mg/dL (7-18); Calcium 7.3 mg/dL (8.5-10.1); Carbon Dioxide 25.3 meq/L (21.0-32.0); Chloride 104 meq/L (98-107); Glomerular Filtration Rate Greater Than 89 mL/min (>89); Glucose,Random 160 mg/dL (74-106); Magnesium 2.2 mg/dL (1.5-2.5); Sodium 139 meq/L (136-145)
[2017-11-28 05:09] LABS: Potassium 2.9 meq/L (3.5-5.1)
[2017-11-28 05:24] LABS: ABG Base Excess -1.1 mmol/L (-2-2); ABG PCO2 31 mmHg (38-42); ABG PO2 160 mmHG (61-120)
[2017-11-28] MEDS: Chlorhexidine Gluconate 2% 1 Pack (2 Cloths) TOPICAL SCH (05:41)
[2017-11-28] MEDS: Potassium Phosphate Inj 30 MMOL in Sodium Chlor 0.9% Inj 250 ML IV.SIG PRN (06:01)
[2017-11-28] MEDS: Heparin Drip 25,000 UNIT/250 ML BAG IV.CONT PRN ×2 (07:24→20:49)
[2017-11-28] MEDS: Chlorhexidine 0.12% Oral Kit 15 ML UDC OROPHARYNG SCH ×2 (07:52→20:19)
[2017-11-28] MEDS: Potassium Chlor 40 mEq Premix 40 MEQ/100 ML PIGGYBACK IV.SIG PRN (07:52)
--- NOTE | 2017-11-28 08:11 | P.PNCC ---
Subjective Subjective Remarks/Hospital Course: The patient is a 36-year-old male with a history of ETOH abuse, who was at a [facility] for alcohol detoxification, became confused, hallucinating and possibly going into alcohol withdrawal. EVAC found him tachycardic, hypertensive. In the ER, he was given Ativan 10 mg total, Benadryl 50 mg and ketamine. His laboratory data is significant for elevated liver enzymes with AST 154, ALT 158 and total bilirubin 1.8. Urine drug screen is pending and his serum alcohol level is less than 3. Chest x-ray in the ED showed no acute findings identified. When seen, the patient is tachycardic with heart rate in the 120s, hypertensive with blood pressure 156/85. He is on room air oxygen with a saturation of 98-100%. History was obtained from reviewing medical records, as the patient is a poor historian due to his mental status. 11/25 Patient was intubated yesterday sedated with Diprivan and Fentanyl. Afebrile. 11/26: persistently hypoxic overnight requiring 100% fio2. this AM, CT chest demonstrates large clot burden right-sided PE as well as severe airspace disease on the right, concerning for aspiration pneumonitis/pneumonia. 11/27: oxygenation improving today. some oral bleeding persists. ct head negative for bleed. 11/28: hypoxia continues to improve slowly. fio2 down to 40%. weaning inhaled flolan. still some nasal bleeding, but this continues to improve as well. awake following commands, but now quite agitated at times. Objective Vital Signs / I&O: Vital Signs 11/27/17 07:45 11/27/17 08:00 11/27/17 08:04 Temperature 37.7 C H Pulse Rate 79 78 Respiratory Rate 22 Blood Pressure 98/51 L 103/57 L Pulse Oximetry 96 99 97 11/27/17 08:15 11/27/17 08:30 11/27/17 08:45 Temperature Pulse Rate 79 79 76 Respiratory Rate Blood Pressure 97/54 L 101/56 L 107/62 Pulse Oximetry 97 99 99 11/27/17 09:00 11/27/17 09:15 11/27/17 09:30 Temperature Pulse Rate 79 80 75 Respiratory Rate Blood Pressure 96/59 L 95/58 L 98/58 L Pulse Oximetry 98 96 98 11/27/17 09:45 11/27/17 10:00 11/27/17 10:15 Temperature Pulse Rate 74 78 78 Respiratory Rate Blood Pressure 103/57 L 102/59 L 98/56 L Pulse Oximetry 98 100 97 11/27/17 10:30 11/27/17 10:45 11/27/17 11:00 Temperature Pulse Rate 80 76 77 Respiratory Rate Blood Pressure 99/57 L 107/63 107/64 Pulse Oximetry 96 100 100 11/27/17 11:15 11/27/17 11:30 11/27/17 11:44 Temperature Pulse Rate 79 83 Respiratory Rate 11 L Blood Pressure 110/65 113/66 Pulse Oximetry 100 100 100 11/27/17 11:45 11/27/17 12:00 11/27/17 12:15 Temperature 37.5 C Pulse Rate 86 93 H 96 H Respiratory Rate Blood Pressure 114/66 111/66 112/69 Pulse Oximetry 100 100 100 11/27/17 12:30 11/27/17 12:45 11/27/17 13:00 Temperature Pulse Rate 92 H 101 H 100 H Respiratory Rate Blood Pressure 111/64 122/66 115/59 L Pulse Oximetry 100 99 96 11/27/17 14:00 11/27/17 15:00 11/27/17 15:30 Temperature Pulse Rate 78 86 Respiratory Rate 22 Blood Pressure 106/60 112/71 Pulse Oximetry 97 100 100 11/27/17 16:00 11/27/17 17:00 11/27/17 18:00 Temperature 38.7 C H Pulse Rate 100 H 94 H 97 H Respiratory Rate Blood Pressure 118/65 115/65 115/73 Pulse Oximetry 98 94 L 95 11/27/17 19:00 11/27/17 20:00 11/27/17 21:00 Temperature 37.1 C Pulse Rate 80 77 74 Respiratory Rate Blood Pressure 133/73 110/64 112/61 Pulse Oximetry 100 97 95 11/27/17 21:12 11/27/17 22:00 11/27/17 23:00 Temperature Pulse Rate 68 70 Respiratory Rate 12 Blood Pressure 114/74 110/65 Pulse Oximetry 100 100 100 11/28/17 00:00 11/28/17 00:20 11/28/17 01:00 Temperature 37.0 C Pulse Rate 105 H 93 H Respiratory Rate 43 H Blood Pressure 136/75 113/58 L Pulse Oximetry 94 L 92 L 11/28/17 02:00 11/28/17 03:00 11/28/17 04:00 Temperature Pulse Rate 75 70 65 Respiratory Rate Blood Pressure 106/58 L 108/64 110/65 Pulse Oximetry 97 96 95 11/28/17 05:00 11/28/17 06:00 Temperature Pulse Rate 62 64 Respiratory Rate Blood Pressure 104/65 121/66 Pulse Oximetry 95 100 Intake & Output 11/27/17 11/28/17 11/28/17 18:59 06:59 18:59 Intake Total 2022 / 2022 2933 / 2933 Output Total 559 / 559 1065 / 1065 Balance 1464 / 1464 1868 / 1868 Weight 94 kg Intake: IV 1660 / 1660 2240 / 2240 Heparin/D5W 25,000 U/250 mL 25, 250 / 250 250 / 250 000 unit In 250 ml @ 1,700 UNITS/HR 17 mls/hr IV.CONT TITRATE PRN Rx#:[id number] Versed Inj 50 mg In 50 ml @ 2 50 / 50 MG/HR 2 mls/hr IV.CONT TITRATE PRN Rx#:[id number] Diprivan 1000 mg/100 ml Inj 1, 400 / 400 300 / 300 000 mg In 100 ml @ 5 MCG/KG/MIN 2.313 mls/hr IV.CONT TITRATE PRN Rx#:[id number] Ofirmev Inj 1,000 mg In 100 ml 100 / 100 @ 400 mls/hr IV.SIG NOW ONE Rx# :[id number] Zosyn 4.5 GM Premix 4.5 gm In 200 / 200 300 / 300 100 ml @ 200 mls/hr IV.SIG Q6H [facility] Rx#:[id number] Potassium Phosphate Inj 30 MMOL 260 / 260 In NS Inj 250 ML @ 42 mls/hr IV.SIG UNSCH PRN Rx#:[id number] Vancomycin Inj 1,000 MG In NS 250 / 250 Inj 250 ML @ 250 mls/hr IV.SIG Q8H [facility] Rx#:[id number] Vancomycin Inj 2,000 MG In NS 1040 / 1040 Inj 500 ML @ 250 mls/hr IV.SIG Q12H [facility] Rx#:[id number] fentaNYL 10 mcg/mL Premix Drip 250 / 250 250 / 250 2,500 mcg In 250 ml @ 50 MCG/HR 5 mls/hr IV.SIG TITRATE PRN Rx #:[id number] Flolan (30,000 ng/mL) Neb 100 0 / 0 ML In NS Inj 0 ML @ 5 mls/hr NEB Q8H [facility] Rx#:[id number] Tube Feeding 263 / 263 693 / 693 Water Bolus Amount 100 / 100 Output: Urine Amount (Catheter) 559 / 559 1065 / 1065 Indwelling Urethral Catheter 559 / 559 1065 / 1065 Result Diagrams: 11/28/17 04:08 11/28/17 04:08 Objective Remarks: GENERAL: young male, lying in bed, intubated, sedated improved color and perfusion. HEENT: Normocephalic. Atraumatic. Pupils equal, round, reactive, conjugate. Mucous membranes are moist NECK: Trachea is midline. There is no JVD. CHEST: APRV 26/0 5:1, fio2 40% coarse breath sounds, R>L. spo2 100%. CARDIOVASCULAR: normal rate, regular rhythm. sinus. ABDOMEN: Soft, nontender, nondistended. No guarding. MUSCULOSKELETAL: Pulses 2+. No peripheral edema. NEUROLOGICAL: RASS -2. arouses and follows commands. Assessment and Plan - Assessment and Plan Plan: Assessment: 36yM with etoh withdraw syndrome now with severe life-threatening aspiration pneumonitis/pneumonia and massive pulmonary embolism causing life- threatening hypoxemia. Clinically improving from a hypoxia standpoint, but agitation is now a significant concern and prevents successful weaning from mechanical ventilation. remains critically ill. Plan by systems: Neurologic: Acute alcohol withdrawal syndrome Delirium tremens Acute agitated deliriumsevere, worsening. Acute metabolic encephalopathy Frequent neurochecks start oxycodone 10mg po q4h for pain start seroquel 100mg po q8h for agitation breakthrough haldol 5mg iv q1h prn. d/c versed drip continue propofol, fentanyl for goal RASS -2. d/c CIWA Avoid long-acting sedatives up in stretcher chair position in bed. Respiratory: Severe life-threatening massive pulmonary embolism s/p systemic TPA Severe aspiration pneumonitis/pneumonia Severe acute hypoxemia- slightly improving Acute hypoxic and hypercarbic respiratory failure Vent bundle Head of bed elevated Nebs finish flolan wean. s/p systemic TPA 10/2 decrease phigh on APRV to 20/0, 7:1. Wean FiO2 for goal SPO2 greater than 90% No SBT or weaning mechanical ventilation until severe hypoxemia improves 2d echo pending. Cardiovascular: Submassive pulmonary embolism Systemic TPA 11/26 trop negative. 2D echo: EF 65%, no TR, normal RV size and function. dilated IVC. Heparin drip Renal: Acute kidney injury- improving. Secondary to shock from PE -- Strict I/Os FEN/GI: Hypokalemia tube feeds. Daily BMP, mag, phosphorus electrolyte replacement protocol start gentle diuresis: lasix 40 iv x 1 Heme/ID: Severe aspiration pneumonia PE Send hypercoagulable labs Patient's father says that 6 months ago he had a new diagnosis of a PE, may be familial 11/26: sputum culture: beta strep 11/26: blood cultures: NGTD. d/c vancomycin. continue zosyn. Endocrine: hyperglycemia of critical illness -- SSI Prophylaxis: GI Prophylaxis pepcid DVT Prophylaxis -- SCDs heparin drip Lines: 11/26: left radial art line 11/26: right IJ TLC Dispo: remain in ICU. critically ill. This patient remains critically ill with one or more organ systems which are or may become a threat to life. I have spent in excess of 32 minutes discontinuously in the care and management of this patient. This time is exclusive of procedures, and includes, but is not limited to, evaluation of the patient, review of the medical record, discussions with family, consultants, nursing staff, or respiratory therapy, and documentation in the medical record. Procedures - Arterial Line Size (Gauge): 20
[2017-11-28] MEDS: QUEtiapine 100 MG Tablet PO SCH ×2 (09:07→16:27)
[2017-11-28] MEDS: Folic Acid 1 MG Tablet PO SCH (09:08)
[2017-11-28] MEDS: Pantoprazole Inj 40 MG Vial IV.PUSH SCH (09:08)
[2017-11-28] MEDS: Senna/Docusate Sodium 8.6/50 MG Tablet PO SCH ×2 (09:09→20:19)
[2017-11-28] MEDS: Sodium Chloride 0.9% 2 ML Flush BID IV.FLUSH SCH ×2 (09:09→20:19)
[2017-11-28] MEDS ORDERED: Pharmacy Ordered Lab Info OTHER ONE (11:45)
[2017-11-28 15:53] LABS: Homocysteine (Cardiovascular) 7.4 umol/L (<11.4)
[2017-11-28 17:24] LABS: Potassium 3.3 meq/L (3.5-5.1)
[2017-11-28 17:25] LABS: Phosphorus 2.5 mg/dL (2.5-4.9)
[2017-11-28] MEDS: Haloperidol Inj 5 MG/ML Ampul IV.PUSH PRN (21:17)
[2017-11-28 23:54] LABS: Dil Russell Viper Venom Conf ( POSITIVE (NEGATIVE); Dil Russell Viper Venom Time M CORRECTED (CORRECTED); Lupus Anticoagulant PTT Screen 35 seconds (< OR = 40)
[2017-11-29] MEDS: Haloperidol Inj 5 MG/ML Ampul IV.PUSH PRN ×2 (00:24→03:30)
[2017-11-29] MEDS ORDERED: Dexmedetomidine Inj 200 MCG in Sodium Chlor 0.9% Inj 48 ML IV.CONT PRN (00:37)
[2017-11-29] MEDS: Insulin NovoLIN Regular Correctional Sugar Inj SQ SCH ×4 (01:37→17:19)
[2017-11-29] MEDS: Oral Hygiene Kit OROPHARYNG SCH ×4 (01:37→15:42)
[2017-11-29] MEDS: Piperacil/Tazo 4.5 GM Premix 4.5 GM/100 ML BAG IV.SIG SCH ×4 (02:56→20:13)
[2017-11-29] MEDS: Chlorhexidine Gluconate 2% 1 Pack (2 Cloths) TOPICAL SCH (04:09)
[2017-11-29 06:14] LABS: Hematocrit 39.5 % (39.0-51.0); Hemoglobin 13.3 gm/dL (13.0-17.0); Mean Corpuscular HGB Conc 33.6 % (32.0-36.0); Mean Corpuscular Hemoglobin 29.6 pg (27.0-34.0); Mean Corpuscular Volume 88.3 fL (80.0-100.0); Mean Platelet Volume 9.7 fL (7.0-11.0); Platelet Count 205 th/mm3 (150-450); Red Blood Count 4.48 mil/mm3 (4.50-5.90); Red Cell Distribution Width 15.3 % (11.6-17.2); White Blood Count 9.9 th/mm3 (4.0-11.0)
[2017-11-29 06:20] LABS: INR 0.9 Ratio; Prothrombin Time 9.3 sec (9.8-11.6)
[2017-11-29 06:29] LABS: Albumin 2.7 g/dL (3.4-5.0); Anion Gap 11 meq/L (5-15); Aspartate Aminotransferase 93 U/L (15-37); Blood Urea Nitrogen 6 mg/dL (7-18); Calcium 8.8 mg/dL (8.5-10.1); Carbon Dioxide 28.8 meq/L (21.0-32.0); Chloride 100 meq/L (98-107); Glomerular Filtration Rate Greater Than 89 mL/min (>89); Glucose,Random 120 mg/dL (74-106); Magnesium 1.8 mg/dL (1.5-2.5); Sodium 140 meq/L (136-145)
[2017-11-29 06:33] LABS: Alanine Aminotransferase 118 U/L (12-78); Alkaline Phosphatase 74 U/L (45-117); Phosphorus 2.3 mg/dL (2.5-4.9); Total Protein 7.9 g/dL (6.4-8.2)
[2017-11-29] MEDS ORDERED: Propofol Inj 500 MG/50 ML Vial ONE (06:57)
[2017-11-29] MEDS: Potassium Chlor 40 mEq Premix 40 MEQ/100 ML PIGGYBACK IV.SIG PRN ×3 (09:00→22:14)
[2017-11-29] MEDS: Propofol 1000 mg/100 ml Inj 1,000 MG/100 ML BOTTLE IV.CONT PRN ×9 (09:08→23:38)
[2017-11-29] MEDS: Chlorhexidine 0.12% Oral Kit 15 ML UDC OROPHARYNG SCH ×2 (09:09→20:13)
[2017-11-29] MEDS: Pantoprazole Inj 40 MG Vial IV.PUSH SCH (09:09)
[2017-11-29] MEDS: Sodium Chloride 0.9% 2 ML Flush BID IV.FLUSH SCH ×2 (09:11→20:13)
[2017-11-29] MEDS: Folic Acid 1 MG Tablet PO SCH (09:12)
[2017-11-29] MEDS: Senna/Docusate Sodium 8.6/50 MG Tablet PO SCH ×2 (09:12→20:13)
--- NOTE | 2017-11-29 09:19 | XR ---
EXAM DATE: 11/29/2017 12:00 AM EDT AGE/SEX: 36 years / Male INDICATIONS: Respiratory failure. OG tube. CLINICAL DATA: This is the patient's subsequent encounter. Patient reports that signs and symptoms h ave been present for 1 day and indicates a pain score of Nonresponsive. MEDICAL/SURGICAL HISTORY: Non-responsive. Non-responsive. COMPARISON: [facility], CHEST 1V SINGLE AP, 11/27/2017. . FINDINGS: ET tube and nasogastric tube in good position. Central line in good position. Interval improvement wi th less interstitial alveolar edema. Minimal parental changes remain right base. CONCLUSION: Interval improvement as above. Electronically signed by: Shon Ivory MD 11/29/2017 9:17 AM EDT
[2017-11-29] MEDS: Albumin Human 25% Inj 100 ML IV.SIG SCH ×2 (11:22→17:17)
[2017-11-29] MEDS: QUEtiapine 100 MG Tablet PO SCH ×2 (11:26)
--- NOTE | 2017-11-29 13:03 | P.PNCC ---
Subjective Subjective Remarks/Hospital Course: The patient is a 36-year-old male with a history of ETOH abuse, who was at a [facility] for alcohol detoxification, became confused, hallucinating and possibly going into alcohol withdrawal. EVAC found him tachycardic, hypertensive. In the ER, he was given Ativan 10 mg total, Benadryl 50 mg and ketamine. His laboratory data is significant for elevated liver enzymes with AST 154, ALT 158 and total bilirubin 1.8. Urine drug screen is pending and his serum alcohol level is less than 3. Chest x-ray in the ED showed no acute findings identified. When seen, the patient is tachycardic with heart rate in the 120s, hypertensive with blood pressure 156/85. He is on room air oxygen with a saturation of 98-100%. History was obtained from reviewing medical records, as the patient is a poor historian due to his mental status. 11/25 Patient was intubated yesterday sedated with Diprivan and Fentanyl. Afebrile. 2: persistently hypoxic overnight requiring 100% fio2. this AM, CT chest demonstrates large clot burden right-sided PE as well as severe airspace disease on the right, concerning for aspiration pneumonitis/pneumonia. 11/27: oxygenation improving today. some oral bleeding persists. ct head negative for bleed. 11/28: hypoxia continues to improve slowly. fio2 down to 40%. weaning inhaled flolan. still some nasal bleeding, but this continues to improve as well. awake following commands, but now quite agitated at times. 5: self-extubated overnight, on my eval severely hypoxemic and agitated, pulling off NRB. emergently reintubated. volume overloaded and diuresing. Objective Vital Signs / I&O: Vital Signs 11/28/17 13:00 11/28/17 14:00 11/28/17 15:00 Temperature Pulse Rate 83 75 76 Respiratory Rate Blood Pressure 97/55 L 96/55 L 93/50 L Pulse Oximetry 97 95 93 L 11/28/17 16:00 11/28/17 16:24 11/28/17 17:00 Temperature 37.8 C H Pulse Rate 94 H 95 H Respiratory Rate 24 23 Blood Pressure 139/79 125/68 Pulse Oximetry 100 97 100 11/28/17 18:00 11/28/17 19:00 11/28/17 20:00 Temperature 38.3 C H Pulse Rate 103 H 85 135 H Respiratory Rate 23 Blood Pressure 109/55 L 109/57 L 118/74 Pulse Oximetry 94 L 93 L 95 11/28/17 20:27 11/28/17 21:00 11/28/17 22:00 Temperature Pulse Rate 99 H 80 Respiratory Rate 25 H Blood Pressure 121/60 107/55 L Pulse Oximetry 94 L 92 L 94 L 11/28/17 23:00 11/28/17 23:45 11/29/17 00:00 Temperature 38.0 C H Pulse Rate 87 77 Respiratory Rate 21 20 Blood Pressure 115/66 133/73 Pulse Oximetry 96 95 100 11/29/17 01:00 11/29/17 01:40 11/29/17 02:00 Temperature Pulse Rate 86 108 H Respiratory Rate Blood Pressure 119/67 135/76 Pulse Oximetry 95 100 96 11/29/17 03:00 11/29/17 04:00 11/29/17 05:00 Temperature 38.1 C H Pulse Rate 102 H 94 H 88 Respiratory Rate Blood Pressure 136/81 143/80 H 144/72 H Pulse Oximetry 88 L 90 L 11/29/17 06:00 11/29/17 07:00 11/29/17 11:18 Temperature Pulse Rate 85 Respiratory Rate 10 L 10 L Blood Pressure Pulse Oximetry 86 L 98 Intake & Output 11/28/17 11/29/17 11/29/17 18:59 06:59 18:59 Intake Total 2731 / 2731 1000 / 1000 800 / 800 Output Total 3600 / 3600 4900 / 4900 Balance -869 / -869 -3900 / -3900 800 / 800 Weight 89 kg Intake: IV 1959 / 1959 1000 / 1000 800 / 800 Precedex Inj 200 MCG In NS Inj 50 / 50 48 ML @ 0.2 MCG/KG/HR 4.7 mls/ hr IV.CONT TITRATE PRN Rx#: [id number] Heparin/D5W 25,000 U/250 mL 25, 250 / 250 000 unit In 250 ml @ 1,800 UNITS/HR 18 mls/hr IV.CONT TITRATE PRN Rx#:[id number] Versed Inj 50 mg In 50 ml @ 2 30 / 30 MG/HR 2 mls/hr IV.CONT TITRATE PRN Rx#:[id number] Diprivan 1000 mg/100 ml Inj 1, 300 / 300 300 / 300 300 / 300 000 mg In 100 ml @ 5 MCG/KG/MIN 2.313 mls/hr IV.CONT TITRATE PRN Rx#:[id number] Flexbumin 25% Inj 100 ML @ 12.5 100 / 100 mls/hr IV.SIG Q8H [facility] Rx#: [id number] Zosyn 4.5 GM Premix 4.5 gm In 200 / 200 200 / 200 100 / 100 100 ml @ 200 mls/hr IV.SIG Q6H [facility] Rx#:[id number] KCl 40 mEq Premix Inj 40 meq In 100 / 100 100 ml @ 25 mls/hr IV.SIG Q2H PRN Rx#:[id number] Potassium Phosphate Inj 30 MMOL 260 / 260 In NS Inj 250 ML @ 42 mls/hr IV.SIG UNSCH PRN Rx#:[id number] Vancomycin Inj 2,000 MG In NS 520 / 520 Inj 500 ML @ 250 mls/hr IV.SIG Q12H [facility] Rx#:[id number] fentaNYL 10 mcg/mL Premix Drip 250 / 250 250 / 250 250 / 250 2,500 mcg In 250 ml @ 50 MCG/HR 5 mls/hr IV.SIG TITRATE PRN Rx #:[id number] Flolan (30,000 ng/mL) Neb 100 100 / 100 ML In NS Inj 0 ML @ 5 mls/hr NEB Q8H [facility] Rx#:[id number] Tube Feeding 771 / 771 Output: Urine Amount (Catheter) 3600 / 3600 4900 / 4900 Indwelling Urethral Catheter 3600 / 3600 4900 / 4900 Other: Date of Last Bowel Movement 11/29/17 # Bowel Movements 2 Result Diagrams: 11/29/17 05:40 11/29/17 05:40 Objective Remarks: GENERAL: young male, lying in bed, agitated, pulling at lines. HEENT: Normocephalic. Atraumatic. Pupils equal, round, reactive, conjugate. Mucous membranes are moist NECK: Trachea is midline. +JVD. CHEST: on NRB on my initial evaluation- spo2 83% tachypneic and in distress. CARDIOVASCULAR: tachycardic rate, regular rhythm. sinus. ABDOMEN: Soft, nontender, nondistended. No guarding. MUSCULOSKELETAL: Pulses 2+. 1+ peripheral edema. NEUROLOGICAL: RASS +2. agitated. not following commands. CAM+. Assessment and Plan - Assessment and Plan Plan: Assessment: 36yM with etoh withdraw syndrome now with severe life-threatening aspiration pneumonitis/pneumonia and massive pulmonary embolism causing life- threatening hypoxemia. s/p self-extubation this morning and now with severe agitation and recurrent hypoxemia s/p emergent reintubation. place back on APRV for recruitment. continue diuresis efforts. on maximal amounts of sedation and anti-delirium medication, and unclear which medication is having the most effect - we will pull him off all sedation and leave him on single-agent propofol and allow other pharmacologic effects to metabolize and re-evaluate agitation tomorrow. critically ill and requiring reintubation. Plan by systems: Neurologic: Acute alcohol withdrawal syndrome Delirium tremens Acute agitated deliriumsevere, worsening. Acute metabolic encephalopathy Frequent neurochecks d/c oxycodone, seroquel, haldol, versed, precedex, fentanyl. propofol for goal RASS -2. may titrate up to 150 mcg/kg/min (severe etoh dependence and OLIVA tolerant). allow other medications to metabolize and re-evaluate agitation. Avoid long-acting sedatives May require tracheostomy for this severe level of agitation if no improvements are seen. Respiratory: Severe life-threatening massive pulmonary embolism s/p systemic TPA Severe aspiration pneumonitis/pneumonia Severe acute hypoxemia- recurrent Acute hypoxic and hypercarbic respiratory failure self-extubated 11/29, reintubated 11/29 for severe hypoxia Vent bundle Head of bed elevated Nebs s/p systemic TPA 11/26 place back on APRV mode of ventilation. Wean FiO2 for goal SPO2 greater than 90% No SBT or weaning mechanical ventilation until severe recurrent hypoxemia improves Cardiovascular: Submassive pulmonary embolism Systemic TPA 11/26 trop negative. 2D echo: EF 65%, no TR, normal RV size and function. dilated IVC. transition to therapeutic lovenox. Renal: Acute kidney injury- improving. Secondary to shock from PE -- Strict I/Os FEN/GI: Hypokalemia Acute intravascular volume overload tube feeds. Daily BMP, mag, phosphorus electrolyte replacement protocol continue diuresis with lasix. Heme/ID: Severe aspiration pneumonia PE hypercoagulable labs pending Patient's father says that 6 months ago he had a new diagnosis of a PE, may be familial 10/2: sputum culture: beta strep 10/2: blood cultures: NGTD. continue zosyn. patient may have had second episode of aspiration today during self-extubation. continue empiric abx for now. Endocrine: hyperglycemia of critical illness -- SSI Prophylaxis: GI Prophylaxis pepcid DVT Prophylaxis -- SCDs heparin drip: transition to therapeutic lovenox. Lines: 10/2: left radial art line 10/2: right IJ TLC Dispo: remain in ICU. critically ill. This patient remains critically ill with one or more organ systems which are or may become a threat to life. I have spent in excess of 48 minutes discontinuously in the care and management of this patient. This time is exclusive of procedures, and includes, but is not limited to, evaluation of the patient, review of the medical record, discussions with family, consultants, nursing staff, or respiratory therapy, and documentation in the medical record. Procedures - Arterial Line Size (Gauge): 20 - Intubation Time out performed: Yes Sedative: other (propofol) Mg given: 200 Paralytic: rocuronium Mg given: 100 Laryngoscope: Hutchison (#2) ET tube size: 8.5 ET tube uncuffed: No Tube secured depth (cm): 24 Tube secured location: teeth Tube placement confirmation: visualized tube passing through cords, equal breath sounds bilaterally, no breath sounds over epigastrium, confirmation by capnometry Patient tolerated procedure: well Intubation complications: none Additional comments: Endotracheal Intubation Diagnosis: Acute hypoxic respiratory failure Indications: Acute hypoxic respiratory failure Consent: Emergent Anesthesia: Propofol 200 mg IV, rocuronium 100 mg IV. Description of the Procedure: The patient was positioned in the sniffing position. Pre-oxygenation was performed using a [id number]. Anesthesia was induced via rapid sequence. A Hutchison #2 was used for laryngoscopy and a Grade I view was obtained. A 8.5 cuffed endotracheal tube was inserted atraumatically through the vocal cords. Confirmation of correct endotracheal tube placement was made by equal and bilateral breath sounds and colorimetric CO2 detection. The endotracheal tube was secured at 24 cm at the teeth. There were no immediate complications noted. The patient remained hemodynamically stable throughout the procedure. A chest x-ray has been ordered. I personally performed the procedure.
[2017-11-29] MEDS: Heparin Drip 25,000 UNIT/250 ML BAG IV.CONT PRN ×2 (14:18→22:51)
[2017-11-29 17:00] LABS: Factor V Leiden Mutation Negative (Negative); Protein C Antigen 57 % (70-150)
[2017-11-30] MEDS: Propofol 1000 mg/100 ml Inj 1,000 MG/100 ML BOTTLE IV.CONT PRN ×6 (00:51→12:05)
[2017-11-30] MEDS: Oral Hygiene Kit OROPHARYNG SCH ×4 (00:51→18:51)
[2017-11-30] MEDS: Potassium Chlor 40 mEq Premix 40 MEQ/100 ML PIGGYBACK IV.SIG PRN ×3 (00:52→13:15)
[2017-11-30] MEDS: Insulin NovoLIN Regular Correctional Sugar Inj SQ SCH ×4 (01:55→18:51)
[2017-11-30] MEDS: Albumin Human 25% Inj 100 ML IV.SIG SCH (02:20)
[2017-11-30] MEDS: Piperacil/Tazo 4.5 GM Premix 4.5 GM/100 ML BAG IV.SIG SCH ×4 (02:20→20:15)
[2017-11-30 05:45] LABS: Hemoglobin 12.1 gm/dL (13.0-17.0); Mean Corpuscular HGB Conc 33.5 % (32.0-36.0); Mean Corpuscular Hemoglobin 29.8 pg (27.0-34.0); Mean Corpuscular Volume 88.9 fL (80.0-100.0); Platelet Count 236 th/mm3 (150-450); Red Blood Count 4.05 mil/mm3 (4.50-5.90); Red Cell Distribution Width 15.9 % (11.6-17.2); White Blood Count 9.6 th/mm3 (4.0-11.0)
[2017-11-30 06:00] LABS: Activated Partial Thrombo Time 36.2 sec (24.3-30.1); Prothrombin Time 9.8 sec (9.8-11.6)
[2017-11-30 06:26] LABS: Alanine Aminotransferase 68 U/L (12-78); Albumin 3.5 g/dL (3.4-5.0); Alkaline Phosphatase 53 U/L (45-117); Anion Gap 16 meq/L (5-15); Aspartate Aminotransferase 34 U/L (15-37); Blood Urea Nitrogen 11 mg/dL (7-18); Calcium 8.9 mg/dL (8.5-10.1); Carbon Dioxide 19.2 meq/L (21.0-32.0); Chloride 103 meq/L (98-107); Glomerular Filtration Rate Greater Than 89 mL/min (>89); Glucose,Random 108 mg/dL (74-106); Magnesium 2.1 mg/dL (1.5-2.5); Phosphorus 4.2 mg/dL (2.5-4.9); Sodium 138 meq/L (136-145); Total Protein 8.4 g/dL (6.4-8.2)
[2017-11-30 06:29] LABS: Potassium 2.8 meq/L (3.5-5.1)
[2017-11-30] MEDS: Chlorhexidine 0.12% Oral Kit 15 ML UDC OROPHARYNG SCH ×2 (09:34→20:15)
[2017-11-30] MEDS: Sodium Chloride 0.9% 2 ML Flush BID IV.FLUSH SCH ×2 (09:52→20:17)
[2017-11-30] MEDS: Folic Acid 1 MG Tablet PO SCH (09:52)
[2017-11-30] MEDS: Senna/Docusate Sodium 8.6/50 MG Tablet PO SCH ×2 (09:53→23:18)
[2017-11-30] MEDS: Pantoprazole Inj 40 MG Vial IV.PUSH SCH (09:53)
--- NOTE | 2017-11-30 10:19 | P.PNCC ---
Subjective Subjective Remarks/Hospital Course: The patient is a 36-year-old male with a history of ETOH abuse, who was at a [facility] for alcohol detoxification, became confused, hallucinating and possibly going into alcohol withdrawal. EVAC found him tachycardic, hypertensive. In the ER, he was given Ativan 10 mg total, Benadryl 50 mg and ketamine. His laboratory data is significant for elevated liver enzymes with AST 154, ALT 158 and total bilirubin 1.8. Urine drug screen is pending and his serum alcohol level is less than 3. Chest x-ray in the ED showed no acute findings identified. When seen, the patient is tachycardic with heart rate in the 120s, hypertensive with blood pressure 156/85. He is on room air oxygen with a saturation of 98-100%. History was obtained from reviewing medical records, as the patient is a poor historian due to his mental status. 11/25 Patient was intubated yesterday sedated with Diprivan and Fentanyl. Afebrile. 2: persistently hypoxic overnight requiring 100% fio2. this AM, CT chest demonstrates large clot burden right-sided PE as well as severe airspace disease on the right, concerning for aspiration pneumonitis/pneumonia. 11/27: oxygenation improving today. some oral bleeding persists. ct head negative for bleed. 4: hypoxia continues to improve slowly. fio2 down to 40%. weaning inhaled flolan. still some nasal bleeding, but this continues to improve as well. awake following commands, but now quite agitated at times. 5: self-extubated overnight, on my eval severely hypoxemic and agitated, pulling off NRB. emergently reintubated. volume overloaded and diuresing. 11/30: hypoxia improving. deeply sedated with propofol overnight: will now attempt to wean sedation and obtain neurologic exam. Objective Vital Signs / I&O: Vital Signs 11/29/17 11:18 11/29/17 12:00 11/29/17 14:00 Temperature 37.2 C Pulse Rate 94 H 104 H Respiratory Rate 10 L 16 Blood Pressure 97/60 L Pulse Oximetry 98 100 11/29/17 15:58 11/29/17 16:00 11/29/17 17:00 Temperature 37.6 C Pulse Rate 105 H 95 H Respiratory Rate 22 14 Blood Pressure 109/72 Pulse Oximetry 94 L 93 L 94 L 11/29/17 18:00 11/29/17 19:00 11/29/17 20:00 Temperature 38.6 C H Pulse Rate 97 H 85 92 H Respiratory Rate Blood Pressure 116/72 108/71 Pulse Oximetry 100 99 11/29/17 20:56 11/29/17 21:00 11/29/17 22:00 Temperature Pulse Rate 96 H 89 Respiratory Rate 11 L Blood Pressure 109/68 115/69 Pulse Oximetry 96 95 93 L 11/29/17 23:00 11/30/17 00:00 11/30/17 00:16 Temperature 37.8 C H Pulse Rate 105 H 90 Respiratory Rate 10 L 14 Blood Pressure 132/86 126/74 Pulse Oximetry 99 100 97 11/30/17 01:00 11/30/17 02:00 11/30/17 03:00 Temperature Pulse Rate 90 79 87 Respiratory Rate Blood Pressure 106/66 115/74 128/84 Pulse Oximetry 96 95 100 11/30/17 04:00 11/30/17 05:00 11/30/17 06:00 Temperature 38.2 C H Pulse Rate 95 H 84 72 Respiratory Rate 28 H Blood Pressure 127/75 106/59 L Pulse Oximetry 97 98 11/30/17 08:34 Temperature Pulse Rate Respiratory Rate 29 H Blood Pressure Pulse Oximetry 98 Intake & Output 11/29/17 11/30/17 11/30/17 18:59 06:59 18:59 Intake Total 1750 / 1750 1857.1 / 1857.1 162.9 / 162.9 Output Total 1500 / 1500 920 / 920 Balance 250 / 250 937.1 / 937.1 162.9 / 162.9 Weight 84.5 kg Intake: IV 1750 / 1750 1359.1 / 1359.1 162.9 / 162.9 Precedex Inj 200 MCG In NS Inj 50 / 50 48 ML @ 0.2 MCG/KG/HR 4.7 mls/ hr IV.CONT TITRATE PRN Rx#: [id number] Heparin/D5W 25,000 U/250 mL 25, 250 / 250 422 / 422 000 unit In 250 ml @ 1,800 UNITS/HR 18 mls/hr IV.CONT TITRATE PRN Rx#:[id number] Diprivan 1000 mg/100 ml Inj 1, 600 / 600 637.1 / 637.1 162.9 / 162.9 000 mg In 100 ml @ 5 MCG/KG/MIN 2.313 mls/hr IV.CONT TITRATE PRN Rx#:[id number] Flexbumin 25% Inj 100 ML @ 12.5 200 / 200 mls/hr IV.SIG Q8H NAYELY Rx#: [id number] Zosyn 4.5 GM Premix 4.5 gm In 200 / 200 200 / 200 100 ml @ 200 mls/hr IV.SIG Q6H NAYELY Rx#:[id number] KCl 40 mEq Premix Inj 40 meq In 200 / 200 100 / 100 100 ml @ 25 mls/hr IV.SIG Q2H PRN Rx#:[id number] fentaNYL 10 mcg/mL Premix Drip 250 / 250 2,500 mcg In 250 ml @ 50 MCG/HR 5 mls/hr IV.SIG TITRATE PRN Rx #:[id number] Bladder Irrigation Fluid - 498 / 498 Amount Retained Indwelling Urethral Catheter 498 / 498 Output: Urine 550 / 550 850 / 850 Urine Amount (Catheter) 950 / 950 Straight 950 / 950 Gastric Drainage 70 / 70 Orogastric Tube 70 / 70 Other: Bladder Irrigation Fluid - Amount Drained Indwelling Urethral Catheter 450 Date of Last Bowel Movement 11/30/17 # Bowel Movements 1 Result Diagrams: 11/30/17 04:36 11/30/17 04:36 Objective Remarks: GENERAL: young male, lying in bed, intubated, sedated. HEENT: Normocephalic. Atraumatic. Pupils equal, round, reactive, conjugate. Mucous membranes are moist NECK: Trachea is midline. right IJ TLC in place. CHEST: intubated, APRV, 40% fio2. 26/0 6:1. spo2 98%. equal chest rise. CARDIOVASCULAR: normal rate, regular rhythm. sinus. ABDOMEN: Soft, nontender, nondistended. No guarding. MUSCULOSKELETAL: Pulses 2+. 1+ peripheral edema. NEUROLOGICAL: RASS -4. weakly follows commands, withdraws x 4. sedated. Assessment and Plan - Assessment and Plan Plan: Assessment: 36yM with etoh withdraw syndrome now with severe life-threatening aspiration pneumonitis/pneumonia and massive pulmonary embolism causing life- threatening hypoxemia. s/p self-extubation and reintubation 11/29. will attempt to wean sedation. remains critically ill. Plan by systems: Neurologic: Acute alcohol withdrawal syndrome Delirium tremens Acute agitated deliriumsevere, persistent Acute metabolic encephalopathy Frequent neurochecks in the past has been on oxycodone, seroquel, haldol, versed, propofol, precedex , fentanyl. wean propofol. goal RASS -2. Avoid long-acting sedatives May require tracheostomy for this severe level of agitation if no improvements are seen. Respiratory: Severe life-threatening massive pulmonary embolism s/p systemic TPA Severe aspiration pneumonitis/pneumonia Severe acute hypoxemia- recurrent Acute hypoxic and hypercarbic respiratory failure self-extubated 11/29, reintubated 11/29 for severe hypoxia Vent bundle Head of bed elevated Nebs s/p systemic TPA 11/26 place back on APRV mode of ventilation. Wean FiO2 for goal SPO2 greater than 90% wean pHigh today. Cardiovascular: Submassive pulmonary embolism Systemic TPA 11/26 trop negative. 2D echo: EF 65%, no TR, normal RV size and function. dilated IVC. transition to therapeutic lovenox. Renal: Acute kidney injury- improving. Secondary to shock from PE -- Strict I/Os FEN/GI: Hypokalemia Acute intravascular volume overload tube feeds on hold for high residuals. start reglan 5mg iv q8h. Daily BMP, mag, phosphorus electrolyte replacement protocol continue diuresis with lasix. Heme/ID: Severe aspiration pneumonia PE hypercoagulable labs pending Patient's father says that 6 months ago he had a new diagnosis of a PE, may be familial 11/26: sputum culture: beta strep 11/26: blood cultures: NGTD. continue zosyn, stop date 12/02 (full 7 day course for aspiration pneumonia). patient may have had second episode of aspiration during self-extubation. continue empiric abx. Endocrine: hyperglycemia of critical illness -- SSI Prophylaxis: GI Prophylaxis pepcid DVT Prophylaxis -- SCDs heparin drip: transition to therapeutic lovenox. Lines: 11/26: left radial art line: d/c today. 11/26: right IJ TLC: d/c today. Dispo: remain in ICU. critically ill. This patient remains critically ill with one or more organ systems which are or may become a threat to life. I have spent in excess of 31 minutes discontinuously in the care and management of this patient. This time is exclusive of procedures, and includes, but is not limited to, evaluation of the patient, review of the medical record, discussions with family, consultants, nursing staff, or respiratory therapy, and documentation in the medical record. Procedures - Arterial Line Size (Gauge): 20
--- NOTE | 2017-11-30 11:41 | XR ---
EXAM DATE: 11/30/2017 12:00 AM EDT AGE/SEX: 36 years / Male INDICATIONS: Shortness of breath. CLINICAL DATA: This is the patient's subsequent encounter. Patient reports that signs and symptoms h ave been present for 1 week and indicates a pain score of Nonresponsive. MEDICAL/SURGICAL HISTORY: Non-responsive. Non-responsive. COMPARISON: . FINDINGS: The ET tube, NG tube and right internal jugular central line are all well placed. The heart size is w ithin normal limits. There some minimal increased density at the medial right base. There is minimal increased density at the lateral right midlung which appears to be improving. The left lung appears g rossly clear. CONCLUSION: Improving right mid and lower lung areas of consolidation or atelectasis. Electronically signed by: Higinio Rasheed MD 11/30/2017 11:40 AM EDT
[2017-11-30] MEDS: Enoxaparin Inj 80 MG/0.8 ML Syringe SQ SCH ×2 (12:52→20:14)
[2017-11-30] MEDS: Epoprostenol (30,000/mL) Neb 100 ML in Sodium Chlor 0.9% Inj 0 ML NEB SCH (19:15)
[2017-12-01] MEDS: Insulin NovoLIN Regular Correctional Sugar Inj SQ SCH ×4 (00:25→17:24)
[2017-12-01] MEDS: Oral Hygiene Kit OROPHARYNG SCH ×4 (01:20→16:00)
[2017-12-01] MEDS: Piperacil/Tazo 4.5 GM Premix 4.5 GM/100 ML BAG IV.SIG SCH ×4 (02:17→22:25)
[2017-12-01 04:57] LABS: Hematocrit 40.9 % (39.0-51.0); Hemoglobin 13.9 gm/dL (13.0-17.0); Mean Corpuscular HGB Conc 34.1 % (32.0-36.0); Mean Corpuscular Volume 88.1 fL (80.0-100.0); Mean Platelet Volume 9.7 fL (7.0-11.0); Platelet Count 300 th/mm3 (150-450); Red Blood Count 4.64 mil/mm3 (4.50-5.90); Red Cell Distribution Width 15.4 % (11.6-17.2); White Blood Count 12.8 th/mm3 (4.0-11.0)
[2017-12-01 05:04] LABS: Prothrombin Time 9.7 sec (9.8-11.6)
[2017-12-01 05:25] LABS: Alanine Aminotransferase 57 U/L (12-78); Albumin 3.3 g/dL (3.4-5.0); Alkaline Phosphatase 57 U/L (45-117); Anion Gap 15 meq/L (5-15); Aspartate Aminotransferase 35 U/L (15-37); Blood Urea Nitrogen 14 mg/dL (7-18); Calcium 9.1 mg/dL (8.5-10.1); Carbon Dioxide 19.3 meq/L (21.0-32.0); Chloride 104 meq/L (98-107); Glomerular Filtration Rate Greater Than 89 mL/min (>89); Glucose,Random 107 mg/dL (74-106); Magnesium 2.4 mg/dL (1.5-2.5); Phosphorus 3.5 mg/dL (2.5-4.9); Sodium 138 meq/L (136-145); Total Protein 8.6 g/dL (6.4-8.2)
[2017-12-01 05:31] LABS: Potassium 2.8 meq/L (3.5-5.1)
[2017-12-01] MEDS: Potassium Chlor 20 mEq Premix 20 MEQ/100 ML PIGGYBACK IV.SIG PRN ×3 (06:30→08:30)
[2017-12-01] MEDS ORDERED: Potassium Bicarbonate 25 MEQ Effervescent Tablet PO ONE ×2 (08:00→09:30)
[2017-12-01] MEDS ORDERED: Sodium Phosphate Inj 30 MMOL in Sodium Chlor 0.9% Inj 250 ML IV.SIG PRN (09:01)
[2017-12-01] MEDS ORDERED: Magnesium Sulfate Inj 4 GM in Sodium Chlor 0.9% Inj 92 ML IV.SIG PRN (09:01)
[2017-12-01] MEDS ORDERED: Potassium Phosphate Inj 30 MMOL in Sodium Chlor 0.9% Inj 250 ML IV.SIG PRN (09:01)
[2017-12-01] MEDS ORDERED: Potassium Phosphate 500 MG Soluble Tablet PO PRN ×2 (09:01)
[2017-12-01] MEDS ORDERED: Potassium Chlor 40 mEq Premix 40 MEQ/100 ML PIGGYBACK IV.SIG PRN ×2 (09:01)
[2017-12-01] MEDS ORDERED: Potassium Chlor 20 mEq Premix 20 MEQ/100 ML PIGGYBACK IV.SIG PRN (09:01)
[2017-12-01] MEDS ORDERED: Magnesium Oxide 400 MG Tablet PO PRN (09:01)
[2017-12-01] MEDS ORDERED: Potassium Chloride 25 MEQ Effervescent Tablet PO PRN (09:01)
[2017-12-01] MEDS ORDERED: Magnesium Sulfate Inj 2 GM in Sodium Chlor 0.9% Inj 96 ML IV.SIG PRN (09:01)
--- NOTE | 2017-12-01 09:20 | P.PNIM ---
Subjective Interval history: The patient is a 36-year-old male with a history of ETOH abuse, who was at a [facility] for alcohol detoxification, became confused, hallucinating and possibly going into alcohol withdrawal. EVAC found him tachycardic, hypertensive. In the ER, he was given Ativan 10 mg total, Benadryl 50 mg and ketamine. His laboratory data is significant for elevated liver enzymes with AST 154, ALT 158 and total bilirubin 1.8. Urine drug screen is pending and his serum alcohol level is less than 3. Chest x-ray in the ED showed no acute findings identified. When seen, the patient is tachycardic with heart rate in the 120s, hypertensive with blood pressure 156/85. He is on room air oxygen with a saturation of 98-100%. History was obtained from reviewing medical records, as the patient is a poor historian due to his mental status. 11/25 Patient was intubated yesterday sedated with Diprivan and Fentanyl. Afebrile. 2: persistently hypoxic overnight requiring 100% fio2. this AM, CT chest demonstrates large clot burden right-sided PE as well as severe airspace disease on the right, concerning for aspiration pneumonitis/pneumonia. 3: oxygenation improving today. some oral bleeding persists. ct head negative for bleed. 4: hypoxia continues to improve slowly. fio2 down to 40%. weaning inhaled flolan. still some nasal bleeding, but this continues to improve as well. awake following commands, but now quite agitated at times. 5: self-extubated overnight, on my eval severely hypoxemic and agitated, pulling off NRB. emergently reintubated. volume overloaded and diuresing. 106: hypoxia improving. deeply sedated with propofol overnight: will now attempt to wean sedation and obtain neurologic exam. 10 PATIENT TRANSFERRED TO OUR SERVICE ON LOVENOX 80MG SUBQ BID WILL NEED GROUP HOME TREATMENT FOR THE PULMONARY EMBOLI INCREASE ACTIVITY AM LABS DW RN AND PT PT AND OT Physical Exam Vital signs: Vital Signs 11/30/17 10:00 11/30/17 11:00 11/30/17 11:01 Temperature Pulse Rate 84 86 Respiratory Rate 21 Blood Pressure 131/76 132/80 Pulse Oximetry 100 94 L 97 11/30/17 12:00 11/30/17 13:00 11/30/17 14:00 Temperature Pulse Rate 74 81 83 Respiratory Rate 23 Blood Pressure 121/65 123/72 128/75 Pulse Oximetry 98 100 98 11/30/17 15:00 11/30/17 16:00 11/30/17 19:00 Temperature Pulse Rate 83 96 H 83 Respiratory Rate Blood Pressure 133/75 141/77 H 143/100 H Pulse Oximetry 98 98 97 11/30/17 20:00 11/30/17 21:00 11/30/17 22:00 Temperature 99.3 F Pulse Rate 77 87 86 Respiratory Rate 20 Blood Pressure 128/81 130/88 126/76 Pulse Oximetry 98 90 L 97 11/30/17 23:00 12/01/17 00:00 12/01/17 01:00 Temperature 100 F H Pulse Rate 118 H 80 82 Respiratory Rate 19 Blood Pressure 133/76 121/68 118/67 Pulse Oximetry 97 99 97 12/01/17 02:00 12/01/17 03:00 12/01/17 04:00 Temperature 99.0 F Pulse Rate 78 65 78 Respiratory Rate 18 Blood Pressure 123/70 118/64 116/66 Pulse Oximetry 96 98 97 12/01/17 05:00 12/01/17 06:00 12/01/17 07:00 Temperature Pulse Rate 70 78 Respiratory Rate Blood Pressure 125/77 120/77 Pulse Oximetry 97 99 95 Intake & Output 11/30/17 12/01/17 12/01/17 18:59 06:59 18:59 Intake Total 822.9 / 822.9 1300 / 1300 Output Total 3200 / 3200 7100 / 7100 Balance -2377.1 / -2377.1 -5800 / -5800 Weight 82 kg Intake: IV 822.9 / 822.9 100 / 100 Heparin/D5W 25,000 U/250 mL 25, 0 / 0 000 unit In 250 ml @ 1,800 UNITS/HR 18 mls/hr IV.CONT TITRATE PRN Rx#:[id number] Diprivan 1000 mg/100 ml Inj 1, 322.9 / 322.9 000 mg In 100 ml @ 5 MCG/KG/MIN 2.313 mls/hr IV.CONT TITRATE PRN Rx#:[id number] Flexbumin 25% Inj 100 ML @ 12.5 100 / 100 mls/hr IV.SIG Q8H NAYELY Rx#: [id number] Zosyn 4.5 GM Premix 4.5 gm In 200 / 200 100 / 100 100 ml @ 200 mls/hr IV.SIG Q6H NAYELY Rx#:[id number] KCl 40 mEq Premix Inj 40 meq In 200 / 200 100 ml @ 25 mls/hr IV.SIG Q2H PRN Rx#:[id number] Oral 1200 / 1200 Output: Urine 3200 / 3200 7100 / 7100 Other: Date of Last Bowel Movement 11/30/17 12/01/17 # Bowel Movements 1 2 # Incontinent Bowel Movements 1 Narrative: GENERAL: Awake alert and oriented x3 talkative and cooperative SKIN: Warm and dry. HEAD: Atraumatic. Normocephalic. EYES: Pupils equal and round. No scleral icterus. No injection or drainage. ENT: No nasal bleeding or discharge. Mucous membranes pink and moist. Tongue is midline NECK: Trachea midline. No JVD. Supple CARDIOVASCULAR: Regular rate and rhythm. S1-S2 no S3 or S4 RESPIRATORY: No accessory muscle use. Clear to auscultation. Breath sounds equal bilaterally. GASTROINTESTINAL: Abdomen soft, non-tender, nondistended. Hepatic and splenic margins not palpable. MUSCULOSKELETAL: Extremities without clubbing, cyanosis, or edema. No obvious deformities. NEUROLOGICAL: Awake and alert. No obvious cranial nerve deficits. Motor grossly within normal limits. Five out of 5 muscle strength in the arms and legs. Normal speech. PSYCHIATRIC: INAppropriate mood and affect; insight and judgment ABnormal. - Urinary Catheter Management Straight Cath placed during this visit: no Reason for continuing: Hourly intake/output Indwelling Urethral Catheter Cath placed during this visit: yes Reason for continuing: Hourly intake/output Insertion date: 11/26/17 Insertion time: 10:00 Results - Labs CBC & Chem 7: 12/01/17 03:55 12/01/17 03:55 Laboratory Results - last 24 hr 11/30/17 12/01/17 12/01/17 19:00 00:21 03:55 WBC 12.8 H RBC 4.64 Hgb 13.9 Hct 40.9 MCV 88.1 MCH 30.0 MCHC 34.1 RDW 15.4 Plt Count 300 MPV 9.7 PT INR Sodium Potassium 3.1 L Chloride Carbon Dioxide Anion Gap BUN Creatinine Estimated GFR POC Glucose 109 Random Glucose Calcium Phosphorus Magnesium Total Bilirubin AST ALT Alkaline Phosphatase Total Protein Albumin 10/07/18 10/07/18 10/07/18 03:55 03:55 06:06 WBC RBC Hgb Hct MCV MCH MCHC RDW Plt Count MPV PT 9.7 L INR 1.0 Sodium 138 Potassium 2.8 L* Chloride 104 Carbon Dioxide 19.3 L Anion Gap 15 BUN 14 Creatinine 0.87 Estimated GFR Greater than 89 POC Glucose 103 Random Glucose 107 H Calcium 9.1 Phosphorus 3.5 Magnesium 2.4 Total Bilirubin 1.2 H AST 35 ALT 57 Alkaline Phosphatase 57 Total Protein 8.6 H Albumin 3.3 L Microbiology 11/26/17 05:43 Blood - Peripheral Aerobic Blood Culture - Preliminary No growth in 4 days 11/26/17 05:43 Blood - Peripheral Anaerobic Blood Culture - Preliminary No growth in 4 days 11/26/17 05:38 Blood - Peripheral Aerobic Blood Culture - Preliminary No growth in 4 days 11/26/17 05:38 Blood - Peripheral Anaerobic Blood Culture - Preliminary No growth in 4 days - Imaging Impressions Chest X-Ray 11/30/17 00:00 CONCLUSION: Improving right mid and lower lung areas of consolidation or atelectasis. - Procedures DATE: 11/26/2017 Bronchoscopy/diagnostic and therapeutic INDICATION: Refractory hypoxemic respiratory failure/acute CONSENT Informed consent for procedure was not obtained from father Brett Thrasher as procedure was considered emergent due to life-threatening worsening of clinical condition DESCRIPTION OF THE PROCEDURE The patient was placed in supine position. The patient was on pressure control /assist control ventilation. FiO2 100%. PEEP of 10. I entered the 8.0 ET tube with the fiberoptic bronchoscope. Minimal to no thin secretions noted in ETT. The lucy was sharp. I evaluated the right upper, middle and lower lobes. Few thin secretions noted in the right lower lobe. These were suctioned and quickly. The mucosa was normal. No masses were identified. I evaluated the left upper/lingula lower lobe. No secretions were noted. Gently lavaged with 30 cc saline. Bronchus scope was withdrawn and the procedure stopped. I did not perform a Lukens trap lavage due to severity of patient's clinical condition. And minimal secretions. ESTIMATED BLOOD LOSS: Minimal COMPLICATIONS: No apparent complications. STAT chest x-ray pending at time of dictation. vent management sp TPA Assessment and Plan - Plan Assessment: 36yM with etoh withdraw syndrome now with severe life-threatening aspiration pneumonitis/pneumonia and massive pulmonary embolism causing life- threatening hypoxemia. s/p self-extubation and reintubation 11/29. will attempt to wean sedation. remains critically ill. Plan by systems: Neurologic: Acute alcohol withdrawal syndrome Delirium tremens Acute agitated deliriumsevere, persistent Acute metabolic encephalopathy Frequent neurochecks in the past has been on oxycodone, seroquel, haldol, versed, propofol, precedex , fentanyl. wean propofol. goal RASS -2. Avoid long-acting sedatives Extubated yesterday doing well Respiratory: Severe life-threatening massive pulmonary embolism s/p systemic TPA Severe aspiration pneumonitis/pneumonia Severe acute hypoxemia- recurrent Acute hypoxic and hypercarbic respiratory failure self-extubated 11/29, reintubated 11/29 for severe hypoxia Vent bundle Head of bed elevated Nebs s/p systemic TPA 11/26 place back on APRV mode of ventilation. Wean FiO2 for goal SPO2 greater than 90% wean pHigh today. Off ventilator today 12-01 Cardiovascular: Submassive pulmonary embolism Systemic TPA 11/26 trop negative. 2D echo: EF 65%, no TR, normal RV size and function. dilated IVC. transition to therapeutic lovenox. Now on Lovenox 80 mg subcu twice daily-we will need long-term anticoagulation Renal: Acute kidney injury- improving. Secondary to shock from PE -- Strict I/Os FEN/GI: Hypokalemia Acute intravascular volume overload tube feeds on hold for high residuals. start reglan 5mg iv q8h. Daily BMP, mag, phosphorus electrolyte replacement protocol continue diuresis with lasix. Replace potassium by protocol Heme/ID: Severe aspiration pneumonia PE hypercoagulable labs pending Patient's father says that 6 months ago he had a new diagnosis of a PE, may be familial 11/26: sputum culture: beta strep 11/26: blood cultures: NGTD. continue zosyn, stop date 12/02 (full 7 day course for aspiration pneumonia). patient may have had second episode of aspiration during self-extubation. continue empiric abx. Endocrine: hyperglycemia of critical illness -- SSI Prophylaxis: GI Prophylaxis pepcid DVT Prophylaxis -- SCDs heparin drip: transition to therapeutic lovenox. Lines: 11/26: left radial art line: d/c today. 11/26: right IJ TLC: d/c today. Code Status: Full code Discussed Condition With: RN and patient Discharge Planning: Pending improvement WILL NEED HELP WITH MEDICATIONS AT DC Procedures - Arterial Line Size (Gauge): 20
[2017-12-01] MEDS: Enoxaparin Inj 80 MG/0.8 ML Syringe SQ SCH ×2 (10:28→22:26)
[2017-12-01] MEDS: Folic Acid 1 MG Tablet PO SCH (10:28)
[2017-12-01] MEDS: Chlorhexidine 0.12% Oral Kit 15 ML UDC OROPHARYNG SCH ×2 (10:28→22:25)
[2017-12-01] MEDS: Sodium Chloride 0.9% 2 ML Flush BID IV.FLUSH SCH ×2 (10:29→22:26)
[2017-12-01] MEDS: Senna/Docusate Sodium 8.6/50 MG Tablet PO SCH ×2 (10:29→22:26)
[2017-12-01] MEDS: Pantoprazole Inj 40 MG Vial IV.PUSH SCH (10:29)
--- NOTE | 2017-12-01 15:56 | ECHRPT ---
Indication: HYPERTENSIVE HEART DISEASE CONCLUSIONS Normal left ventricular size. Mild concentric left ventricular hypertrophy. The left ventricular systolic function is low normal with an estimated ejection fraction in the rang e of 50- 55%. Trace mitral valve regurgitation. There is trace tricuspid valve regurgitation. BP: / HR: Rhythm: Sinus MEASUREMENTS (Male / Female) Normal Values Technical Quality:Fair 2D ECHO LV Diastolic Diameter PLAX 5.0 cm 4.2 - 5.9 / 3.9 - 5.3 cm LV Systolic Diameter PLAX 3.9 cm IVS Diastolic Thickness 1.1 cm 0.6 - 1.0 / 0.6 - 0.9 cm LVPW Diastolic Thickness 1.1 cm 0.6 - 1.0 / 0.6 - 0.9 cm LV Relative Wall Thickness 0.4 RV Internal Dim ED PLAX 2.9 cm LVOT Diameter 2.2 cm Aortic Root Diameter 3.4 cm LA Systolic Diameter LX 3.6 cm 3.0 - 4.0 / 2.7 - 3.8 cm M-MODE AV Cusp Separation MM 2.1 cm DOPPLER AV Peak Velocity 142.0 cm/s AV Peak Gradient 8.1 mmHg AV Mean Gradient 5.0 mmHg AV Velocity Time Integral 21.6 cm LVOT Peak Velocity 102.0 cm/s LVOT Peak Gradient 4.2 mmHg LVOT Velocity Time Integral 17.4 cm AV Area Cont Eq vti 3.1 cm AV Area Cont Eq pk 2.7 cm Mitral E Point Velocity 74.5 cm/s Mitral A Point Velocity 78.0 cm/s Mitral E to A Ratio 1.0 LV E' Lateral Velocity 13.1 cm/s Mitral E to LV E' Lateral Ratio 5.7 LV E' Septal Velocity 8.4 cm/s Mitral E to LV E' Septal Ratio 8.9 PV Peak Velocity 78.2 cm/s PV Peak Gradient 2.4 mmHg FINDINGS LEFT VENTRICLE Normal left ventricular size. Mild concentric left ventricular hypertrophy. The left ventricular systolic function is low normal with an estimated ejection fraction in the rang e of 50- 55%. RIGHT VENTRICLE Normal right ventricular size and systolic function. LEFT ATRIUM The left atrial size is normal. RIGHT ATRIUM The right atrial size is normal. ATRIAL SEPTUM No atrial level shunt is demonstrated by color flow Doppler interrogation. AORTA The aortic root and proximal ascending aorta are normal in size on limited imaging. MITRAL VALVE Trace mitral valve regurgitation. AORTIC VALVE Trileaflet aortic valve. No aortic valve stenosis or regurgitation. TRICUSPID VALVE There is trace tricuspid valve regurgitation. PULMONARY VALVE No pulmonary valve regurgitation or stenosis. VESSELS The inferior vena cava was not well visualized. PERICARDIUM No pericardial effusion. Juan Carlos Alcocer MD (Electronically Signed) Final Date:01 December 2017 15:54
[2017-12-01] MEDS ORDERED: Haloperidol Inj 5 MG/ML Ampul IM ONE (22:12)
[2017-12-02] MEDS: Insulin NovoLIN Regular Correctional Sugar Inj SQ SCH ×4 (00:11→17:15)
[2017-12-02] MEDS: Oral Hygiene Kit OROPHARYNG SCH ×4 (00:12→16:19)
[2017-12-02] MEDS: Piperacil/Tazo 4.5 GM Premix 4.5 GM/100 ML BAG IV.SIG SCH ×4 (03:00→21:10)
[2017-12-02] MEDS ORDERED: Haloperidol Inj 5 MG/ML Ampul IM ONE (06:33)
[2017-12-02 08:16] LABS: Baso # (Auto) 0.2 th/mm3 (0.0-0.2); Baso % (Auto) 1.2 % (0.0-2.0); Eos # (Auto) 0.1 th/mm3 (0.0-0.4); Eos % (Auto) 0.6 % (0.0-4.0); Hematocrit 42.2 % (39.0-51.0); Hemoglobin 14.1 gm/dL (13.0-17.0); Lymph # (Auto) 1.8 th/mm3 (1.0-4.8); Lymph % (Auto) 14.1 % (9.0-44.0); Mean Corpuscular HGB Conc 33.3 % (32.0-36.0); Mean Corpuscular Hemoglobin 29.3 pg (27.0-34.0); Mean Corpuscular Volume 87.9 fL (80.0-100.0); Mean Platelet Volume 9.4 fL (7.0-11.0); Mono # (Auto) 1.4 th/mm3 (0.0-0.9); Mono % (Auto) 10.7 % (0.0-8.0); Neut # (Auto) 9.3 th/mm3 (1.8-7.7); Neut % (Auto) 73.4 % (16.0-70.0); Platelet Count 379 th/mm3 (150-450); Red Cell Distribution Width 15.6 % (11.6-17.2); White Blood Count 12.6 th/mm3 (4.0-11.0)
[2017-12-02] MEDS: Chlorhexidine 0.12% Oral Kit 15 ML UDC OROPHARYNG SCH ×2 (08:46→21:05)
[2017-12-02] MEDS: Enoxaparin Inj 80 MG/0.8 ML Syringe SQ SCH ×2 (08:46→21:13)
[2017-12-02] MEDS: Sodium Chloride 0.9% 2 ML Flush BID IV.FLUSH SCH ×2 (08:47→21:05)
[2017-12-02] MEDS: Senna/Docusate Sodium 8.6/50 MG Tablet PO SCH ×2 (08:47→21:11)
[2017-12-02] MEDS: Folic Acid 1 MG Tablet PO SCH (08:47)
[2017-12-02] MEDS: Pantoprazole Inj 40 MG Vial IV.PUSH SCH (08:47)
[2017-12-02 09:01] LABS: Alanine Aminotransferase 117 U/L (12-78); Albumin 3.2 g/dL (3.4-5.0); Alkaline Phosphatase 61 U/L (45-117); Anion Gap 18 meq/L (5-15); Aspartate Aminotransferase 90 U/L (15-37); Blood Urea Nitrogen 15 mg/dL (7-18); Calcium 9.2 mg/dL (8.5-10.1); Chloride 105 meq/L (98-107); Glomerular Filtration Rate Greater Than 89 mL/min (>89); Glucose,Random 94 mg/dL (74-106); Magnesium 2.6 mg/dL (1.5-2.5); Phosphorus 4.2 mg/dL (2.5-4.9); Potassium 3.3 meq/L (3.5-5.1); Sodium 142 meq/L (136-145); Total Protein 8.5 g/dL (6.4-8.2)
[2017-12-02 09:16] LABS: Lymphocytes 17 % (9-44); Metamyelocytes 8 % (0-1); Monocytes 4 % (0-8); Myelocytes 2 % (0-0)
[2017-12-02 09:26] LABS: Platelet Estimate Normal (Normal); RBC Morphology Normal (Normal)
[2017-12-02 09:27] LABS: Platelet Morphology Normal (Normal)
--- NOTE | 2017-12-02 12:13 | P.PN ---
Subjective Interval history: Follow-up visit submassive PE, MARILEE. Patient seen and examined today. Reports he is doing fine. States that he does not have any increasing shortness of breath or dyspnea. Denies pain and discomfort. Denies chest pain, headaches, dizziness. Denies fevers, chills, n/v/d. Denies dysuria. Physical Exam Vital signs: Vital Signs 12/01/17 16:00 12/01/17 19:00 12/01/17 20:00 Temperature 98.9 F 98 F Pulse Rate 64 86 Respiratory Rate 20 18 Blood Pressure 140/66 103/68 Pulse Oximetry 99 95 97 12/01/17 22:09 12/01/17 22:45 12/02/17 00:00 Temperature 97.6 F Pulse Rate 96 H 74 Respiratory Rate 18 Blood Pressure 142/80 H 127/76 Pulse Oximetry 95 91 L 12/02/17 04:00 12/02/17 08:00 Temperature 99 F 99 F Pulse Rate 67 75 Respiratory Rate 18 20 Blood Pressure 137/82 141/83 H Pulse Oximetry 99 97 Intake & Output 12/01/17 12/02/17 12/02/17 18:59 06:59 18:59 Intake Total 500 / 500 200 / 200 Output Total 500 / 500 2 / 2 Balance 0 / 0 200 / 200 -2 / -2 Weight 86.4 kg Intake: IV 500 / 500 200 / 200 Zosyn 4.5 GM Premix 4.5 gm In 200 / 200 200 / 200 100 ml @ 200 mls/hr IV.SIG Q6H NAYELY Rx#:[id number] KCl 20 mEq Premix Inj 20 meq In 300 / 300 100 ml @ 50 mls/hr IV.SIG Q2H PRN Rx#:[id number] Output: Urine 500 / 500 Stool Other: Date of Last Bowel Movement 12/01/17 12/02/17 12/02/17 # Bowel Movements 3 Narrative: GENERAL: This is a well-nourished, well-developed patient, in no apparent distress. SKIN: Warm and dry. HEENT: Normocephalic. Pupils equal round and reactive. Nose without bleeding. Airway patent. NECK: Trachea midline. CARDIOVASCULAR: Regular rate and rhythm without murmurs, gallops, or rubs. RESPIRATORY: Mildly coarse breath sounds. No wheezes, rales, or rhonchi. GASTROINTESTINAL: Abdomen soft, non-tender, nondistended. Bowel Sounds normoactive x4. MUSCULOSKELETAL: Extremities without clubbing, cyanosis, or edema. NEUROLOGICAL: Awake and alert. No focal neuro deficit. Moves all extremities. Normal speech. - Urinary Catheter Management Straight Cath placed during this visit: no Reason for continuing: Hourly intake/output Indwelling Urethral Catheter Cath placed during this visit: yes Reason for continuing: Hourly intake/output Insertion date: 11/26/17 Insertion time: 10:00 Results - Labs CBC & Chem 7: 12/02/17 06:54 12/02/17 06:54 Laboratory Results - last 24 hr 12/01/17 12/01/17 12/02/17 17:23 23:23 01:20 WBC RBC Hgb Hct MCV MCH MCHC RDW Plt Count MPV Prelim Diff (Auto) Neut % (Auto) Lymph % (Auto) [place] % (Auto) Eos % (Auto) Baso % (Auto) Neut # (Auto) Lymph # (Auto) [place] # (Auto) Eos # (Auto) Baso # (Auto) WBC Differential Seg Neuts % (Manual) Band Neuts % (Manual) Lymphocytes % (Manual) Monocytes % (Manual) Basophils % (Manual) Metamyelocytes % (Man) Myelocytes % (Man) Abs Neuts (Manual) Differential Comment Platelet Estimate Platelet Morphology RBC Morphology PT INR Sodium Potassium Chloride Carbon Dioxide Anion Gap BUN Creatinine Estimated GFR POC Glucose 103 104 Random Glucose Calcium Phosphorus Magnesium Total Bilirubin AST ALT Alkaline Phosphatase Total Protein Albumin TSH Free T4 Stl C.difficile DNA Amp Negative St C. diff Tox Epid 027 Negative 12/02/17 12/02/17 12/02/17 06:08 06:54 06:54 WBC 12.6 H RBC 4.80 Hgb 14.1 Hct 42.2 MCV 87.9 MCH 29.3 MCHC 33.3 RDW 15.6 Plt Count 379 MPV 9.4 Prelim Diff (Auto) Slide review pending Neut % (Auto) 73.4 H Lymph % (Auto) 14.1 [place] % (Auto) 10.7 H Eos % (Auto) 0.6 Baso % (Auto) 1.2 Neut # (Auto) 9.3 H Lymph # (Auto) 1.8 [place] # (Auto) 1.4 H Eos # (Auto) 0.1 Baso # (Auto) 0.2 WBC Differential Manual diff final Seg Neuts % (Manual) 48 Band Neuts % (Manual) 17 H Lymphocytes % (Manual) 17 Monocytes % (Manual) 4 Basophils % (Manual) 4 H Metamyelocytes % (Man) 8 H Myelocytes % (Man) 2 H Abs Neuts (Manual) 9.5 H Differential Comment . Platelet Estimate Normal Platelet Morphology Normal RBC Morphology Normal PT INR Sodium 142 Potassium 3.3 L Chloride 105 Carbon Dioxide 19.0 L Anion Gap 18 H BUN 15 Creatinine 0.82 Estimated GFR Greater than 89 POC Glucose 96 Random Glucose 94 Calcium 9.2 Phosphorus 4.2 Magnesium 2.6 H Total Bilirubin 0.8 AST 90 H ALT 117 H Alkaline Phosphatase 61 Total Protein 8.5 H Albumin 3.2 L TSH 2.780 Free T4 1.10 Stl C.difficile DNA Amp St C. diff Tox Epid 027 12/02/17 12/02/17 06:54 11:27 WBC RBC Hgb Hct MCV MCH MCHC RDW Plt Count MPV Prelim Diff (Auto) Neut % (Auto) Lymph % (Auto) [place] % (Auto) Eos % (Auto) Baso % (Auto) Neut # (Auto) Lymph # (Auto) [place] # (Auto) Eos # (Auto) Baso # (Auto) WBC Differential Seg Neuts % (Manual) Band Neuts % (Manual) Lymphocytes % (Manual) Monocytes % (Manual) Basophils % (Manual) Metamyelocytes % (Man) Myelocytes % (Man) Abs Neuts (Manual) Differential Comment Platelet Estimate Platelet Morphology RBC Morphology PT 10.0 INR 1.0 Sodium Potassium Chloride Carbon Dioxide Anion Gap BUN Creatinine Estimated GFR POC Glucose 111 H Random Glucose Calcium Phosphorus Magnesium Total Bilirubin AST ALT Alkaline Phosphatase Total Protein Albumin TSH Free T4 Stl C.difficile DNA Amp St C. diff Tox Epid 027 Microbiology 11/26/17 05:43 Blood - Peripheral Aerobic Blood Culture - Final No growth in 5 days 11/26/17 05:43 Blood - Peripheral Anaerobic Blood Culture - Final No growth in 5 days 11/26/17 05:38 Blood - Peripheral Aerobic Blood Culture - Final No growth in 5 days 11/26/17 05:38 Blood - Peripheral Anaerobic Blood Culture - Final No growth in 5 days - Procedures DATE: 11/26/2017 Bronchoscopy/diagnostic and therapeutic INDICATION: Refractory hypoxemic respiratory failure/acute CONSENT Informed consent for procedure was not obtained from father Brett Thrasher as procedure was considered emergent due to life-threatening worsening of clinical condition DESCRIPTION OF THE PROCEDURE The patient was placed in supine position. The patient was on pressure control /assist control ventilation. FiO2 100%. PEEP of 10. I entered the 8.0 ET tube with the fiberoptic bronchoscope. Minimal to no thin secretions noted in ETT. The lucy was sharp. I evaluated the right upper, middle and lower lobes. Few thin secretions noted in the right lower lobe. These were suctioned and quickly. The mucosa was normal. No masses were identified. I evaluated the left upper/lingula lower lobe. No secretions were noted. Gently lavaged with 30 cc saline. Bronchus scope was withdrawn and the procedure stopped. I did not perform a Lukens trap lavage due to severity of patient's clinical condition. And minimal secretions. ESTIMATED BLOOD LOSS: Minimal COMPLICATIONS: No apparent complications. STAT chest x-ray pending at time of dictation. vent management sp TPA Assessment and Plan - Plan 36yM with etoh withdraw syndrome now with severe life-threatening aspiration pneumonitis/pneumonia and massive pulmonary embolism causing life-threatening hypoxemia. Admitted to critical care for respiratory failure patient was intubated and extubated. Transfer of care to hospitalist group. Submassive pulmonary embolism, systemic TPA Recent aspiration pneumonitis/pneumonia Recent hypoxic respiratory failure status post intubation -Continue to monitor respiratory status. On O2 nasal cannula. Wean off, keep O2 sat greater than 90% -Duo nebs scheduled, as needed -On IV Zosyn with stop date 12/02 -Counseled on smoking cessation. -Continue full dose Lovenox. -Hematology consulted for transition to p.o. anticoagulants -PT eval treat Alcohol withdrawal Recent detox at [facility] -Off CIWA -Continue thiamine, multivitamin, folate -Monitor LFTs Hypokalemia -Potassium supplement -Monitor potassium levels DVT prop Lovenox Code Status: Full code Discussed Condition With: Patient, nurse Discharge Planning: Plan to DC when clinically improved. Possibly in 2 days. Procedures - Arterial Line Size (Gauge): 20
--- NOTE | 2017-12-02 15:14 | MB ---
cc: Natacha Mao MD DATE: 12/02/2017 MEDICAL ONCOLOGY CONSULT NOTE CHIEF COMPLAINT: 1. Pulmonary embolism. 2. Alcohol abuse. 3. Hypercoagulable workup. HISTORY OF PRESENT ILLNESS: Mr. Thrasher is a 36-year-old gentleman with a history of depression, anxiety, acid reflux. He was at [facility] for alcohol detoxification. He became confused, hallucinating and possibly went into alcohol withdrawal. He was found to be tachycardic and hypertensive. Upon [facility] arrival, he was given Ativan, Benadryl and ketamine in the emergency room and he was found to have elevated liver enzymes and elevated total bilirubin. Urine drug screen was negative. He was intubated on 11/25/[address] scan obtained and he was found to have a large clot burden right-sided PE as well as severe airspace disease on the right, concerning for aspiration pneumonitis pneumonia. He was treated with systemic TPA. He had improvement in his breathing and he was extubated. He was then transferred to the hospitalist service. Echocardiogram with ejection fraction 50%-55%, trace mitral valve regurgitation, mild concentric left ventricular hypertrophy and normal left ventricular size. REVIEW OF SYSTEMS: As above in HPI, all others negative. PAST MEDICAL HISTORY: 1. Depression. 2. Anxiety. 3. Acid reflux. PAST SURGICAL HISTORY: None. FAMILY HISTORY: No known family history of blood clot OUTPATIENT MEDICATIONS: 1. Pristiq. 2. Xanax. 3. PPI. SOCIAL HISTORY: The patient has a good support system with his father and girlfriend. He reports that he formerly drank heavily and smoked heavily. He reports that he quit when he came into the hospital and he anticipates remaining off of these drugs in the outpatient setting. He is going to go through an alcohol program to make sure that he stays off alcohol upon hospital discharge. PHYSICAL EXAMINATION: VITAL SIGNS: Temperature 98.5, pulse 74, respiratory rate 20, blood pressure 128/84. GENERAL: Well-developed, well-nourished man in no distress. HEENT: Head is normocephalic, atraumatic. Eyes: PERRLA, EOMI. No scleral icterus. NECK: Supple. No palpable lymphadenopathy. CARDIOVASCULAR: Regular rate and rhythm. No murmurs. RESPIRATORY: Clear to auscultation bilaterally. ABDOMEN: Protuberant, soft, nontender, nondistended. EXTREMITIES: No edema. NEUROLOGIC: Grossly nonfocal. PSYCHIATRIC: Appropriate mood and affect. IMAGING STUDIES: He was found to have increased echotexture without focal lesion or ductal dilation, hepatomegaly with steatosis; spleen the upper limits of normal for size. LABORATORY STUDIES: White blood cell count 12.6, hemoglobin 14.1, platelet count is 379,000. Chemistry studies: Creatinine 0.82, total bilirubin 0.8, AST 90, ALT is 117, alkaline phosphatase is 61. Total protein is 8.5 and albumin is 3.2. ASSESSMENT AND PLAN: 1. Pulmonary embolism, unprovoked. The patient reports that he was at [facility] for alcohol detoxification prior to hospital admission and he was overall at his normal state of activity; given sub-massive pulmonary embolism, need for systemic anticoagulation. Hypoxia young age would be inclined to leave the patient on indefinite ____ would be inclined to leave the patient on indefinite anticoagulation. Discussed risks, benefits and alternative therapies to anticoagulation. Discussed anticoagulation with apixaban, Xarelto and warfarin. Discussed that all 3 of these are oral medications. Discussed that Xarelto and apixaban had a reversal agent; however, this reversal agent is not yet widely available. Discussed that with warfarin, the patient will need to have INR monitored as well as to watch certain medications and his diet. The patient expressed understanding. He reports his desire to proceed forward with Xarelto. Advised with Xarelto to take in the morning at the same time every day and with food for maximum absorption and maximum effect of this medication. The patient voiced understanding to this. Discussed liver enzymes that are slightly elevated. Discussed that the patient does have evidence of some liver damage, possibly due to fatty liver versus alcohol use. Anticipate that as patient gets further away from acute illness, his liver enzymes will resolve to normal. No evidence of liver cirrhosis and no need for avoidance of this medication per manufacture dosing guidelines. This was discussed with the patient. 2. Hypercoagulable workup and a phospholipid antibody panel and lupus anticoagulant are normal. Prothrombin gene mutation is normal. Factor V Leiden is normal. 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 I discussed this with the patient; this is not a traditionally checked mutation in the hypercoagulable workup. Protein S activity is within normal limits. Antithrombin III activity is within normal limits. Protein C antigen checked and slightly low. We will check protein C activity. Many factors could be contributing to low protein C antigen including active clot and active anticoagulation. Results of hypercoagulable workup ultimately will not change. Recommendation for anticoagulation for patient would be beneficial in the future for his family members. MD KARINE Roberts/olimpia/ll , 01:32 PM , 01:45 PM
[2017-12-02 15:38] LABS: Hemoglobin A1c 5.3 % (4.3-6.0)
[2017-12-03] MEDS: Oral Hygiene Kit OROPHARYNG SCH ×4 (01:40→15:30)
[2017-12-03] MEDS: Insulin NovoLIN Regular Correctional Sugar Inj SQ SCH ×4 (01:40→19:30)
[2017-12-03 07:09] LABS: Hematocrit 41.9 % (39.0-51.0); Hemoglobin 14.2 gm/dL (13.0-17.0); Mean Corpuscular HGB Conc 33.9 % (32.0-36.0); Mean Corpuscular Hemoglobin 29.5 pg (27.0-34.0); Mean Corpuscular Volume 87.1 fL (80.0-100.0); Mean Platelet Volume 9.2 fL (7.0-11.0); Platelet Count 410 th/mm3 (150-450); Red Blood Count 4.81 mil/mm3 (4.50-5.90); Red Cell Distribution Width 15.5 % (11.6-17.2); White Blood Count 13.4 th/mm3 (4.0-11.0)
[2017-12-03 07:14] LABS: Prothrombin Time 10.4 sec (9.8-11.6)
[2017-12-03 08:12] LABS: Alanine Aminotransferase 288 U/L (12-78); Albumin 3.2 g/dL (3.4-5.0); Alkaline Phosphatase 59 U/L (45-117); Anion Gap 15 meq/L (5-15); Aspartate Aminotransferase 177 U/L (15-37); Blood Urea Nitrogen 13 mg/dL (7-18); Calcium 8.9 mg/dL (8.5-10.1); Carbon Dioxide 19.5 meq/L (21.0-32.0); Chloride 106 meq/L (98-107); Glomerular Filtration Rate Greater Than 89 mL/min (>89); Glucose,Random 88 mg/dL (74-106); Magnesium 2.4 mg/dL (1.5-2.5); Phosphorus 4.2 mg/dL (2.5-4.9); Sodium 140 meq/L (136-145); Total Protein 8.2 g/dL (6.4-8.2)
[2017-12-03 08:38] LABS: Potassium 2.9 meq/L (3.5-5.1)
[2017-12-03] MEDS ORDERED: Potassium Chloride 25 MEQ Effervescent Tablet PO ONE (08:51)
[2017-12-03] MEDS ORDERED: Potassium Chlor 20 mEq Premix 20 MEQ/100 ML PIGGYBACK IV.SIG ONE (08:52)
[2017-12-03] MEDS: Chlorhexidine 0.12% Oral Kit 15 ML UDC OROPHARYNG SCH (09:38)
[2017-12-03] MEDS: Senna/Docusate Sodium 8.6/50 MG Tablet PO SCH ×2 (09:39→21:36)
[2017-12-03] MEDS: Pantoprazole Inj 40 MG Vial IV.PUSH SCH (09:39)
[2017-12-03] MEDS: Enoxaparin Inj 80 MG/0.8 ML Syringe SQ SCH ×2 (09:39→21:32)
[2017-12-03] MEDS: Folic Acid 1 MG Tablet PO SCH (09:39)
--- NOTE | 2017-12-03 10:07 | P.PN ---
Subjective Interval history: Follow-up visit submassive PE, MARILEE. Patient seen and examined today. Reports he is doing great. Off oxygen. States no shortness of breath or dyspnea. Denies pain and discomfort. Denies chest pain, headaches, dizziness. Denies fevers, chills, n/v/d. Denies dysuria. Denies HI/HI Physical Exam Vital signs: Vital Signs 12/02/17 12:00 12/02/17 16:00 12/02/17 17:45 Temperature 98.5 F 98.7 F Pulse Rate 74 63 60 Respiratory Rate 20 20 Blood Pressure 128/84 164/90 H Pulse Oximetry 98 97 12/02/17 19:00 12/02/17 20:00 12/02/17 22:00 Temperature 98.8 F Pulse Rate 88 90 Respiratory Rate 18 Blood Pressure 130/86 Pulse Oximetry 97 97 12/03/17 00:00 12/03/17 02:00 12/03/17 04:00 Temperature 98.7 F 98.6 F Pulse Rate 76 64 73 Respiratory Rate 20 20 Blood Pressure 121/67 121/62 Pulse Oximetry 97 96 12/03/17 06:00 12/03/17 08:00 Temperature 99.1 F Pulse Rate 70 69 Respiratory Rate 20 Blood Pressure 140/65 Pulse Oximetry 96 Intake & Output 12/02/17 12/03/17 12/03/17 18:59 06:59 18:59 Intake Total 200 / 200 1100 / 1100 Output Total 502 / 502 Balance -302 / -302 1100 / 1100 Weight 84.7 kg Intake: IV 200 / 200 100 / 100 Zosyn 4.5 GM Premix 4.5 gm In 200 / 200 100 / 100 100 ml @ 200 mls/hr IV.SIG Q6H NAYELY Rx#:[id number] Oral 1000 / 1000 Output: Urine 501 / 501 Stool 1 / Other: # Incontinent Voids 2 3 Date of Last Bowel Movement 12/02/17 12/03/17 # Bowel Movements 1 # Incontinent Bowel Movements 1 Narrative: GENERAL: This is a well-nourished, well-developed patient, in no apparent distress. SKIN: Warm and dry. HEENT: Normocephalic. Pupils equal round and reactive. Nose without bleeding. Airway patent. NECK: Trachea midline. CARDIOVASCULAR: Regular rate and rhythm without murmurs, gallops, or rubs. RESPIRATORY: Mildly coarse breath sounds. No wheezes, rales, or rhonchi. GASTROINTESTINAL: Abdomen soft, non-tender, nondistended. Bowel Sounds normoactive x4. MUSCULOSKELETAL: Extremities without clubbing, cyanosis, or edema. NEUROLOGICAL: Awake and alert. No focal neuro deficit. Moves all extremities. Normal speech. - Urinary Catheter Management Straight Cath placed during this visit: no Reason for continuing: Hourly intake/output Indwelling Urethral Catheter Cath placed during this visit: yes Reason for continuing: Hourly intake/output Insertion date: 11/26/17 Insertion time: 10:00 Results - Labs CBC & Chem 7: 12/03/17 06:01 12/03/17 06:01 Laboratory Results - last 24 hr 12/02/17 12/02/17 12/02/17 06:54 11:27 16:43 WBC RBC Hgb Hct MCV MCH MCHC RDW Plt Count MPV PT INR Sodium Potassium Chloride Carbon Dioxide Anion Gap BUN Creatinine Estimated GFR POC Glucose 111 H 98 Random Glucose Hemoglobin A1c 5.3 Calcium Phosphorus Magnesium Total Bilirubin AST ALT Alkaline Phosphatase Total Protein Albumin 12/03/17 12/03/17 12/03/17 00:05 06:01 06:01 WBC 13.4 H RBC 4.81 Hgb 14.2 Hct 41.9 MCV 87.1 MCH 29.5 MCHC 33.9 RDW 15.5 Plt Count 410 MPV 9.2 PT 10.4 INR 1.0 Sodium Potassium Chloride Carbon Dioxide Anion Gap BUN Creatinine Estimated GFR POC Glucose 97 Random Glucose Hemoglobin A1c Calcium Phosphorus Magnesium Total Bilirubin AST ALT Alkaline Phosphatase Total Protein Albumin 12/03/17 12/03/17 06:01 06:17 WBC RBC Hgb Hct MCV MCH MCHC RDW Plt Count MPV PT INR Sodium 140 Potassium 2.9 L* Chloride 106 Carbon Dioxide 19.5 L Anion Gap 15 BUN 13 Creatinine 0.76 Estimated GFR Greater than 89 POC Glucose 98 Random Glucose 88 Hemoglobin A1c Calcium 8.9 Phosphorus 4.2 Magnesium 2.4 Total Bilirubin 0.7 AST 177 H ALT 288 H Alkaline Phosphatase 59 Total Protein 8.2 Albumin 3.2 L - Procedures DATE: 11/26/2017 Bronchoscopy/diagnostic and therapeutic INDICATION: Refractory hypoxemic respiratory failure/acute CONSENT Informed consent for procedure was not obtained from father Brett Thrasher as procedure was considered emergent due to life-threatening worsening of clinical condition DESCRIPTION OF THE PROCEDURE The patient was placed in supine position. The patient was on pressure control /assist control ventilation. FiO2 100%. PEEP of 10. I entered the 8.0 ET tube with the fiberoptic bronchoscope. Minimal to no thin secretions noted in ETT. The lucy was sharp. I evaluated the right upper, middle and lower lobes. Few thin secretions noted in the right lower lobe. These were suctioned and quickly. The mucosa was normal. No masses were identified. I evaluated the left upper/lingula lower lobe. No secretions were noted. Gently lavaged with 30 cc saline. Bronchus scope was withdrawn and the procedure stopped. I did not perform a Lukens trap lavage due to severity of patient's clinical condition. And minimal secretions. ESTIMATED BLOOD LOSS: Minimal COMPLICATIONS: No apparent complications. STAT chest x-ray pending at time of dictation. vent management sp TPA Assessment and Plan - Plan 36yM with etoh withdraw syndrome now with severe life-threatening aspiration pneumonitis/pneumonia and massive pulmonary embolism causing life-threatening hypoxemia. Admitted to critical care for respiratory failure patient was intubated and extubated. Transfer of care to hospitalist group. Submassive pulmonary embolism, systemic TPA Recent aspiration pneumonitis/pneumonia Recent hypoxic respiratory failure status post intubation -Continue to monitor respiratory status. On O2 nasal cannula. Wean off, keep O2 sat greater than 90% -Duo nebs scheduled, as needed -On IV Zosyn with stop date 12/02 -Counseled on smoking cessation. -Continue full dose Lovenox, will transition to Xarelto as per wedger machine recommendation -Production Inspector, Dr. Mao followed the patient transition to p.o. anticoagulants, Xarelto was the choice. -PT eval treat Alcohol withdrawal Recent detox at [facility] -Off CIWA -Continue thiamine, multivitamin, folate -Monitor LFTs ?Suicidal ideation -Denies any SI/HI on exam -Psychiatry consulted for further evaluation. Hypokalemia -Potassium supplement -Monitor potassium levels -Continue replacements. DVT prop Lovenox Code Status: Full code Discussed Condition With: Patient, nurse Discharge Planning: Plan to DC when clinically improved. Possibly in 2 days. Procedures - Arterial Line Size (Gauge): 20
[2017-12-03] MEDS: Sodium Chloride 0.9% 2 ML Flush BID IV.FLUSH SCH ×2 (10:46→21:33)
--- NOTE | 2017-12-03 14:41 | P.CONPSY ---
Provisional Diagnosis Admission Date: November 24, 2017 07:27 Joppa I.: Alcohol-induced mood disorder, alcohol use disorder, history of depression and anxiety Joppa II.: Deferred History of Present Illness Service: Medicine Primary Care Provider: Flakita Barroso DO Family Provider: Brett Thrasher MD History of Present Illness: The patient is a 36-year-old man, domiciled with girlfriend in [facility] , employed, with a psychiatric history of depression, anxiety, alcohol use disorder, no previous psychiatric hospitalizations, no previous suicide attempts , who was hospitalized with etoh withdraw syndrome now with severe life- threatening aspiration pneumonitis/pneumonia and massive pulmonary embolism causing life-threatening hypoxemia. Admitted to critical care for respiratory failure patient was intubated and extubated. Transfer of care to hospitalist group. Consulted to psychiatry due to potential depression and suicidal ideation. Chart reviewed. Case discussed with nursing charge. My psychiatric evaluation I find a patient that is calm, cooperative, very pleasant. The patient reports that he is happy to be alive, "thankful to god for this opportunity". Patient reports that his plan is once discharge to start a new life, with no alcohol, without addictions. He is planning to attend AA meetings and if possible to get him an outpatient detox. He reports that he feels energetic, in a good mood, denies anhedonia, denies hopelessness, denies helplessness, denies worthlessness, he denies problems with appetite, sleep, he denies suicidal and homicidal ideation, denies visual and auditory hallucinations. The patient is fully oriented x3, no attention deficit, no fluctuation of consciousness. No withdrawal symptoms present at the moment. PMFSH - History History Provided By: Patient - Medical History Medical History: Medical History (Last Reviewed 12/02/17 @ 08:00 by Florecita Hodges) ETOH abuse - Tobacco History Second Hand Smoke Exposure: No Tobacco Use In Past 30 Days: Yes Smoking Status: Current every day smoker Tobacco Type: Cigarettes - Alcohol History How Often Do You Have a Drink Containing Alcohol: 4 or more times a week - Substance Use History Substance History: No History of Abuse - Travel History Recent Travel in the [facility] Within the Last 8 Weeks: No Recent Travel Out of the Country Within the Last 8 Weeks: No - Immunization History Tetanus Immunization: Unsure Hx Influenza Vaccine This Season: No Medications and Allergies Active Medications: Active Medications Al Hydroxide/Mg Hydroxide (Milk Of Magnesia Liq) 30 ml PO Q12H PRN PRN Reason: Mild Constipation Chlorhexidine Gluconate (Peridex 0.12% Oral Kit) 15 ml OROPHARYNG BID@0800, 2000 REPLACED BY [facility] Last Admin: 12/03/17 09:38 Dose: Not Given Dextrose (D50w Vial) 50 ml IV.PUSH UNSCH PRN PRN Reason: PER HYPOGLYCEMIA PROTOCOL Enoxaparin Sodium (Lovenox Inj) 80 mg SQ Q12HR REPLACED BY [facility] Last Admin: 12/03/17 09:39 Dose: 80 mg Folic Acid (Folic Acid) 1 mg PO DAILY REPLACED BY [facility] Last Admin: 12/03/17 09:39 Dose: 1 mg Glucagon (Glucagon Inj) 1 mg OTHER PRN PRN PRN Reason: for Hypoglycemia Protocol Hyoscyamine (Levsin) 0.125 mg PO Q4H PRN PRN Reason: oral secretions Last Admin: 11/30/17 11:12 Dose: 0.125 mg Magnesium Sulfate 4 gm/ Sodium (Chloride) 100 mls @ 50 mls/hr IV.SIG UNSCH PRN PRN Reason: For Magnesium 0.9 - 1.1 mg/dL Magnesium Sulfate 2 gm/ Sodium (Chloride) 100 mls @ 50 mls/hr IV.SIG UNSCH PRN PRN Reason: For Magnesium 1.2 - 1.6 mg/dL Potassium Chloride (Kcl 40 Meq Premix Inj) 40 meq in 100 mls @ 25 mls/hr IV.SIG Q2H PRN PRN Reason: For Potassium 2.8 - 3.2 mEq/L Potassium Chloride (Kcl 20 Meq Premix Inj) 20 meq in 100 mls @ 50 mls/hr IV.SIG Q2H PRN PRN Reason: For Potassium 3.3 - 3.5 mEq/L Potassium Chloride (Kcl 40 Meq Premix Inj) 40 meq in 100 mls @ 25 mls/hr IV.SIG UNSCH PRN PRN Reason: For Potassium 3.3 - 3.5 mEq/L Potassium Chloride (Kcl 20 Meq Premix Inj) 20 meq in 100 mls @ 50 mls/hr IV.SIG Q2H PRN PRN Reason: For Potassium 2.8 - 3.2 mEq/L Last Infusion: 12/01/17 10:58 Dose: Infused Potassium Phosphate 30 mmol/ (Sodium Chloride) 260 mls @ 42 mls/hr IV.SIG UNSCH PRN PRN Reason: SEE LABEL COMMENTS Sodium Phosphate 30 mmol/ (Sodium Chloride) 260 mls @ 42 mls/hr IV.SIG UNSCH PRN PRN Reason: For Phosphorus < 2.5 mg/dL Insulin Human Regular (Novolin R Correctional Sugar Inj) 0 units SQ Q6HR NAYELY; Protocol Last Admin: 12/03/17 06:24 Dose: Not Given Magnesium Oxide (Mag-Ox) 800 mg PO UNSCH PRN PRN Reason: For Magnesium 1.2 - 1.6 mg/dL Metoclopramide HCl (Reglan Inj) 5 mg IV.PUSH Q8HR NAYELY; Protocol Last Admin: 12/03/17 06:25 Dose: 5 mg Miscellaneous Medication () 1 each OROPHARYNG 0000,0400,1200,1600 REPLACED BY [facility] Last Admin: 12/03/17 11:45 Dose: Not Given Multivitamins (Theragran) 1 tab PO DAILY REPLACED BY [facility] Last Admin: 12/03/17 09:39 Dose: 1 tab Ondansetron HCl (Zofran Inj) 4 mg IV.PUSH Q4H PRN PRN Reason: NAUSEA Last Admin: 11/30/17 10:38 Dose: 4 mg Pantoprazole Sodium (Protonix Inj) 40 mg IV.PUSH Q24H REPLACED BY [facility] Last Admin: 12/03/17 09:39 Dose: 40 mg Potassium Bicarb/Potassium Chloride (K-Lyte Cl Eff) 50 meq PO UNSCH PRN PRN Reason: For Potassium 3.3 - 3.5 mEq/L Potassium Chloride (Kcl) 10 meq PO DAILY REPLACED BY [facility] Potassium Phosphate (K-Phos Original) 2,000 mg PO Q4H PRN PRN Reason: Phosphorus Less Than 2.5 mg/dL Potassium Phosphate (K-Phos Original) 2,000 mg PO UNSCH PRN PRN Reason: SEE LABEL COMMENTS Senna/Docusate Sodium (Ellie-Colace) 1 tab PO BID REPLACED BY [facility] Last Admin: 12/03/17 09:39 Dose: 1 tab Sodium Chloride (Ns Flush) 2 ml IV.FLUSH BID REPLACED BY [facility] Last Admin: 12/03/17 10:46 Dose: 2 ml Sodium Chloride (Ns Flush) 2 ml IV.FLUSH PRN PRN PRN Reason: FLUSH AFTER USING IV ACCESS Last Admin: 11/27/17 09:07 Dose: 2 ml Thiamine HCl (Vitamin B1) 100 mg PO BID REPLACED BY [facility] Last Admin: 12/03/17 09:39 Dose: 100 mg Allergies Allergy/AdvReac Type Severity Reaction Status Date / Time No Known Allergies Allergy Unverified 11/24/17 05:43 Home Medications Medication Instructions Recorded Confirmed Type desvenlafaxine succinate 50 mg PO DAILY 11/24/17 11/24/17 History dexlansoprazole 60 mg PO DAILY 11/24/17 11/24/17 History Exam Vital signs: Vital Signs 12/02/17 16:00 12/02/17 17:45 12/02/17 19:00 Temperature 98.7 F Pulse Rate 63 60 Respiratory Rate 20 Blood Pressure 164/90 H Pulse Oximetry 97 97 12/02/17 20:00 12/02/17 22:00 12/03/17 00:00 Temperature 98.8 F 98.7 F Pulse Rate 88 90 76 Respiratory Rate 18 20 Blood Pressure 130/86 121/67 Pulse Oximetry 97 97 12/03/17 02:00 12/03/17 04:00 12/03/17 06:00 Temperature 98.6 F Pulse Rate 64 73 70 Respiratory Rate 20 Blood Pressure 121/62 Pulse Oximetry 96 12/03/17 08:00 12/03/17 10:00 12/03/17 12:00 Temperature 99.1 F 98.8 F Pulse Rate 65 72 72 Respiratory Rate 20 20 Blood Pressure 140/65 139/92 H Pulse Oximetry 96 95 Intake & Output 12/02/17 12/03/17 12/03/17 18:59 06:59 18:59 Intake Total 200 / 200 1100 / 1100 Output Total 502 / 502 Balance -302 / -302 1100 / 1100 Weight 84.7 kg Intake: IV 200 / 200 100 / 100 Zosyn 4.5 GM Premix 4.5 gm In 200 / 200 100 / 100 100 ml @ 200 mls/hr IV.SIG Q6H REPLACED BY [facility] Rx#:[id number] Oral 1000 / 1000 Output: Urine 501 / 501 Stool 1 / Other: # Incontinent Voids 2 3 Date of Last Bowel Movement 12/02/17 12/03/17 12/03/17 # Bowel Movements 1 # Incontinent Bowel Movements 1 Mental Status Examination Appearance: Appropriate Consciousness: Alert Orientation: x4 Motor Activity: Normal gait Speech: Unremarkable Language: Adequate Fund of Knowledge: Adequate Attention and Concentration: Adequate Memory: Unremarkable Mood: Appropriate Affect: Appropriate Thought Process & Associations: Intact Thought Content: Appropriate Hallucination Type: None Delusion Type: None Suicidal Ideation: No Suicidal Plan: No Suicidal Intention: No Homicidal Ideation: No Homicidal Plan: No Homicidal Intention: No Insight: Adequate Judgment: Adequate Assessment and Plan - Assessment (1) Alcohol-induced mood disorder Code(s): F10.94 - Alcohol use, unspecified with alcohol-induced mood disorder Status: Acute - Plan Plan: On my psychiatric evaluation today the patient does not present any neuropsychiatric symptoms or require an immediate psychiatric intervention. The patient denies a dermatology of depression, anxiety, naty and psychosis. He denies suicidal and homicidal ideation, denies visual and auditory hallucinations. No withdrawal symptoms, no agitation, no aggressive behavior, no filtration of consciousness present. He is logical, coherent and relevant. Future oriented. No admission in psychiatry is indicated at this moment. No psychotropics indicated. Extensive support, motivational psychoeducation provided. Justification for Continued Inpatient Stay: No admission in psychiatry indicated
--- NOTE | 2017-12-03 15:27 | P.PNONC ---
Subjective Interval history: Resting comfortably in bed. Girlfriend at bedside. Objective Vital Signs/Intake & Output: Vital Signs 12/02/17 16:00 12/02/17 17:45 12/02/17 19:00 Temperature 98.7 F Pulse Rate 63 60 Respiratory Rate 20 Blood Pressure 164/90 H Pulse Oximetry 97 97 12/02/17 20:00 12/02/17 22:00 12/03/17 00:00 Temperature 98.8 F 98.7 F Pulse Rate 88 90 76 Respiratory Rate 18 20 Blood Pressure 130/86 121/67 Pulse Oximetry 97 97 12/03/17 02:00 12/03/17 04:00 12/03/17 06:00 Temperature 98.6 F Pulse Rate 64 73 70 Respiratory Rate 20 Blood Pressure 121/62 Pulse Oximetry 96 12/03/17 08:00 12/03/17 10:00 12/03/17 12:00 Temperature 99.1 F 98.8 F Pulse Rate 65 72 72 Respiratory Rate 20 20 Blood Pressure 140/65 139/92 H Pulse Oximetry 96 95 Intake & Output 12/02/17 12/03/17 12/03/17 18:59 06:59 18:59 Intake Total 200 / 200 1100 / 1100 Output Total 502 / 502 Balance -302 / -302 1100 / 1100 Weight 84.7 kg Intake: IV 200 / 200 100 / 100 Zosyn 4.5 GM Premix 4.5 gm In 200 / 200 100 / 100 100 ml @ 200 mls/hr IV.SIG Q6H NAYELY Rx#:[id number] Oral 1000 / 1000 Output: Urine 501 / 501 Stool 1 / Other: # Incontinent Voids 2 3 Date of Last Bowel Movement 12/02/17 12/03/17 12/03/17 # Bowel Movements 1 # Incontinent Bowel Movements 1 Result Diagrams: 12/03/17 06:01 12/03/17 06:01 Laboratory Results: Laboratory Results - last 24 hr 12/02/17 12/02/17 12/02/17 06:54 14:41 16:43 WBC RBC Hgb Hct MCV MCH MCHC RDW Plt Count MPV PT INR Protein C Activity 127 Sodium Potassium Chloride Carbon Dioxide Anion Gap BUN Creatinine Estimated GFR POC Glucose 98 Random Glucose Hemoglobin A1c 5.3 Calcium Phosphorus Magnesium Total Bilirubin AST ALT Alkaline Phosphatase Total Protein Albumin 12/03/17 12/03/17 12/03/17 00:05 06:01 06:01 WBC 13.4 H RBC 4.81 Hgb 14.2 Hct 41.9 MCV 87.1 MCH 29.5 MCHC 33.9 RDW 15.5 Plt Count 410 MPV 9.2 PT 10.4 INR 1.0 Protein C Activity Sodium Potassium Chloride Carbon Dioxide Anion Gap BUN Creatinine Estimated GFR POC Glucose 97 Random Glucose Hemoglobin A1c Calcium Phosphorus Magnesium Total Bilirubin AST ALT Alkaline Phosphatase Total Protein Albumin 12/03/17 12/03/17 06:01 06:17 WBC RBC Hgb Hct MCV MCH MCHC RDW Plt Count MPV PT INR Protein C Activity Sodium 140 Potassium 2.9 L* Chloride 106 Carbon Dioxide 19.5 L Anion Gap 15 BUN 13 Creatinine 0.76 Estimated GFR Greater than 89 POC Glucose 98 Random Glucose 88 Hemoglobin A1c Calcium 8.9 Phosphorus 4.2 Magnesium 2.4 Total Bilirubin 0.7 AST 177 H ALT 288 H Alkaline Phosphatase 59 Total Protein 8.2 Albumin 3.2 L Culture Results: Microbiology 11/26/17 05:43 Aerobic Blood Culture - Final Blood - Peripheral No growth in 5 days Anaerobic Blood Culture - Final No growth in 5 days 11/26/17 05:38 Aerobic Blood Culture - Final Blood - Peripheral No growth in 5 days Anaerobic Blood Culture - Final No growth in 5 days Medications: Active Medications Generic Name Dose Route Start Last Admin Trade Name Freq PRN Reason Stop Dose Admin Enoxaparin Sodium 80 mg 11/30/17 11:00 12/03/17 09:39 Lovenox Inj SQ 12/04/17 08:00 80 mg Q12HR NAYELY Administration Folic Acid 1 mg 11/24/17 09:00 12/03/17 09:39 Folic Acid PO 1 mg DAILY NAYELY Administration Hyoscyamine 0.125 mg 11/30/17 10:13 11/30/17 11:12 Levsin PO 0.125 mg Q4H PRN Administration oral secretions Potassium Chloride 20 meq in 100 mls @ 50 mls/hr 12/01/17 09:01 12/01/17 10: 58 Kcl 20 Meq Premix Inj IV.SIG Infused Q2H PRN Infusion For Potassium 2.8 - 3.2 mEq/L Insulin Human Regular 0 units 11/24/17 12:00 12/03/17 06:24 Novolin R Correctional Sugar Inj SQ Not Given Q6HR [facility] Protocol Metoclopramide HCl 5 mg 11/30/17 14:00 12/03/17 06:25 Reglan Inj IV.PUSH 5 mg Q8HR NAYELY Administration Protocol Miscellaneous Medication 1 each 11/24/17 12:00 12/03/17 11:45 OROPHARYNG Not Given 0000,0400,1200,1600 [facility] Multivitamins 1 tab 11/24/17 09:00 12/03/17 09:39 Theragran PO 1 tab DAILY NAYELY Administration Ondansetron HCl 4 mg 11/30/17 09:49 11/30/17 10:38 Zofran Inj IV.PUSH 4 mg Q4H PRN Administration NAUSEA Pantoprazole Sodium 40 mg 11/24/17 09:00 12/03/17 09:39 Protonix Inj IV.PUSH 40 mg Q24H NAYELY Administration Senna/Docusate Sodium 1 tab 11/24/17 09:00 12/03/17 09:39 Ellie-Colace PO 1 tab BID NAYELY Administration Sodium Chloride 2 ml 11/25/17 21:00 12/03/17 10:46 Ns Flush IV.FLUSH 2 ml BID NAYELY Administration Sodium Chloride 2 ml 11/25/17 09:51 11/27/17 09:07 Ns Flush IV.FLUSH 2 ml PRN PRN Administration FLUSH AFTER USING IV ACCESS Thiamine HCl 100 mg 11/24/17 09:00 12/03/17 09:39 Vitamin B1 PO 100 mg BID NAYELY Administration Objective Remarks: GENERAL: Well-nourished, well-developed patient. SKIN: Warm and dry. HEAD: Normocephalic. EYES: No scleral icterus. No injection or drainage. RESPIRATORY: No accessory muscle use. EXTREMITIES: No cyanosis, or edema. MUSCULOSKELETAL: Adequate muscle tone. NEUROLOGICAL: No obvious focal deficit. Awake, alert, and oriented x3. PSYCHIATRIC: Appropriate mood and affect; insight and judgment normal. Assessment/Plan - Plan 1. Unprovoked pulmonary embolism: s/p TPA. Currently on lovenox therapy. Primary team planning for discharge tomorrow. He will be transitioned to Xartelo 20 mg Qdaily. No need for loading dose as he has been on lovenox, heparin therapy while inpatient. counseled patient to take this medication in the morning with food and at the same time every day. He voiced understanding.
[2017-12-04] MEDS: Oral Hygiene Kit OROPHARYNG SCH ×2 (01:51→03:13)
[2017-12-04] MEDS: Insulin NovoLIN Regular Correctional Sugar Inj SQ SCH ×2 (01:51→05:51)
[2017-12-04 06:30] LABS: INR 1.1 Ratio; Prothrombin Time 10.9 sec (9.8-11.6)
[2017-12-04 06:51] LABS: Albumin 3.3 g/dL (3.4-5.0); Anion Gap 15 meq/L (5-15); Aspartate Aminotransferase 227 U/L (15-37); Blood Urea Nitrogen 12 mg/dL (7-18); Calcium 9.2 mg/dL (8.5-10.1); Carbon Dioxide 17.8 meq/L (21.0-32.0); Chloride 104 meq/L (98-107); Glomerular Filtration Rate Greater Than 89 mL/min (>89); Glucose,Random 79 mg/dL (74-106); Potassium 3.1 meq/L (3.5-5.1); Sodium 137 meq/L (136-145)
[2017-12-04 06:52] LABS: Alanine Aminotransferase 466 U/L (12-78)
[2017-12-04 06:55] LABS: Alkaline Phosphatase 60 U/L (45-117)
[2017-12-04 07:00] LABS: Baso # (Auto) 0.3 th/mm3 (0.0-0.2); Baso % (Auto) 1.7 % (0.0-2.0); Eos # (Auto) 0.3 th/mm3 (0.0-0.4); Eos % (Auto) 1.9 % (0.0-4.0); Hematocrit 42.4 % (39.0-51.0); Hemoglobin 14.4 gm/dL (13.0-17.0); Lymph # (Auto) 2.4 th/mm3 (1.0-4.8); Lymph % (Auto) 15.8 % (9.0-44.0); Mean Corpuscular Hemoglobin 29.4 pg (27.0-34.0); Mean Corpuscular Volume 86.5 fL (80.0-100.0); Mean Platelet Volume 9.1 fL (7.0-11.0); Mono # (Auto) 1.2 th/mm3 (0.0-0.9); Mono % (Auto) 8.2 % (0.0-8.0); Neut # (Auto) 10.8 th/mm3 (1.8-7.7); Neut % (Auto) 72.4 % (16.0-70.0); Platelet Count 472 th/mm3 (150-450); Red Cell Distribution Width 15.9 % (11.6-17.2); White Blood Count 14.9 th/mm3 (4.0-11.0)
--- NOTE | 2017-12-04 08:50 | P.DS ---
Date of admission: 11/24/17 07:27 Primary care physician: Flakita Barroso DO Attending physician on discharge: Arturo Hutchison Anticipated date of discharge: 12/04/17 Brief History from admission: The patient is a 36-year-old male with a history of ETOH abuse, who was at a [facility] for alcohol detoxification, became confused, hallucinating and possibly going into alcohol withdrawal. EVAC found him tachycardic, hypertensive. In the ER, he was given Ativan 10 mg total, Benadryl 50 mg and ketamine. His laboratory data is significant for elevated liver enzymes with AST 154, ALT 158 and total bilirubin 1.8. Urine drug screen is pending and his serum alcohol level is less than 3. Chest x-ray in the ED showed no acute findings identified. When seen, the patient is tachycardic with heart rate in the 120s, hypertensive with blood pressure 156/85. He is on room air oxygen with a saturation of 98-100%. History was obtained from reviewing medical records, as the patient is a poor historian due to his mental status. Pt immediately started on CIWA protocol and Ativan @ mg IVP immediate and repeated 3 times in first hour still worsening DT benadryl 50 mg IVP and haldol 2 mg IVP and the Ketamine 50 mg IVP and ativan 2 mg followed by 2 mg ativan and then admitted to ICU. Patient was intubated sedated on Diprivan and fentanyl for airway protection. Patient update on day of discharge: Follow-up visit EtOH abuse, submassive PE, MARILEE. Patient seen and examined today. Reports he is doing really well. States no shortness of breath or dyspnea. Denies pain and discomfort. Denies chest pain, headaches, dizziness. Denies fevers, chills, n/v/d. Denies dysuria. Denies HI/SI. No acute issues overnight. States that he is ready to go home. States that he is going to a voluntary rehab facility and outpatient for alcohol abuse. Extensively with patient use of Xarelto and alcohol as being contraindicated risk, including bleeding and , and benefits have been discussed. Verbalized understanding. DS: Diagnosis - Discharge Diagnosis (1) Pulmonary embolism Status: Acute (2) Alcohol-induced mood disorder Status: Acute DS: Medications - Discharge Medications Prescriptions: pantoprazole [Protonix] 20 mg PO DAILY #30 tab potassium chloride 20 meq PO DAILY #15 cap rivaroxaban [Xarelto] 20 mg PO DAILY #30 tab DS: Summary Hospital Course: Patient is a 36-year-old male with past medical history of EtOH abuse, came into the hospital with [employer] [place] withdrawal syndrome. Severe life-threatening aspiration pneumonitis/pneumonia and month massive pulmonary embolism has been found causing life-threatening hypoxemia. He was admitted to critical care for respiratory failure in observation for his EtOH withdrawals. Patient was intubated and extubated successfully. Patient had submassive pulmonary embolism treated with systemic TPA. His recent aspiration pneumonitis/ pneumonia with recent hypoxic respiratory failure status post intubation has resolved. He was treated with IV Zosyn with a stop date 12/02/17. He was counseled on smoking cessation. Patient was given full dose Lovenox and was seen by Dr. Mao and was transitioned to Xarelto as per her recommendations. This is been discussed extensively with patient. He will need to follow-up with his PCP. Patient has alcohol withdrawal plan to recently detox [facility] but was unable to do so as he came to the hospital. He is off CIWA protocol. He was started on thiamine, multivitamin, folate which he needs to continue. His LFTs continues to be slightly elevated probably from hepatomegaly, hepatic steatosis secondary to alcohol abuse. He has been counseled extensively to quit alcohol. Plan for outpatient rehabilitation at the voluntary facility. Initially he had Questionable suicidal ideation, he was on one-to-one sitter. He was evaluated by psychiatry , Dr. Dent and he was deemed competent and not suicidal or homicidal. Patient has been seen ambulating the hallway without shortness of breath or dyspnea. Patient has hypokalemia potassium replacements have been provided. He needs a repeat BMP in 5 days. He will continue his potassium supplements for now. Patient has met maximal benefits of hospitalization. Clinically stable for discharge. He will need to follow-up with his PCP in the outpatient setting. - Time Spent with Patient Total time spent providing and/or coordinating discharge services: Less than 30 minutes - Quality: VTE Deep Vein Thrombosis/Pulmonary Embolism Present on Admission: Yes Exam Vital signs: Vital Signs 12/03/17 10:00 12/03/17 12:00 12/03/17 16:00 Temperature 98.8 F Pulse Rate 72 72 97 H Respiratory Rate 20 Blood Pressure 139/92 H Pulse Oximetry 95 12/03/17 18:00 12/03/17 20:00 12/04/17 00:00 Temperature 98.2 F 99.0 F Pulse Rate 97 H 60 85 Respiratory Rate 18 Blood Pressure 140/60 152/75 H Pulse Oximetry 100 98 12/04/17 04:00 12/04/17 06:08 Temperature 98.4 F Pulse Rate 90 85 Respiratory Rate 18 Blood Pressure 126/59 L Pulse Oximetry 95 Intake & Output 12/03/17 12/04/17 12/04/17 18:59 06:59 18:59 Intake Total 100 / 100 Output Total Balance 99 / 99 Weight 87.2 kg Intake: IV 100 / 100 KCl 20 mEq Premix Inj 20 meq In 100 / 100 100 ml @ 50 mls/hr IV.SIG ONCE ONE Rx#:[id number] Output: Stool Other: # Voids 4 Date of Last Bowel Movement 12/03/17 12/03/17 # Bowel Movements 1 # Incontinent Bowel Movements 1 Narrative: GENERAL: This is a well-nourished, well-developed patient, in no apparent distress. SKIN: Warm and dry. HEENT: Normocephalic. Pupils equal round and reactive. Nose without bleeding. Airway patent. NECK: Trachea midline. CARDIOVASCULAR: Regular rate and rhythm without murmurs, gallops, or rubs. RESPIRATORY: Mildly coarse breath sounds. No wheezes, rales, or rhonchi. GASTROINTESTINAL: Abdomen soft, non-tender, nondistended. Bowel Sounds normoactive x4. MUSCULOSKELETAL: Extremities without clubbing, cyanosis, or edema. NEUROLOGICAL: Awake and alert. No focal neuro deficit. Moves all extremities. Normal speech. Results Procedures completed during hospitalization: DATE: 11/26/2017 Bronchoscopy/diagnostic and therapeutic INDICATION: Refractory hypoxemic respiratory failure/acute CONSENT Informed consent for procedure was not obtained from father Brett Thrasher as procedure was considered emergent due to life-threatening worsening of clinical condition DESCRIPTION OF THE PROCEDURE The patient was placed in supine position. The patient was on pressure control /assist control ventilation. FiO2 100%. PEEP of 10. I entered the 8.0 ET tube with the fiberoptic bronchoscope. Minimal to no thin secretions noted in ETT. The lucy was sharp. I evaluated the right upper, middle and lower lobes. Few thin secretions noted in the right lower lobe. These were suctioned and quickly. The mucosa was normal. No masses were identified. I evaluated the left upper/lingula lower lobe. No secretions were noted. Gently lavaged with 30 cc saline. Bronchus scope was withdrawn and the procedure stopped. I did not perform a Lukens trap lavage due to severity of patient's clinical condition. And minimal secretions. ESTIMATED BLOOD LOSS: Minimal COMPLICATIONS: No apparent complications. STAT chest x-ray pending at time of dictation. vent management sp TPA Labs on day of discharge: Labs from last 24 hours 12/04/17 12/04/17 12/04/17 05:50 04:40 04:40 WBC 14.9 H RBC 4.90 Hgb 14.4 Hct 42.4 MCV 86.5 MCH 29.4 MCHC 34.0 RDW 15.9 Plt Count 472 H MPV 9.1 Prelim Diff (Auto) Slide review pending Neut % (Auto) 72.4 H Lymph % (Auto) 15.8 Holmes % (Auto) 8.2 H Eos % (Auto) 1.9 Baso % (Auto) 1.7 Neut # (Auto) 10.8 H Lymph # (Auto) 2.4 Holmes # (Auto) 1.2 H Eos # (Auto) 0.3 Baso # (Auto) 0.3 H WBC Differential Pending Differential Comment . PT INR Protein C Activity Sodium 137 Potassium 3.1 L Chloride 104 Carbon Dioxide 17.8 L Anion Gap 15 BUN 12 Creatinine 0.68 Estimated GFR Greater than 89 POC Glucose 83 Random Glucose 79 Calcium 9.2 Total Bilirubin 0.7 AST 227 H ALT 466 H Alkaline Phosphatase 60 Total Protein 8.0 Albumin 3.3 L 12/04/17 12/04/17 12/02/17 04:40 00:37 14:41 WBC RBC Hgb Hct MCV MCH MCHC RDW Plt Count MPV Prelim Diff (Auto) Neut % (Auto) Lymph % (Auto) Holmes % (Auto) Eos % (Auto) Baso % (Auto) Neut # (Auto) Lymph # (Auto) Holmes # (Auto) Eos # (Auto) Baso # (Auto) WBC Differential Differential Comment PT 10.9 INR 1.1 Protein C Activity 127 Sodium Potassium Chloride Carbon Dioxide Anion Gap BUN Creatinine Estimated GFR POC Glucose 89 Random Glucose Calcium Total Bilirubin AST ALT Alkaline Phosphatase Total Protein Albumin - Impressions ITS Impressions Liver Ultrasound 11/24/17 00:00 CONCLUSION: 1. Hepatomegaly with steatosis. 2. Spleen measures at the upper limits for normal in size. Chest CTA 11/26/17 00:00 CONCLUSION: 1. Small volume right sided acute pulmonary emboli. 2. Bibasilar pulmonary consolidations. Head CT 11/27/17 05:00 CONCLUSION: 1. No acute intracranial abnormality. 2. Paranasal sinus mucosal disease. . Chest X-Ray 11/30/17 00:00 CONCLUSION: Improving right mid and lower lung areas of consolidation or atelectasis. Discharge Plan - Discharge Disposition Patient Disposition: Discharge Home - Discharge Condition Condition: Stable - Discharge Order Discharge Orders: Discharge Order (Routine); Ordered 12/04/17 Ordered By: Shell Mccoy - Discharge Details Anticipated Discharge Date: 12/04/17 - Physicians Team Primary Care Provider: Flakita Barroso Attending Provider: Arturo Hutchison Other Providers: Natacha Mao ; Romel Dent MD
[2017-12-04] MEDS ORDERED: Potassium Chloride 10 MEQ ER Capsule PO SCH (09:00)
[2017-12-04] MEDS ORDERED: Rivaroxaban 20 MG Tablet PO SCH (09:00)
[2017-12-04] MEDS ORDERED: Pantoprazole Sodium 20 MG DR Tablet PO SCH (09:00)
[2017-12-04] MEDS: Senna/Docusate Sodium 8.6/50 MG Tablet PO SCH (09:26)
[2017-12-04] MEDS: Folic Acid 1 MG Tablet PO SCH (09:26)
[2017-12-04] MEDS: Sodium Chloride 0.9% 2 ML Flush BID IV.FLUSH SCH (09:27)
[2017-12-04 09:37] VITALS: BP 115/81; RESP 14; TEMP 98.6; O2SAT 97
[2017-12-04 09:58] LABS: Eosinophils 1 % (0-4); Metamyelocytes 7 % (0-1); Monocytes 6 % (0-8); Myelocytes 4 % (0-0)
[2017-12-04 10:00] LABS: Lymphocytes 14 % (9-44); Platelet Morphology Normal (Normal); RBC Morphology Normal (Normal)
[2017-12-04 11:04] VITALS: PULSE 65
[2017-12-05] MEDS ORDERED: Potassium Chloride 10 MEQ ER Capsule PO SCH (09:00)
== END 2017-12-04 11:53 | disposition home or self-care (01) ==
LOC: NEPE 05:33 → NEDA 07:27 → HIMC 08:15 → N05 12-01 15:30
PROVIDERS: ADMIT Internal Medicine; ATTEND Hospitalist